=== PATIENT | female | born 1965 | race Caucasian/White ===

== ENCOUNTER 2016-11-19 09:04 | Inpatient (IN) | payer SELFPAY ==
[~2016-11-19] VITALS: Ht 157.5 cm; Wt 47.9 kg
[2016-11-19] VITALS (11 sets, daily range): BP systolic 110–145; BP diastolic 58–86; PULSE 75–103; RESP 18–28; TEMP 97.3–98.6; O2SAT 93–98
[~2016-11-19 09:04] MED LIST: ALBU0.086 INH; ALBU8I INH; ALPR0.5T3 PO; DIAZ5 PO; DILA8TAB4 PO; IPRA0.02 NEB; VENTAER INH; Z.0.OXYGEN INH
[2016-11-19] MEDS ORDERED: ALBU6.7H INH (09:18)
[2016-11-19] MEDS ORDERED: VENTAER INH (09:18)
[2016-11-19] MEDS ORDERED: IPRA17I INH (09:18)
[2016-11-19] MEDS ORDERED: ALPR.5 PO (09:18)
[2016-11-19] MEDS ORDERED: methylPREDNISolone SOD SUCC 125 MG/2 ML VIAL IVP ONE (09:30)
[2016-11-19] MEDS: RESP: ALBUTEROL 2.5 MG/IPRATROPIUM 0.5 MG NEB (SCH) INH ×5 (09:38→23:27)
[2016-11-19] MEDS: SODIUM CHLORIDE 0.9% FLUSH 10 ML FLUSH IVF PRN ×2 (09:42→09:54)
[2016-11-19] MEDS ORDERED: MORPHINE SULFATE 4 MG/ML INJ IV PUSH ONE (09:45)
[2016-11-19 09:51] LABS: AUTOMATED NEUTROPHIL # 7.4 TH/MM3 (1.8-7.7); BASOPHIL # 0.1 TH/MM3 (0-0.2); BASOPHIL % 0.7 % (0.0-2.0); EOSINOPHIL # 0.1 TH/MM3 (0-0.4); EOSINOPHIL % 0.7 % (0.0-4.0); HEMATOCRIT 38.4 % (35.0-46.0); HEMO FLAGS DIFF FINAL; LYMPH % 19.2 % (9.0-44.0); MEAN CORPUSCULAR HEMOGLOBIN 19.8 PG (27.0-34.0); MEAN CORPUSCULAR HGB CONC 31.9 % (32.0-36.0); MONO % 8.9 % (0.0-8.0); NEUT % 70.5 % (16.0-70.0); PLATELET COUNT 387 TH/MM3 (150-450); RED BLOOD COUNT 6.19 MIL/MM3 (4.00-5.30); WHITE BLOOD COUNT 10.5 TH/MM3 (4.0-11.0)
[2016-11-19] MEDS ORDERED: ONDANSETRON HCL 4 MG/2 ML VIAL IV ONE (10:00)
--- NOTE | 2016-11-19 10:02 | PD ---
HPI Chief Complaint: Respiratory Distress Time Seen by Provider: 09:21 Travel History International Travel<30 days: No Contact w/Intl Traveler<30days: No Traveled to known affect area: No History of Present Illness HPI This is a 51-year-old female who has a history of Crohn's disease and COPD on 3 L nasal cannula at home who presents to the emergency department with increasing shortness of breath over the past 2 days, constant, severe, with no associated fever, chills or sputum production. Patient also reports that she's been having abdominal pain which is chronic for her and similar to pain she had from her Crohn's disease in the past. PFSH Past Medical History Hx Anticoagulant Therapy: Yes Arthritis: Yes Asthma: Yes Anxiety: Yes Heart Rhythm Problems: No Cancer: Yes (HX OF COLON CANCER) Cardiovascular Problems: Yes (HTN) High Cholesterol: No Chemotherapy: No Chest Pain: Yes Congestive Heart Failure: Yes COPD: Yes Coronary Artery Disease: Yes Diabetes: No Diminished Hearing: No Endocrine: No Gastrointestinal Disorders: Yes (CROHN'S DISEASE) GERD: Yes Genitourinary: No Headaches: Yes Hepatitis: No Hiatal Hernia: No Hypertension: Yes Immune Disorder: No Inguinal Hernia: Yes Implanted Vascular Access Dvce: No Kidney Stones: No Musculoskeletal: Yes (spasms nerve damage) Neurologic: Yes Psychiatric: Yes Reproductive: Yes Respiratory: Yes (COPD) Migraines: Yes Myocardial Infarction: No Radiation Therapy: No Renal Failure: No Seizures: Yes Sleep Apnea: No Ulcer: No Tetanus Vaccination: > 5 Years Influenza Vaccination: No ?: Not Menopausal: Yes : 3 Para: 3 Miscarriage: 0 : 0 Past Surgical History Abdominal Surgery: Yes (COLON RESECTION) Appendectomy: Yes Cardiac Surgery: No Cholecystectomy: Yes Ear Surgery: No Endocrine Surgery: No Eye Surgery: No Genitourinary Surgery: No Gynecologic Surgery: Yes (hysterectomy) Hysterectomy: Yes Neurologic Surgery: No Oral Surgery: No Pacemaker: No Thoracic Surgery: No Other Surgery: Yes (hysterectomy ) Social History Alcohol Use: Yes (OCASSIONALLY) Tobacco Use: Yes (1-2 PPD) Substance Use: Yes (ETOH) Allergies-Medications (Allergen,Severity, Reaction): Coded Allergies: No Known Allergies (Unverified , 11/19/16) Reported Meds & Prescriptions Reported Meds & Active Scripts Active Reported Atrovent HFA 12.9 GM Inh (Ipratropium [place]) 17 Mcg/Act Aer 2 Puff INH Q6HR PRN Proventil Hfa 6.7 GM Inh (Albuterol Sulfate) 90 Mcg/Act Aer 2 Puff INH Q4-6H PRN Ventolin Hfa 18 GM Inh (Albuterol Sulfate) 90 Mcg/Act Aer 2 Puff INH Q4-6H PRN Xanax (Alprazolam) 0.5 Mg Tab 0.5 Mg PO BID PRN Review of Systems Except as stated in HPI: all other systems reviewed are Neg Physical Exam Narrative GENERAL:Well appearing, no acute distress SKIN: Focused skin assessment warm and dry. HEAD: Atraumatic. Normocephalic. EYES: Pupils equal and round. No injection or drainage. ENT: Moist mucous membranes NECK: Trachea midline. CARDIOVASCULAR: Regular rate and rhythm. No murmur appreciated. RESPIRATORY: Tachypneic, accessory muscle use, diffuse wheezing GASTROINTESTINAL: Abdomen soft, diffusely mildly tender to palpation with no rebound or guarding. Old midline surgical scar. MUSCULOSKELETAL: No obvious deformities. NEUROLOGICAL: Awake and alert. No obvious cranial nerve deficits. Moving all extremities. PSYCHIATRIC: Appropriate mood and affect; insight and judgment normal. Data Data Last Documented VS Vital Signs Date Time Temp Pulse Resp B/P Pulse Ox O2 Delivery O2 Flow Rate FiO2 11/19/16 10:45 98.1 81 20 141/73 97 Room Air 11/19/16 09:54 3 Orders Complete Blood Count With Diff (11/19/16 09:27) Comprehensive Metabolic Panel (11/19/16 09:27) ^ Insert Iv (11/19/16 09:27) Chest, Single Ap (11/19/16 09:27) Ecg Monitoring (11/19/16 09:27) Iv Access Insert/Monitor (11/19/16 09:27) Oximetry (11/19/16 09:27) Oxygen Administration (11/19/16 09:27) Methylprednisolone So Succ Inj (Solumedr (11/19/16 09:30) Albuterol-Ipratropium Neb (Duoneb Neb) (11/19/16 09:30) Sodium Chloride 0.9% Flush (Ns Flush) (11/19/16 09:30) Morphine Inj (Morphine Inj) (11/19/16 09:45) Ondansetron Inj (Zofran Inj) (11/19/16 10:00) Potassium Chloride Eff (K-Lyte Cl Eff) (11/19/16 10:45) Potassium Chlor 20 Meq Premix (Kcl 20 Me (11/19/16 10:45) Electrocardiogram (11/19/16 ) Troponin I (11/19/16 10:53) Labs Laboratory Tests Test 11/19/16 09:45 White Blood Count 10.5 TH/MM3 Red Blood Count 6.19 MIL/MM3 Hemoglobin 12.2 GM/DL Hematocrit 38.4 % Mean Corpuscular Volume 62.0 FL Mean Corpuscular Hemoglobin 19.8 PG Mean Corpuscular Hemoglobin 31.9 % Concent Red Cell Distribution Width 15.0 % Platelet Count 387 TH/MM3 Mean Platelet Volume 9.3 FL Neutrophils (%) (Auto) 70.5 % Lymphocytes (%) (Auto) 19.2 % Monocytes (%) (Auto) 8.9 % Eosinophils (%) (Auto) 0.7 % Basophils (%) (Auto) 0.7 % Neutrophils # (Auto) 7.4 TH/MM3 Lymphocytes # (Auto) 2.0 TH/MM3 Monocytes # (Auto) 0.9 TH/MM3 Eosinophils # (Auto) 0.1 TH/MM3 Basophils # (Auto) 0.1 TH/MM3 CBC Comment DIFF FINAL Differential Comment Sodium Level 146 MEQ/L Potassium Level 2.4 MEQ/L Chloride Level 112 MEQ/L Carbon Dioxide Level 24.9 MEQ/L Anion Gap 9 MEQ/L Blood Urea Nitrogen 8 MG/DL Creatinine 0.57 MG/DL Estimat Glomerular Filtration 113 ML/MIN Rate Random Glucose 97 MG/DL Calcium Level 6.3 MG/DL Protein Corrected Calcium 7.4 MG/DL Total Bilirubin 1.3 MG/DL Aspartate Amino Transf 13 U/L (AST/SGOT) Alanine Aminotransferase 13 U/L (ALT/SGPT) Alkaline Phosphatase 46 U/L Total Protein 4.8 GM/DL Albumin 2.8 GM/DL MDM Medical Decision Making Medical Screen Exam Complete: Yes Emergency Medical Condition: Yes Medical Record Reviewed: Yes (patient has been seen multiple times in the emergency department for Crohn's related abdominal pain. There has been some concern that the patient may be displaying drug-seeking behavior.) Interpretation(s) No leukocytosis Hypokalemia Hypocalcemia Last 24 hours Impressions Chest X-Ray 11/19/16 2169 Signed Impressions: Service Date/Time: Saturday, November 19, 2016 10:13 - CONCLUSION: No acute cardiopulmonary abnormality is identified. Jose Roberto Urrutia MD Differential Diagnosis COPD exacerbation, pneumonia, pulmonary embolism, electrolyte abnormality Narrative Course This is a 51-year-old female who presents to the emergency department with increasing shortness of breath in the setting of COPD. She was diffusely wheezing on arrival with some accessory muscle use. She was given serial bronchodilator treatments and IV steroids and her symptoms improved significantly on reassessment. Labs were obtained which demonstrate hypokalemia and hypocalcemia. Patient does acknowledge that she has been having diarrhea in the setting of her Crohn's disease. This was likely made worse by administration of albuterol. I think patient would benefit from admission for potassium replacement and continued bronchodilator therapy. Diagnosis Primary Impression: COPD exacerbation Additional Impression: Hypokalemia Admitting Information Admitting Physician Requests: Admit Camryn Olvera MD November 19, 2016 10:02
[2016-11-19 10:14] LABS: BICARBONATE 24.9 MEQ/L (21.0-32.0); TOTAL BILIRUBIN ADULT 1.3 MG/DL (0.2-1.0)
[2016-11-19 10:29] LABS: CALCIUM-PROTEIN CORRECTED 7.4 MG/DL (8.5-10.1); POTASSIUM 2.4 MEQ/L (3.5-5.1)
[2016-11-19] MEDS ORDERED: POTASSIUM CHLOR 20 MEQ PREMIX 100 ML IV SCH (10:45)
[2016-11-19] MEDS ORDERED: POTASSIUM CHLORIDE 25 MEQ EFFERVESCENT TAB PO ONE (10:45)
--- NOTE | 2016-11-19 10:47 | RADRPT ---
EXAM DATE/TIME: 11/19/2016 10:13 [facility] COMPARISON: CHEST SINGLE AP, October 10, 2015, 18:06. INDICATIONS : Short of breath. MEDICAL HISTORY : Emphysema. SURGICAL HISTORY : None. ENCOUNTER: Initial ACUITY: 4 - 6 days PAIN SCORE: 3/10 LOCATION: Bilateral lower chest ribs FINDINGS: Portable AP view of the chest demonstrates a normal-sized cardiac silhouette. No effusion, consolidat ion, or pneumothorax is visualized. The bones and soft tissues demonstrate no acute abnormality. Lung s are underinflated. CONCLUSION: No acute cardiopulmonary abnormality is identified. Jose Roberto Urrutia MD on November 19, 2016 at 10:42 Board Certified Radiologist. This report was verified electronically.
--- NOTE | 2016-11-19 11:24 | EKG ---
Date Performed: 11/19/2016 Time Performed: 09:15:11 PTAGE: 51 years EKG: Sinus rhythm MODERATE INTRAVENTRICULAR CONDUCTION DELAY Nonspecific ST-T wave changes Compared to prior electroca rdiogram,Prior EKG may have had limb lead reversal. Anterior T wave changes appear more prominent. PREVIOUS TRACING : 10/10/2015 18.23 DOCTOR: Ace Linares Interpretating Date/Time 11/19/2016 11:23:51
[2016-11-19] MEDS ORDERED: SODIUM CHLORIDE 0.9% FLUSH 10 ML FLUSH IV FLUSH PRN (11:30)
[2016-11-19] MEDS ORDERED: RESP: ALBUTEROL 2.5 MG/3 ML NEB (PRN) INH (11:30)
[2016-11-19] MEDS ORDERED: methylPREDNISolone SOD SUCC 125 MG/2 ML VIAL IVP SCH (11:30)
[2016-11-19] MEDS ORDERED: AZITHROMYCIN 250 MG TAB PO SCH (11:30)
[2016-11-19] MEDS: ENOXAPARIN SODIUM 40 MG/0.4 ML SYRINGE SQ SCH (11:33)
--- NOTE | 2016-11-19 13:29 | HHI.HP ---
[facility] Unknown Admission Diagnosis hypokalemia, copd exacerbation Diagnoses: Chief Complaint: Abdominal pain and shortness of breathing Travel History International Travel<30 Days: No Contact w/Intl Traveler <30 Da: No Traveled to Known Affected Are: No History of Present Illness This is a 51-year-old female past medical history of Crohn's status post partial colectomy, COPD, tobacco dependence, questionable narcotic dependence who presented with shortness of breathing and abdominal pain. Patient stated that she had shortness of breathing 3 days ago. It worsened over the 3 days. She stated that cough is dry. She also complained about abdominal pain and is asking for pain medication. She stated that pain also occurred 3 days ago and that her diarrhea worsened. She stated because of her Crohn's she does have a baseline diarrhea. Patient on prednisone 25 mg daily for Crohn's. She says she does not see a GI doctor for this. Patient denies any use of recent antibiotic use. She also states she has nausea vomiting which has not been witnessed yet. Patient stated to her nurse that has been on Dilaudid although it is not on her med list. Denies any fevers or chills. Review of Systems Constitutional: DENIES: Diaphoretic episodes, Fatigue, Fever, Weight gain, Weight loss, Chills, Dizziness, Change in appetite, Night Sweats Endocrine: DENIES: Abnorml menstrual pattern, Heat/cold intolerance, Polydipsia , Polyuria, Polyphagia Eyes: DENIES: Blurred vision, Diplopia, Eye inflammation, Eye pain, Vision loss , Photosensitivity, Double Vision Ears, nose, mouth, throat: DENIES: Tinnitus, Hearing loss, Vertigo, Nasal discharge, Oral lesions, Throat pain, Hoarseness, Ear Pain, Running Nose, Epistaxis, Sinus Pain, Toothache, Odynophagia Respiratory: COMPLAINS OF: Cough, Wheezing, Shortness of breath, DENIES: Apneas, Snoring, Hemoptysis, Sputum production Cardiovascular: DENIES: Chest pain, Palpitations, Syncope, Dyspnea on Exertion , PND, Lower Extremity Edema, Orthopnea, Claudication Gastrointestinal: COMPLAINS OF: Abdominal pain, Diarrhea, Nausea, Vomiting, DENIES: Black stools, Bloody stools, Constipation, Difficulty Swallowing, Anorexia Genitourinary: DENIES: Abnormal vaginal bleeding, Dysmenorrhea, Dyspareunia, Sexual dysfunction, Urinary frequency, Urinary incontinence, Urgency, Hematuria , Dysuria, Nocturia, Vaginal discharge Musculoskeletal: DENIES: Joint pain, Muscle aches, Stiffness, Joint Swelling, Back pain, Neck pain Integumentary: DENIES: Abnormal pigmentation, Pruritus, Rash, Nail changes, Breast masses, Breast skin changes, Nipple discharge Hematologic/lymphatic: DENIES: Bruising, Lymphadenopathy Immunologic/allergic: DENIES: Eczema, Urticaria Neurologic: DENIES: Abnormal gait, Headache, Localized weakness, Paresthesias, Seizures, Speech Problems, Tremor, Poor Balance Psychiatric: DENIES: Anxiety, Confusion, Mood changes, Depression, Hallucinations, Agitation, Suicidal Ideation, Homicidal Ideation, Delusions Past Family Social History Past Medical History COPD Crohn's Past Surgical History Status post colectomy Reported Medications Reported Meds & Active Scripts Active Reported Atrovent HFA 12.9 GM Inh (Ipratropium [place]) 17 Mcg/Act Aer 2 Puff INH Q6HR PRN Proventil Hfa 6.7 GM Inh (Albuterol Sulfate) 90 Mcg/Act Aer 2 Puff INH Q4-6H PRN Ventolin Hfa 18 GM Inh (Albuterol Sulfate) 90 Mcg/Act Aer 2 Puff INH Q4-6H PRN Xanax (Alprazolam) 0.5 Mg Tab 0.5 Mg PO BID PRN Allergies: Coded Allergies: No Known Allergies (Unverified , 11/19/16) Active Ordered Medications Current Medications Methylprednisolone Sodium Succinate (SoluMEDROL INJ) 125 mg ONCE ONCE IVP Last administered on 11/19/16 09:41; Start 11/19/16 at 09:30; Stop 11/19/16 at 09:32; Status DC Albuterol/ Ipratropium (Duoneb Neb) 1 ampule Q15M INH Last administered on 11/19 09:38; Start 11/19/16 at 09:30; Stop 11/19/16 at 10:01; Status DC Sodium Chloride (NS Flush) 2 ml UNSCH PRN IVF FLUSH AFTER USING IV ACCESS Last administered on 11/19/16 09:54; Start 11/19/16 at 09:30 Morphine Sulfate (Morphine Inj) 2 mg ONCE ONCE IV PUSH Last administered on 09:54; Start 11/19/16 at 09:45; Stop 11/19/16 at 09:46; Status DC Ondansetron HCl (Zofran Inj) 4 mg ONCE ONCE IV Last administered on 11/19/16 09:53; Start 11/19/16 at 10:00; Stop 11/19/16 at 10:01; Status DC Potassium Bicarb/ Potassium Chloride 25 meq 25 meq ONCE ONCE PO Last administered on 11/19/16 10:43; Start 11/19/16 at 10:45; Stop 11/19/16 at 10:46 ; Status DC Potassium Chloride (KCl 20 Meq Premix Inj) 100 ml @ 50 mls/hr Q2H IV Last administered on 11/19/16 10:43; Start 11/19/16 at 10:45; Stop 11/19/16 at 14:44 Sodium Chloride (NS Flush) 2 ml BID IV FLUSH ; Start 11/19/16 at 21:00 Sodium Chloride (NS Flush) 2 ml UNSCH PRN IV FLUSH FLUSH AFTER USING IV ACCESS ; Start 11/19/16 at 11:30 Albuterol/ Ipratropium (Duoneb Neb) 1 ampule Q4HR NEB INH ; Start 11/19/16 at 12:00 Albuterol Sulfate (Albuterol Neb) 2.5 mg Q2HR NEB PRN INH SHORTNESS OF BREATH; Start 11/19/16 at 11:30 Methylprednisolone Sodium Succinate (SoluMEDROL INJ) 60 mg Q6H IVP Last administered on 11/19/16 11:34; Start 11/19/16 at 11:30 Azithromycin (Zithromax) 500 mg Taper DAILY PO ; Start 11/19/16 at 11:30; Stop 11/24/16 at 11:29 Enoxaparin Sodium (Lovenox Inj) 40 mg Q24H SQ Last administered on 11/19/16 11 :33; Start 11/19/16 at 11:30 Alprazolam (Xanax) 0.5 mg BID PRN PO ANXIETY Last administered on 11/19/16 13: 59; Start 11/19/16 at 11:30 Lactobacillus Acidophilus (Lactinex Pkt) 1 gm TID PO Last administered on t 14:07; Start 11/19/16 at 13:00 Morphine Sulfate (Morphine Inj) 2 mg Q3H PRN IV PUSH pain 1-10; Start 11/19/16 at 13:30 Potassium Chloride (KCl) 60 meq ONCE ONCE PO Last administered on 11/19/16t 13 :59; Start 11/19/16 at 14:00; Stop 11/19/16 at 14:01; Status DC Diatrizoate Meglum/ Diatrizoate Sod ( Gastroyessenia Liq) 18 ml ONCE ONCE PO ; Start 11/19/16 at 14:15; Stop 11/19/16 at 14:16; Status DC Flumazenil (Romazicon Inj) 0.2 mg Q1M PRN IV PUSH SEE LABEL COMMENTS; Start at 14:15 Lorazepam (Ativan) 1 mg Q4H PRN PO CIWA 8 - 10; Start 11/19/16 at 14:15 Lorazepam (Ativan Inj) 1 mg Q4H PRN IV PUSH CIWA 8 - 10; Start 11/19/16 at 14: 15 Lorazepam (Ativan) 2 mg Q2H PRN PO CIWA 11-14; Start 11/19/16 at 14:15 Lorazepam (Ativan Inj) 2 mg Q2H PRN IV PUSH CIWA 11-14; Start 11/19/16 at 14:15 Lorazepam (Ativan Inj) 2 mg Q1H PRN IV PUSH CIWA 15-20; Start 11/19/16 at 14:15 Lorazepam (Ativan Inj) 2 mg Q15M PRN IV PUSH CIWA > 20; Start 11/19/16 at 14:15 Family History Mother had a history of lung disease. Father had history of CVA lung disease. Multiple sisters with lung disease. Social History Patient lives with her friend. Smokes about 4 cigarettes a day but used to smoke 2 packs per day for about 10 years. Occasionally drinks alcohol. Denies any illicit drug use. Physical Exam Vital Signs Vital Signs Date Time Temp Pulse Resp B/P Pulse Ox O2 Delivery O2 Flow Rate FiO2 11/19/16 11:49 89 20 138/86 98 Nasal Cannula 3 11/19/16 11:41 97 Nasal Cannula 3.00 11/19/16 10:45 98.1 81 20 141/73 97 Room Air 11/19/16 10:00 20 11/19/16 09:54 22 97 Nasal Cannula 3 11/19/16 09:30 93 Nasal Cannula 3 11/19/16 09:30 27 93 Nasal Cannula 3 11/19/16 09:18 102 26 93 Nasal Cannula 3 11/19/16 09:12 98.6 103 28 145/86 93 Physical Exam GENERAL: This is a well-nourished, well-developed patient, in no apparent distress but she seems very anxious and jittery. SKIN: No rashes, ecchymoses or lesions. Cool and dry. HEAD: Atraumatic. Normocephalic. No temporal or scalp tenderness. EYES: Pupils equal round and reactive. Extraocular motions intact. No scleral icterus. No injection or drainage. ENT: Nose without bleeding, purulent drainage or septal hematoma. Throat without erythema, tonsillar hypertrophy or exudate. Uvula midline. Airway patent. NECK: Trachea midline. No JVD or lymphadenopathy. Supple, nontender, no meningeal signs. CARDIOVASCULAR: Regular rate and rhythm without murmurs, gallops, or rubs. RESPIRATORY: Clear to auscultation. Breath sounds equal bilaterally. No wheezes , rales, or rhonchi. GASTROINTESTINAL: Abdomen soft, positive for diffuse tenderness to palpation with moderate palpation, nondistended. No hepato-splenomegaly, or palpable masses. No guarding. MUSCULOSKELETAL: Extremities without clubbing, cyanosis, or edema. No joint tenderness, effusion, or edema noted. No calf tenderness. Negative Homans sign bilaterally. NEUROLOGICAL: Awake and alert. Cranial nerves II through XII intact. Motor and sensory grossly within normal limits. Five out of 5 muscle strength in all muscle groups. Normal speech. Laboratory Laboratory Tests Test 11/19/16 11/19/16 09:45 11:00 White Blood Count 10.5 Red Blood Count 6.19 Hemoglobin 12.2 Hematocrit 38.4 Mean Corpuscular Volume 62.0 Mean Corpuscular Hemoglobin 19.8 Mean Corpuscular Hemoglobin 31.9 Concent Red Cell Distribution Width 15.0 Platelet Count 387 Mean Platelet Volume 9.3 Neutrophils (%) (Auto) 70.5 Lymphocytes (%) (Auto) 19.2 Monocytes (%) (Auto) 8.9 Eosinophils (%) (Auto) 0.7 Basophils (%) (Auto) 0.7 Neutrophils # (Auto) 7.4 Lymphocytes # (Auto) 2.0 Monocytes # (Auto) 0.9 Eosinophils # (Auto) 0.1 Basophils # (Auto) 0.1 CBC Comment DIFF FINAL Differential Comment Sodium Level 146 Potassium Level 2.4 Chloride Level 112 Carbon Dioxide Level 24.9 Anion Gap 9 Blood Urea Nitrogen 8 Creatinine 0.57 Estimat Glomerular Filtration 113 Rate Random Glucose 97 Calcium Level 6.3 Protein Corrected Calcium 7.4 Total Bilirubin 1.3 Aspartate Amino Transf 13 (AST/SGOT) Alanine Aminotransferase 13 (ALT/SGPT) Alkaline Phosphatase 46 Total Protein 4.8 Albumin 2.8 Magnesium Level 2.1 Troponin I LESS THAN 0.02 Result Diagram: 11/19/16 0945 11/19/1645 Imaging Last Impressions Chest X-Ray 11/19/1627 Signed Impressions: Service Date/Time: Saturday, November 19, 2016 10:13 - CONCLUSION: No acute cardiopulmonary abnormality is identified. Jose Roberto Urrutia MD Assessment and Plan Assessment and Plan 51-year-old female history of Crohn's and COPD COPD exacerbation, mild -During my clinical exam I did not appreciate any wheezing. Her exam is normal. She has good oxygen saturation. -Will put her on oral steroids. Start Z-Girish since she did have increased symptoms. Scheduled DuoNeb's and appendectomy or when necessary. -Supplement with oxygen as needed only if oxygen saturation is less than 80%. -Continue to monitor clinically. Abdominal pain/diarrhea/nausea vomiting -Patient does have a history of Crohn's. On examination patient seemed very jittery and anxious. Unsure if patient is withdrawing from any medication. She does have a history of chronic narcotic use. -We will get a CT scan of her abdomen and pelvis, stool studies, urine drug screen. Although patient stated that she does not drink alcohol will start the CIWA protocol since I am seeing signs of withdrawals. -Will give morphine when necessary for pain. -Patient also told to stay for stools and she'll nurse her vomit. I also dealt with patient's nurse in regards to medical management. -At the moment will give supportive care with anti-emetics and IV fluids. Severe hypokalemia -May be due to GI losses. -No tall T waves on EKG and patient is asymptomatic. -Patient did not tolerate IV potassium. We'll continue with oral potassium and follow closely. We'll monitor over telemetry. We'll also check a magnesium level. Crohn's -Status post colectomy. -Restart prednisone which she is on for COPD exacerbation. Anxiety -Xanax were restarted. Patient is also on the CIWA protocol. DVT prophylaxis -Lovenox Code Status full Discussed Condition With patient and her nurse Physician Certification 2 Midnight Certification Type: Admission for Inpatient Services Order for Inpatient Services The services are ordered in accordance with Medicare regulations or non- Medicare payer requirements, as applicable. In the case of services not specified as inpatient-only, they are appropriately provided as inpatient services in accordance with the 2-midnight benchmark. Estimated LOS (days): 2 2 days is the estimated time the patient will need to remain in the hospital, assuming treatment plan goals are met and no additional complications. Post-Hospital Plan: [place] Em Cobos MD November 19, 2016 13:29
[2016-11-19] MEDS: ALPRAZolam 0.5 MG TAB PO PRN (13:59)
[2016-11-19] MEDS ORDERED: POTASSIUM CHLORIDE 20 MEQ CONTROLLED RELEASE TAB PO ONE (14:00)
[2016-11-19] MEDS: LACTOBACILLUS ACIDOPHILUS 1 GM PACKET PO SCH ×2 (14:07→16:53)
[2016-11-19] MEDS ORDERED: LORazepam 2 MG TAB PO PRN (14:15)
[2016-11-19] MEDS ORDERED: LORazepam 1 MG TAB PO PRN (14:15)
[2016-11-19] MEDS ORDERED: LORazepam 2 MG/ML VIAL IV PUSH PRN ×3 (14:15)
[2016-11-19] MEDS ORDERED: FLUMAZENIL 0.5 MG/5 ML VIAL IV PUSH PRN (14:15)
[2016-11-19] MEDS ORDERED: DIATRIZOATE MEGLUM/DIATRIZOATE SOD 9 ML CUP PO ONE (14:15)
[2016-11-19] MEDS: MORPHINE SULFATE 4 MG/ML INJ IV PUSH PRN ×3 (14:55→22:00)
[2016-11-19] MEDS: SODIUM CHLOR 0.9% 1000 ML INJ 1,000 ML IV SCH (15:00)
[2016-11-19] MEDS: LORazepam 2 MG/ML VIAL IV PUSH PRN ×2 (16:41→22:00)
[2016-11-19 17:17] LABS: AMPHETAMINE, URINE NEG (NEG); BARBITURATES, URINE NEG (NEG); COCAINE, URINE POS (NEG)
[2016-11-19 20:45] LABS: C. DIFF EPI 027 PRESUMPTIVE NEGATIVE (NEGATIVE); C. DIFF TOXIN PCR NEGATIVE (NEGATIVE)
[2016-11-19] MEDS ORDERED: IOHEXOL 350 MG/ML 10 ML VIAL (for RAD DIAG) IV ONE ×2 (20:45→20:50)
[2016-11-19] MEDS: SODIUM CHLORIDE 0.9% FLUSH 10 ML FLUSH IV FLUSH SCH (21:19)
--- NOTE | 2016-11-19 21:20 | RADRPT ---
EXAM DATE/TIME: 11/19/2016 20:39 [facility] COMPARISON: CT ABDOMEN & PELVIS W CONTRAST, January 29, 2015, 21:52. INDICATIONS : Abdomen pain. IV CONTRAST: 90 cc Omnipaque 350 (iohexol) IV ORAL CONTRAST: Partial prescribed oral contrast ingested. RADIATION DOSE: 7.42 CTDIvol (mGy) MEDICAL HISTORY : Hypertension. Chrons. SURGICAL HISTORY : Appendectomy. Cholecystectomy.Hysterectomy.Colon resection ENCOUNTER: Initial ACUITY: 1 day PAIN SCALE: 4/10 LOCATION: Bilateral abdomen. TECHNIQUE: Volumetric scanning of the abdomen and pelvis was performed. Using automated exposure control and ad justment of the mA and/or kV according to patient size, radiation dose was kept as low as reasonably achievable to obtain optimal diagnostic quality images. FINDINGS: LOWER LUNGS: Minimal scattered fibrotic scarring and/or atelectasis is noted within the lung bases. LIVER: The liver is enlarged. Homogeneous density without lesion. There is no dilation of the biliary tree. No calcified gallstones. Status post cholecystectomy. SPLEEN: Normal size without lesion. PANCREAS: Within normal limits. KIDNEYS: Normal in size and shape. There is no mass, stone or hydronephrosis. ADRENAL GLANDS: Within normal limits. VASCULAR: There is no aortic aneurysm. BOWEL/MESENTERY: The stomach, small bowel, and colon demonstrate no acute abnormality. There is no free intraperitone al air or fluid. ABDOMINAL WALL: Within normal limits. RETROPERITONEUM: There is no lymphadenopathy. BLADDER: No wall thickening or mass. REPRODUCTIVE: Within normal limits. INGUINAL: There is no lymphadenopathy or hernia. MUSCULOSKELETAL: Mild degenerative changes and scoliosis of the thoraco-lumbar spine are noted.. CONCLUSION: Hepatomegaly. Mild degenerative changes and scoliosis of the thoraco-lumbar spine. Mi nimal scattered bibasilar atelectasis and/or scarring. Obie Baca MD on November 19, 2016 at 21:14 Board Certified Radiologist. This report was verified electronically.
[2016-11-19] MEDS: ONDANSETRON HCL 4 MG/2 ML VIAL IV PUSH PRN (22:01)
[2016-11-20] VITALS: BP_SYST 101; BP_SYST 113; BP_DIAS 55; BP_DIAS 72; PULSE 78; PULSE 85; RESP 19; RESP 21; TEMP 97.7; TEMP 98; O2SAT 94; O2SAT 99
[2016-11-20] MEDS: MORPHINE SULFATE 4 MG/ML INJ IV PUSH PRN ×2 (03:38→09:12)
[2016-11-20] MEDS: ONDANSETRON HCL 4 MG/2 ML VIAL IV PUSH PRN (03:38)
[2016-11-20] MEDS: LORazepam 2 MG/ML VIAL IV PUSH PRN (03:39)
[2016-11-20 04:00] VITALS: BP 102/53; PULSE 83; RESP 20; TEMP 97.6; O2SAT 95
[2016-11-20] MEDS: SODIUM CHLOR 0.9% 1000 ML INJ 1,000 ML IV SCH (04:04)
[2016-11-20] MEDS: RESP: ALBUTEROL 2.5 MG/IPRATROPIUM 0.5 MG NEB (SCH) INH ×2 (04:13→08:00)
[2016-11-20 07:37] LABS: HEMATOCRIT 34.9 % (35.0-46.0); MEAN CELL VOLUME 63.5 FL (80.0-100.0); MEAN CORPUSCULAR HEMOGLOBIN 19.1 PG (27.0-34.0); MEAN CORPUSCULAR HGB CONC 30.1 % (32.0-36.0); PLATELET COUNT 329 TH/MM3 (150-450); RED CELL DISTRIBUTION WIDTH 15.1 % (11.6-17.2); REVIEW FLAG FINAL; WHITE BLOOD COUNT 14.8 TH/MM3 (4.0-11.0)
[2016-11-20 08:00] VITALS: BP 101/60; PULSE 74; RESP 20; TEMP 97.9; O2SAT 100
[2016-11-20 08:11] VITALS: PULSE 81
[2016-11-20 08:12] LABS: BICARBONATE 30.6 MEQ/L (21.0-32.0); POTASSIUM 3.8 MEQ/L (3.5-5.1)
[2016-11-20] MEDS ORDERED: predniSONE 50 MG TAB PO SCH (09:00)
[2016-11-20] MEDS: SODIUM CHLORIDE 0.9% FLUSH 10 ML FLUSH IV FLUSH SCH (09:00)
[2016-11-20] MEDS: LACTOBACILLUS ACIDOPHILUS 1 GM PACKET PO SCH (09:09)
[2016-11-20] MEDS: ALPRAZolam 0.5 MG TAB PO PRN (09:17)
[2016-11-20] MEDS ORDERED: AZIT250T3 PO (10:26)
[2016-11-20] MEDS ORDERED: PRED50 PO (10:26)
--- NOTE | 2016-11-20 10:27 | HHI.DCPOC ---
Discharge Care Plan Diagnosis: (1) Hypokalemia (2) COPD exacerbation Goals to Promote Your Health * To prevent worsening of your condition and complications * To maintain your health at the optimal level Directions to Meet Your Goals Take your medications as prescribed Follow your dietary instruction Follow activity as directed Keep your appointments as scheduled Take your immunizations and boosters as scheduled If your symptoms worsen call your PCP, if no PCP go to Urgent Care Center or Emergency Room Smoking is Dangerous to Your Health. Avoid second hand smoke Call the 24-hour hour crisis hotline for domestic abuse at Em Cobos MD November 20, 2016 10:26
--- NOTE | 2016-11-20 10:29 | HHI.DS ---
Discharge Summary Admission Date November 19, 2016 at 11:23 Discharge Date: November 20, 2016 Admitting Diagnosis hypokalemia, copd exacerbation (1) COPD exacerbation ICD Code: J44.1 Diagnosis: Principal (2) Hypokalemia ICD Code: E87.6 Diagnosis: Principal (3) Abdominal pain ICD Code: R10.9 Diagnosis: Principal (4) Cocaine abuse ICD Code: F14.10 Diagnosis: Principal Procedures see hospital Brief History - From Admission This is a 51-year-old female past medical history of Crohn's status post partial colectomy, COPD, tobacco dependence, questionable narcotic dependence who presented with shortness of breathing and abdominal pain. Patient stated that she had shortness of breathing 3 days ago. It worsened over the 3 days. She stated that cough is dry. She also complained about abdominal pain and is asking for pain medication. She stated that pain also occurred 3 days ago and that her diarrhea worsened. She stated because of her Crohn's she does have a baseline diarrhea. Patient on prednisone 25 mg daily for Crohn's. She says she does not see a GI doctor for this. Patient denies any use of recent antibiotic use. She also states she has nausea vomiting which has not been witnessed yet. Patient stated to her nurse that has been on Dilaudid although it is not on her med list. Denies any fevers or chills. CBC/BMP: 11/20/16 0550 11/20/16 0550 Significant Findings Laboratory Tests Test 11/19/16 11/19/16 11/19/16 11/20/16 09:45 11:00 16:45 05:50 Red Blood Count 6.19 MIL/MM3 5.50 MIL/MM3 (4.00-5.30) (4.00-5.30) Mean Corpuscular Volume 62.0 FL 63.5 FL (80.0-100.0) (80.0-100.0) Mean Corpuscular Hemoglobin 19.8 PG 19.1 PG (27.0-34.0) (27.0-34.0) Mean Corpuscular Hemoglobin 31.9 % 30.1 % Concent (32.0-36.0) (32.0-36.0) Neutrophils (%) (Auto) 70.5 % (16.0-70.0) Monocytes (%) (Auto) 8.9 % (0.0-8.0) Sodium Level 146 MEQ/L (136-145) Potassium Level 2.4 MEQ/L (3.5-5.1) Chloride Level 112 MEQ/L (98-107) Calcium Level 6.3 MG/DL (8.5-10.1) Protein Corrected Calcium 7.4 MG/DL (8.5-10.1) Total Bilirubin 1.3 MG/DL (0.2-1.0) Aspartate Amino Transf 13 U/L (15-37) (AST/SGOT) Total Protein 4.8 GM/DL (6.4-8.2) Albumin 2.8 GM/DL (3.4-5.0) Troponin I LESS THAN 0.02 NG/ML (0.02-0.05) Urine Cocaine Screen POS (NEG) White Blood Count 14.8 TH/MM3 (4.0-11.0) Hemoglobin 10.5 GM/DL (11.6-15.3) Hematocrit 34.9 % (35.0-46.0) Blood Urea Nitrogen 5 MG/DL (7-18) Imaging Last Impressions Chest X-Ray 11/19/16 0927 Signed Impressions: Service Date/Time: Saturday, November 19, 2016 10:13 - CONCLUSION: No acute cardiopulmonary abnormality is identified. Jose Roberto Urrutia MD Abdomen/Pelvis CT 11/19/16 0000 Signed Impressions: Service Date/Time: Saturday, November 19, 2016 20:39 - CONCLUSION: Hepatomegaly. Mild degenerative changes and scoliosis of the thoraco-lumbar spine. Minimal scattered bibasilar atelectasis and/or scarring. Obie Baca MD PE at Discharge GENERAL: in NAD CARDIOVASCULAR: Regular rate and rhythm without murmurs, gallops, or rubs. RESPIRATORY: Breath sounds equal bilaterally. No accessory muscle use. GASTROINTESTINAL: Abdomen soft, non-tender, nondistended. MUSCULOSKELETAL: No cyanosis, or edema. BACK: Nontender without obvious deformity. No CVA tenderness. Pt update on day of discharge Follow-up for abdominal pain patient stated that abdominal pain has improved. She denied any shortness of breathing or cough. She stated that she had some GI bleed. When I spoke to the nurse and her tech, they stated that there was a little bit of blood on the toilet paper but there was no blood in her stools. Otherwise she continues to deny that she does not use cocaine despite her urine being positive. Hospital Course 51-year-old female history of Crohn's and COPD COPD exacerbation, mild -Patient was admitted for mild COPD exacerbation based on ER physician's clinical exam. When I met patient she had no wheezing. She was treated as a COPD exacerbation with steroids, Z-Girish, DuoNeb's. -Symptoms resolved quickly the next day. In which she was asymptomatic. Abdominal pain/diarrhea/nausea vomiting -Patient does have a history of Crohn's. On examination patient seemed very jittery and anxious. Unsure if patient is withdrawing from any medication. She does have a history of chronic narcotic use. -Although patient did complain of diarrhea and nausea vomiting there were no witness episode of this during hospitalization. CT scan of her abdomen and pelvis was done which was negative. -After results was given to patient she denies any more symptoms. Blood per rectum -Mild blood per rectum per her nurse and tech this was more like a smear on toilet paper. No bloody stools. -Hemoglobin is stable. Patient also hemodynamically stable. Patient told she can be discharged to home with follow-up with her GI physician. Severe hypokalemia -May be due to GI losses. -No tall T waves on EKG and patient is asymptomatic. -Patient was given potassium supplement and it resolved quickly. Crohn's -Status post colectomy. -Noncompliant. She does not have a GI doctor. -Imaging does not show any flare up. -Patient told to follow with her PCP as outpatient. Anxiety -Xanax were restarted. Patient is also on the [facility] protocol. Cocaine abuse -Patient showed signs of withdrawing so urine drug analysis was done which was positive for cocaine. Prior to doing the urinalysis patient denies any illicit drug use. She states she does not do any type of drugs. When I told patient the results she continues to denied any cocaine or illicit drug use. I told patient that if she was doing cocaine that one time use can lead to . Patient stated that she understood. Pt Condition on Discharge: Stable Discharge Disposition: Discharge Home Discharge Time: <= 30 minutes Discharge Instructions DIET: Follow Instructions for: As Tolerated, No Restrictions Activities you can perform: Regular-No Restrictions Follow up Referrals: Gastroenterology - 2 Weeks PCP Follow-up - 1 Week Continued Medications: Albuterol 18 GM Inh (Ventolin Hfa 18 GM Inh) 90 Mcg/Act Aer 2 PUFF INH Q4-6H PRN SHORTNESS OF BREATH #1 Ref 0 INHALER Albuterol 6.7 GM Inh (Proventil Hfa 6.7 GM Inh) 90 Mcg/Act Aer 2 PUFF INH Q4-6H PRN SHORTNESS OF BREATH #1 Ref 0 INHALER Alprazolam (Xanax) 0.5 Mg Tab 0.5 MG PO BID PRN ANXIETY Ref 0 TAB Ipratropium HFA 12.9 GM Inh (Atrovent HFA 12.9 GM Inh) 17 Mcg/Act Aer 2 PUFF INH Q6HR PRN SHORTNESS OF BREATH #1 Ref 0 INHALER Em Cobos MD November 20, 2016 10:29
[2016-11-20] MEDS: ENOXAPARIN SODIUM 40 MG/0.4 ML SYRINGE SQ SCH (11:30)
[2016-11-21] MEDS ORDERED: BENZ100 PO (17:13)
[2016-11-21] MEDS ORDERED: ZOFR4TAB PO (17:13)
[2016-11-21] MEDS ORDERED: DILA8TAB4 PO (17:13)
[2016-11-21] MEDS ORDERED: HYDR-3535 PO (17:13)
== END 2016-11-20 12:23 | disposition home or self-care (01) | DRG 191 ==
LOC: NEPE 09:04 → NEDA 11:23 → N04B 12:26 → N04A 23:07
PROVIDERS: ADMIT Family Medicine; ATTEND Family Medicine
DX: J44.1 Chronic obstructive pulmonary disease with (acute) exacerbation (principal); K50.90 Crohn's disease, unspecified, without complications; E87.6 Hypokalemia; Z90.49 Acquired absence of other specified parts of digestive tract; F17.210 Nicotine dependence, cigarettes, uncomplicated; Z79.52 Long term (current) use of systemic steroids; Z79.891 Long term (current) use of opiate analgesic; F41.9 Anxiety disorder, unspecified
CPT/HCPCS: 71010; 74177; 80048; 80053; 80307; 83735; 84132; 84484; 85025; 85027; 87205; 87493; 87506; 93005; 94640; 94664; 96374; 96375; J1650; J2060; J2270; J2405; J2930; J3480; J7030; J7512; Q9963; Q9967

== ENCOUNTER 2016-11-21 00:39 | Emergency (ER) | payer SELFPAY ==
[~2016-11-21] VITALS: Ht 160 cm; Wt 47.0 kg
[~2016-11-21 00:39] MED LIST changes: -ALBU0.086 INH; +ALBU6.7H INH; -ALBU8I INH; +ALPR.5 PO; -ALPR0.5T3 PO; +AZIT250T3 PO; -DIAZ5 PO; -DILA8TAB4 PO; -IPRA0.02 NEB; +IPRA17I INH; +PRED50 PO; -Z.0.OXYGEN INH
[2016-11-21 00:42] VITALS: BP 139/72; PULSE 102; RESP 24; TEMP 98.8; O2SAT 92
[2016-11-21 00:47] VITALS: BP 141/74; PULSE 95; RESP 20; O2SAT 94
[2016-11-21] MEDS ORDERED: SODIUM CHLORIDE 0.9% FLUSH 10 ML FLUSH IVF PRN (01:15)
[2016-11-21] MEDS ORDERED: methylPREDNISolone SOD SUCC 125 MG/2 ML VIAL IVP ONE (01:15)
[2016-11-21] MEDS: RESP: ALBUTEROL 2.5 MG/IPRATROPIUM 0.5 MG NEB (SCH) INH (01:24)
--- NOTE | 2016-11-21 01:31 | PD ---
HPI Chief Complaint: Respiratory Distress Time Seen by Provider: 01:12 Travel History International Travel<30 days: No Contact w/Intl Traveler<30days: No Traveled to known affect area: No History of Present Illness HPI The patient is a 51 year old female who presents to the [facility] emergency department with a history of shortness of breath, abdominal pain, and blood in her stool that became worse after being discharged from the hospital at lunch today. She has had N/V for 2 days. It is yellow in color. It occurs 3 x per day. She reports that she went out with a friend and had a sip of an alcoholic beverage and spent the day out with him prior to the symptoms worsening. She reports that she has not been home to take her prescribed Zofran for nausea. She reports that she does have chronic diarrhea related to a history of Crohn's disease and having most of her large intestine removed, however her diarrhea has worsened compared to baseline. She reports that she's had blood in her stool that began prior to discharge. The patient had a CT scan of the abdomen and pelvis done on November 19 with IV contrast that showed hepatomegaly, mild degenerative changes and scoliosis of the thoracic or lumbar spine, minimal scattered basilar atelectasis and/or scarring, no other acute abnormality. She reports that her SOB, abdominal pain, and blood in her stool became worse after discharge so she came back to the ED. She has not gotten her discharge prescription filled yet. She is unsure what she was discharged on, however it appears that she was discharged on prednisone and azithromycin. The patient incidentally reports that she was previously on Dilaudid or hydrocodone for her chronic abdominal pain, however recently due to losing insurance she has not had hydrocodone for the last week and has not had any Dilaudid for the last 3 weeks. She denies having a GI doctor. Her PCP is Dr. Cantrell. The patient denies any known recent fevers, neck pain, chest pain, urinary symptoms , or neurologic symptoms. [facility] Past Medical History Narrative Medical The patient's past medical history is significant for being on home oxygen at 3 L continuous for COPD, Crohn's disease, colon cancer- dx 1 year ago- last colonoscopy was reportedly 8 months ago, seizure, chronic abdominal pain- she was on lortab and dilaudid but lost her insurance and last took a lortab 1 week ago, last dilaudid 3 weeks ago (reportedly prescribed by Dr. Cantrell) Hx Anticoagulant Therapy: No Arthritis: Yes Asthma: Yes Anxiety: Yes Heart Rhythm Problems: No Cancer: Yes (HX OF COLON CANCER) Cardiovascular Problems: Yes (HTN) High Cholesterol: No Chemotherapy: No Chest Pain: Yes Congestive Heart Failure: Yes COPD: Yes Coronary Artery Disease: Yes Diabetes: No Diminished Hearing: No Endocrine: No Gastrointestinal Disorders: Yes (CROHN'S DISEASE) GERD: Yes Genitourinary: No Headaches: Yes Hepatitis: No Hiatal Hernia: No Hypertension: Yes Immune Disorder: No Inguinal Hernia: No Implanted Vascular Access Dvce: No Kidney Stones: No Musculoskeletal: Yes (spasms nerve damage) Neurologic: Yes Psychiatric: Yes Reproductive: Yes Respiratory: Yes (COPD) Migraines: Yes Myocardial Infarction: No Radiation Therapy: No Renal Failure: No Seizures: Yes Sleep Apnea: No Ulcer: No Tetanus Vaccination: > 5 Years Influenza Vaccination: No ?: Not Menopausal: Yes : 3 Para: 3 Miscarriage: 0 : 0 Past Surgical History Narrative Surgical The patient's past surgical history is significant for partial colon resection, appendectomy, cholecystectomy Abdominal Surgery: Yes (COLON RESECTION) Appendectomy: Yes Cardiac Surgery: No Cholecystectomy: Yes Ear Surgery: No Endocrine Surgery: No Eye Surgery: No Genitourinary Surgery: No Gynecologic Surgery: Yes (hysterectomy) Hysterectomy: Yes Neurologic Surgery: No Oral Surgery: No Pacemaker: No Thoracic Surgery: No Other Surgery: Yes (hysterectomy ) Social History Alcohol Use: Yes (OCASSIONALLY) Tobacco Use: Yes (1-2 PPD) Substance Use: Yes (ETOH) Allergies-Medications (Allergen,Severity, Reaction): Coded Allergies: No Known Allergies (Unverified , 11/19/16) Reported Meds & Prescriptions Reported Meds & Active Scripts Active Prednisone 50 Mg Tab 50 Mg PO DAILY Azithromycin 250 Mg Tab 250 Mg PO DAILY Reported Atrovent HFA 12.9 GM Inh (Ipratropium [place]) 17 Mcg/Act Aer 2 Puff INH Q6HR PRN Proventil Hfa 6.7 GM Inh (Albuterol Sulfate) 90 Mcg/Act Aer 2 Puff INH Q4-6H PRN Ventolin Hfa 18 GM Inh (Albuterol Sulfate) 90 Mcg/Act Aer 2 Puff INH Q4-6H PRN Xanax (Alprazolam) 0.5 Mg Tab 0.5 Mg PO BID PRN Review of Systems Except as stated in HPI: all other systems reviewed are Neg General / Constitutional: No: Fever Eyes: No: Visual changes HENT: No: Headaches Cardiovascular: No: Chest Pain or Discomfort Respiratory: Positive: Cough, Shortness of Breath, Wheezing Gastrointestinal: Positive: Nausea, Vomiting, Diarrhea, Abdominal Pain, Hematochezia, Changes in Bowel Habits, No: Hematemesis, Indigestion, Loss of Appetite Genitourinary: No: Dysuria Musculoskeletal: No: Pain Skin: No Rash Neurologic: No: Weakness, Change in Mentation, Slurred Speech, Sensory Disturbance Psychiatric: No: Depression Endocrine: No: Polydipsia Hematologic/Lymphatic: No: Easy Bruising Physical Exam Narrative General: The patient is a well-developed well-nourished female in no acute distress Head and Neck exam: Head is normocephalic atraumatic. Eyes: EOMI, pupils are equal round and reactive to light. Nose: Midline septum with pink mucous membranes Mouth: Dentition unremarkable. Moist mucus membranes. Posterior oropharynx is not erythematous. No tonsillar hypertrophy. Uvula midline. Airway patent. Neck: No palpable lymphadenopathy. No nuchal rigidity. No thyromegaly. Cardiovascular: Regular rate and rhythm without murmurs, gallops, or rubs. Lungs: Soft expiratory wheezes are audible in bilateral lung [place] posteriorly. The patient has no tripoding. No accessory muscle use. No paroxysmal abdominal breathing. The patient on room air is saturating 94%. On her usual 3 L the patient is saturating 97%. Abdomen: Soft, with reported discomfort on deep palpation in the mid epigastric and suprapubic area, no other tenderness on palpation of the other quadrants of the abdomen. No guarding, rebound, or rigidity. Normal bowel sounds are audible. No tenderness on palpation of McBurney's point. Negative Capone sign. Extremities: No clubbing, cyanosis, or edema. 2+ pulses in all 4 extremities. No calf tenderness on palpation. Back: No costovertebral angle tenderness to palpation. Neurologic Exam: Grossly nonfocal. Skin Exam: No rash noted. Intact skin that is warm and dry. Data Data Last Documented VS Vital Signs Date Time Temp Pulse Resp B/P Pulse Ox O2 Delivery O2 Flow Rate FiO2 11/21/16 01:50 98 Nasal Cannula 3 11/21/16 00:47 95 20 141/74 11/21/16 00:42 98.8 Orders Electrocardiogram (11/21/16 01:14) Complete Blood Count With Diff (11/21/16 01:14) Comprehensive Metabolic Panel (11/21/16 01:14) Creatine Kinase (Cpk) (11/21/16 01:14) Ckmb (Isoenzyme) Profile (11/21/16 01:14) Troponin I (11/21/16 01:14) B-Type Natriuretic Peptide (11/21/16 01:14) Lipase (11/21/16 01:14) Urinalysis - C+S If Indicated (11/21/16 01:14) Westergren Sedimentation Rate (11/21/16 01:14) Chest, Single Ap (11/21/16 01:14) Iv Access Insert/Monitor (11/21/16 01:14) Ecg Monitoring (11/21/16 01:14) Oximetry (11/21/16 01:14) Ed Urine Pregnancytest Poc (11/21/16 01:14) Sodium Chloride 0.9% Flush (Ns Flush) (11/21/16 01:15) Methylprednisolone So Succ Inj (Solumedr (11/21/16 01:15) Albuterol-Ipratropium Neb (Duoneb Neb) (11/21/16 01:15) Sodium Chlor 0.9% 1000 Ml Inj (Ns 1000 M (11/21/16 01:45) Ondansetron Inj (Zofran Inj) (11/21/16 01:45) Sodium Chlorid 0.9% 500 Ml Inj (Ns 500 M (11/21/16 02:45) Acetamin-Hydrocod 325-5 Mg ([place] 5-325 (11/21/16 02:45) Abdomen, Flat & Upright (11/21/16 03:16) Labs Laboratory Tests Test 11/21/16 01:40 White Blood Count 17.0 TH/MM3 Red Blood Count 5.43 MIL/MM3 Hemoglobin 10.6 GM/DL Hematocrit 34.0 % Mean Corpuscular Volume 62.6 FL Mean Corpuscular Hemoglobin 19.5 PG Mean Corpuscular Hemoglobin 31.2 % Concent Red Cell Distribution Width 14.8 % Platelet Count 365 TH/MM3 Mean Platelet Volume 9.3 FL Neutrophils (%) (Auto) 74.7 % Lymphocytes (%) (Auto) 18.2 % Monocytes (%) (Auto) 6.5 % Eosinophils (%) (Auto) 0.2 % Basophils (%) (Auto) 0.4 % Neutrophils # (Auto) 12.7 TH/MM3 Lymphocytes # (Auto) 3.1 TH/MM3 Monocytes # (Auto) 1.1 TH/MM3 Eosinophils # (Auto) 0.0 TH/MM3 Basophils # (Auto) 0.1 TH/MM3 CBC Comment DIFF FINAL Differential Comment Erythrocyte Sedimentation Rate 1 mm/hr Sodium Level 142 MEQ/L Potassium Level 4.3 MEQ/L Chloride Level 101 MEQ/L Carbon Dioxide Level 36.8 MEQ/L Anion Gap 4 MEQ/L Blood Urea Nitrogen 6 MG/DL Creatinine 0.57 MG/DL Estimat Glomerular Filtration 113 ML/MIN Rate Random Glucose 86 MG/DL Calcium Level 8.9 MG/DL Total Bilirubin 1.5 MG/DL Aspartate Amino Transf 23 U/L (AST/SGOT) Alanine Aminotransferase 22 U/L (ALT/SGPT) Alkaline Phosphatase 55 U/L Total Creatine Kinase 95 U/L Troponin I LESS THAN 0.02 NG/ML B-Type Natriuretic Peptide 54 PG/ML Total Protein 6.2 GM/DL Albumin 3.7 GM/DL Lipase 127 U/L MDM Medical Decision Making Medical Screen Exam Complete: Yes Emergency Medical Condition: Yes Medical Record Reviewed: Yes Differential Diagnosis Crohn's exacerbation, versus COPD exacerbation, versus drug-seeking behavior, versus dehydration, versus symptomatic anemia, versus electrolyte derangement Narrative Course During the course of the patients emergency department visit, the patients history, examination, and differential diagnosis were reviewed with the patient. The patient had IV access for him to be obtained in this patient, however she was difficult to obtain IV access and, thus I placed a right-sided external jugular IV in the patient's neck. The patient tolerated the procedure well. The line flushed well. The patient's blood was sent for analysis. The patient had an EKG done on arrival that shows a sinus rhythm heart rate of 92, moderate intraventricular conduction delay with a QRS duration of 117 ms, QTC 433 ms, no acute ST segment elevation or depression, T waves inverted in V1. The patient was initially provided a DuoNeb 2, Solu-Medrol 60 mg IV as the patient was discharged earlier today from the hospital, Zofran 4 mg IV, normal saline 1 L IV fluid bolus. The patient was given hydrocodone 5 mg by mouth 1 for pain. The patient was given a second fluid bolus of 500 mL. The patients laboratory studies were reviewed and remarkable for a white count of 17 which is likely related to the increase in her steroids dose while in the hospital, hemoglobin stable compared to previously at 10.6, platelets 365, neutrophils 74.7, sedimentation rate is 1 decreased the likelihood of a Crohn's exacerbation. CMP is remarkable for CO2 of 36.8 consistent with the patient's COPD, BUN 6, total bilirubin 1.5, CPK 95, troponin I less than 0.02, BNP is 54, lipase 127. Radiology studies were reviewed and remarkable for an abdominal flat and upright shows a nonspecific bowel gas pattern, no evidence of free air, no evidence of obstruction. As the patient recently had a CT 2 days ago and the patient's abdominal examination is benign, I do not see the need for a repeat CT at this time. The patient has remained stable during her emergency department evaluation. She has not had any episodes of vomiting or diarrhea. The patient's O2 saturations have been maintained on her usual supplemental oxygen. The patient will be discharged home to follow-up with her primary care physician and personnel records clerk. The patient is resting comfortably and feels better, is alert and in no distress. The patients results and examination findings were discussed with the patient. The repeat examination is unremarkable and benign. The history, exam, diagnostic testing, and current condition do not suggest any significant pathology to warrant further testing, continued ED treatment, admission, or surgical evaluation at this point. The vital signs have been stable. The patient does not have uncontrollable pain, intractable vomiting, or other significant symptoms. The patient's condition is stable and appropriate for discharge. The patient will pursue further outpatient evaluation with a primary care physician or other designated or consulting physician as indicated in the discharge instructions. The patient expressed understanding and was agreeable with this plan. Diagnosis Primary Impression: COPD (chronic obstructive pulmonary disease) Qualified Code: J43.9 - Pulmonary emphysema, unspecified emphysema type Additional Impression: Abdominal pain Qualified Code: R10.84 - Generalized abdominal pain Referrals: Lázaro Jacome MD 2 days Primary Care Physician Patient Instructions: Abdominal Pain (ED), COPD (Chronic Obstructive Pulmonary Disease) (ED), General Instructions Additional Instructions: Fill the prescriptions that were previously prescribed for prednisone and Zithromax Med/Other Pt SpecificInfo: Prescription(s) given Disposition: 01 DISCHARGE HOME Condition: Judi Medley MD November 21, 2016 01:31
[2016-11-21] MEDS ORDERED: SODIUM CHLOR 0.9% 1000 ML INJ 1,000 ML IV ONE (01:45)
[2016-11-21] MEDS ORDERED: ONDANSETRON HCL 4 MG/2 ML VIAL IV ONE (01:45)
[2016-11-21 01:50] VITALS: O2SAT 98
[2016-11-21 01:55] LABS: AUTOMATED NEUTROPHIL # 12.7 TH/MM3 (1.8-7.7); BASOPHIL # 0.1 TH/MM3 (0-0.2); BASOPHIL % 0.4 % (0.0-2.0); EOSINOPHIL % 0.2 % (0.0-4.0); HEMO FLAGS DIFF FINAL; LYMPH % 18.2 % (9.0-44.0); LYMPHOCYTE # 3.1 TH/MM3 (1.0-4.8); MEAN CELL VOLUME 62.6 FL (80.0-100.0); MEAN CORPUSCULAR HEMOGLOBIN 19.5 PG (27.0-34.0); MEAN CORPUSCULAR HGB CONC 31.2 % (32.0-36.0); MONO % 6.5 % (0.0-8.0); NEUT % 74.7 % (16.0-70.0); PLATELET COUNT 365 TH/MM3 (150-450); RED BLOOD COUNT 5.43 MIL/MM3 (4.00-5.30); RED CELL DISTRIBUTION WIDTH 14.8 % (11.6-17.2)
[2016-11-21 02:30] LABS: ALKALINE PHOSPHATASE 55 U/L (45-117); ALT (GPT) 22 U/L (10-53); ANION GAP 4 MEQ/L (5-15); AST (GOT) 23 U/L (15-37); BICARBONATE 36.8 MEQ/L (21.0-32.0); BLOOD UREA NITROGEN 6 MG/DL (7-18); CHLORIDE 101 MEQ/L (98-107); GLOMERULAR FILTRATION RATE 113 ML/MIN (>89); POTASSIUM 4.3 MEQ/L (3.5-5.1); SODIUM (NA) 142 MEQ/L (136-145); TOTAL BILIRUBIN ADULT 1.5 MG/DL (0.2-1.0)
[2016-11-21 02:31] LABS: CREATINE KINASE 95 U/L (26-192)
[2016-11-21] MEDS ORDERED: ACETAMINOPHEN/HYDROcodone 325 MG/5 MG TAB PO ONE (02:45)
[2016-11-21] MEDS ORDERED: SODIUM CHLORID 0.9% 500 ML INJ 500 ML IV ONE (02:45)
--- NOTE | 2016-11-21 08:26 | RADRPT ---
EXAM DATE/TIME: 11/21/2016 03:40 [facility] COMPARISON: CHEST SINGLE AP, November 21, 2016, 1:39. CT ABDOMEN & PELVIS W CONTRAST, November 19, 2016, 20:39. INDICATIONS : Abdominal distention. MEDICAL HISTORY : Hypertension. Chrons. SURGICAL HISTORY : Appendectomy. Cholecystectomy.Hysterectomy.Colon resection ENCOUNTER: Initial ACUITY: 1 day PAIN SCORE: 1/10 LOCATION: Bilateral abdomen FINDINGS: Supine and upright views of the abdomen were performed. The abdominal bowel gas pattern is normal. No air fluid levels are seen. No abnormal masses, calcifications, or organomegaly is seen. The visu alized lower lungs are clear. No evidence of free intraperitoneal gas. The osseous structures are u nremarkable. CONCLUSION: Nonspecific, benign abdomen appearance.. Jose Roberto Lowe MD on November 21, 2016 at 4:16 Board Certified Radiologist. This report was verified electronically.
--- NOTE | 2016-11-21 08:26 | RADRPT ---
EXAM DATE/TIME: 11/21/2016 01:39 [facility] COMPARISON: CT ABDOMEN & PELVIS W CONTRAST, November 19, 2016, 20:39. CHEST SINGLE AP, November 19, 2016, 10:13. INDICATIONS : Shortness of breath. MEDICAL HISTORY : None. SURGICAL HISTORY : None. ENCOUNTER: Initial ACUITY: 1 day PAIN SCORE: 0/10 LOCATION: Bilateral chest FINDINGS: There is mild subsegmental atelectasis in the right lung base. No evidence of effusion. Cardiac conto urs are satisfactory. CONCLUSION: Slight atelectasis in the right lung base Jose Roberto Lowe MD on November 21, 2016 at 1:53 Board Certified Radiologist. This report was verified electronically.
--- NOTE | 2016-11-21 08:54 | EKG ---
Date Performed: 11/21/2016 Time Performed: 00:53:20 PTAGE: 51 years EKG: Sinus rhythm MODERATE INTRAVENTRICULAR CONDUCTION DELAY BORDERLINE ECG PREVIOUS TRACING : 11/19/2016 09.15 DOCTOR: Thierno Greer Interpretating Date/Time 11/21/2016 08:53:09
[2016-11-21] MEDS ORDERED: ZOFR4TAB PO (17:13)
[2016-11-21] MEDS ORDERED: BENZ100 PO (17:13)
[2016-11-21] MEDS ORDERED: DILA8TAB4 PO (17:13)
[2016-11-21] MEDS ORDERED: HYDR-3535 PO (17:13)
== END 2016-11-21 05:45 | disposition home or self-care (01) ==
LOC: NEPE 00:39
DX: J44.9 Chronic obstructive pulmonary disease, unspecified (principal); J45.909 Unspecified asthma, uncomplicated; R10.84 Generalized abdominal pain; G89.29 Other chronic pain; F17.200 Nicotine dependence, unspecified, uncomplicated; I10 Essential (primary) hypertension; I50.9 Heart failure, unspecified; I25.10 Atherosclerotic heart disease of native coronary artery without angina pectoris; K50.90 Crohn's disease, unspecified, without complications; K21.9 Gastro-esophageal reflux disease without esophagitis; Z79.52 Long term (current) use of systemic steroids; Z85.038 Personal history of other malignant neoplasm of large intestine
CPT/HCPCS: 71010; 74020; 80053; 82550; 83690; 83880; 84484; 85025; 85652; 93005; 94640; 94664; 96361; 96374; 96375; 99285; J2405; J2930; J7030; J7040

== ENCOUNTER 2016-11-21 16:57 | Emergency (ER) | payer SELFPAY ==
[2016-11-21 16:59] VITALS: BP 125/67; PULSE 106; RESP 20; TEMP 97.8; O2SAT 95
[2016-11-21] MEDS ORDERED: SODIUM CHLOR 0.9% 1000 ML INJ 1,000 ML IV SCH (17:09)
[2016-11-21] MEDS ORDERED: DILA8TAB4 PO (17:13)
[2016-11-21] MEDS ORDERED: BENZ100 PO (17:13)
[2016-11-21] MEDS ORDERED: HYDR-3535 PO (17:13)
[2016-11-21] MEDS ORDERED: ZOFR4TAB PO (17:13)
[2016-11-21 17:14] VITALS: RESP 20; O2SAT 95
--- NOTE | 2016-11-21 17:14 | PD ---
HPI Chief Complaint: Respiratory Symptoms Time Seen by Provider: 17:06 Travel History International Travel<30 days: No Contact w/Intl Traveler<30days: No Traveled to known affect area: No History of Present Illness HPI 51-year-old female with history of Crohn's disease status post partial colectomy , COPD, brought in by ambulance for evaluation of shortness of breath and abdominal pain. EMS reports that she had diminished breath sounds in all lung [place] and administered 3 albuterol treatments and IV Solu-Medrol. Upon entering the room the patient was sleeping comfortably. She is complaining of diffuse abdominal pain which has been ongoing for months. She reports that her breathing is somewhat improved, however she is complaining of generalized malaise. She was admitted to the hospital 2 days ago for similar symptoms, had CT abdomen pelvis at that time which showed hepatomegaly, mild degenerative changes and scoliosis of the thoracolumbar spine, minimal scattered bibasilar atelectasis and/or scarring. She was discharged yesterday, then seen again in the emergency department this morning for again similar symptoms. She was treated in the emergency department and discharged home with instructions follow -up with a GI doctor. The patient reports that she does not have a local GI physician. PFSH Past Medical History Hx Anticoagulant Therapy: No Arthritis: Yes Asthma: Yes Anxiety: Yes Heart Rhythm Problems: No Cancer: Yes (HX OF COLON CANCER) Cardiovascular Problems: Yes (HTN) High Cholesterol: No Chemotherapy: No Chest Pain: Yes Congestive Heart Failure: Yes COPD: Yes Coronary Artery Disease: Yes Diabetes: No Diminished Hearing: No Endocrine: No Gastrointestinal Disorders: Yes (CROHN'S DISEASE) GERD: Yes Genitourinary: No Headaches: Yes Hepatitis: No Hiatal Hernia: No Hypertension: Yes Immune Disorder: No Inguinal Hernia: No Implanted Vascular Access Dvce: No Kidney Stones: No Musculoskeletal: Yes (spasms nerve damage) Neurologic: Yes Psychiatric: Yes Reproductive: Yes Respiratory: Yes Migraines: Yes Myocardial Infarction: No Radiation Therapy: No Renal Failure: No Seizures: Yes Sleep Apnea: No Ulcer: No Tetanus Vaccination: Unknown Influenza Vaccination: No ?: Not Menopausal: Yes : 3 Para: 3 Miscarriage: 0 : 0 Past Surgical History Abdominal Surgery: Yes (COLON RESECTION) Appendectomy: Yes Cardiac Surgery: No Section: Yes Cholecystectomy: Yes Ear Surgery: No Endocrine Surgery: No Eye Surgery: No Genitourinary Surgery: No Gynecologic Surgery: Yes (hysterectomy) Hysterectomy: Yes Neurologic Surgery: No Oral Surgery: No Pacemaker: No Thoracic Surgery: No Other Surgery: Yes (hysterectomy ) Social History Alcohol Use: Yes (OCASSIONALLY) Tobacco Use: Yes (1 PPD) Substance Use: Yes (ETOH) Allergies-Medications (Allergen,Severity, Reaction): Coded Allergies: No Known Allergies (Unverified , 11/21/16) Reported Meds & Prescriptions Reported Meds & Active Scripts Active Reported Zofran (Ondansetron HCl) 4 Mg Tab 4 Mg PO Q12HR PRN Tessalon Perles (Benzonatate) 100 Mg Cap 100 Mg PO TID PRN Lortab (Hydrocodone-Acetaminophen) 10-325 Mg Tab 1 Tab PO Q4H PRN Dilaudid (Hydromorphone HCl) 8 Mg Tab 8 Mg PO Q6H PRN Atrovent HFA 12.9 GM Inh (Ipratropium [place]) 17 Mcg/Act Aer 2 Puff INH Q6HR PRN Proventil Hfa 6.7 GM Inh (Albuterol Sulfate) 90 Mcg/Act Aer 2 Puff INH Q4-6H PRN Ventolin Hfa 18 GM Inh (Albuterol Sulfate) 90 Mcg/Act Aer 2 Puff INH Q4-6H PRN Xanax (Alprazolam) 0.5 Mg Tab 0.5 Mg PO BID PRN Review of Systems Except as stated in HPI: all other systems reviewed are Neg Physical Exam Narrative GENERAL: Well-developed, thin, sleeping comfortably, no acute distress. SKIN: Focused skin assessment warm/dry. No rash. HEAD: Atraumatic. Normocephalic. EYES: Pupils equal and round. No scleral icterus. No injection or drainage. ENT: No nasal bleeding or discharge. Mucous membranes pink and moist. NECK: Trachea midline. No JVD. CARDIOVASCULAR: Regular rate and rhythm. No murmur appreciated. RESPIRATORY: No accessory muscle use. Clear to auscultation. Breath sounds equal bilaterally. GASTROINTESTINAL: Abdomen soft, non-tender, nondistended. No hernias. No peritoneal signs. Normal bowel sounds. MUSCULOSKELETAL: No obvious deformities. No clubbing. No cyanosis. No edema. NEUROLOGICAL: Awake and alert. No obvious cranial nerve deficits. Motor grossly within normal limits. Normal speech. PSYCHIATRIC: Appropriate mood and affect; insight and judgment normal. Data Data Last Documented VS Vital Signs Date Time Temp Pulse Resp B/P Pulse Ox O2 Delivery O2 Flow Rate FiO2 11/21/16 17:14 20 95 Room Air 11/21/16 17:13 105 11/21/16 16:59 97.8 125/67 Orders Complete Blood Count With Diff (11/21/16 17:09) Comprehensive Metabolic Panel (11/21/16 17:09) Lipase (11/21/16 17:09) Prothrombin Time / Inr (Pt) (11/21/16 17:09) Act Partial Throm Time (Ptt) (11/21/16 17:09) Urinalysis - C+S If Indicated (11/21/16 17:09) Iv Access Insert/Monitor (11/21/16 17:09) Ecg Monitoring (11/21/16 17:09) Oximetry (11/21/16 17:09) Ondansetron Inj (Zofran Inj) (11/21/16 17:15) Sodium Chlor 0.9% 1000 Ml Inj (Ns 1000 M (11/21/16 17:09) Sodium Chloride 0.9% Flush (Ns Flush) (11/21/16 17:15) Chest, Single Ap (11/21/16 ) Calcium Gluconate (Calcium Gluconate) (11/21/16 19:30) Labs Laboratory Tests Test 11/21/16 11/21/16 18:18 18:25 White Blood Count 10.1 TH/MM3 Red Blood Count 5.02 MIL/MM3 Hemoglobin 10.1 GM/DL Hematocrit 32.2 % Mean Corpuscular Volume 64.2 FL Mean Corpuscular Hemoglobin 20.0 PG Mean Corpuscular Hemoglobin 31.2 % Concent Red Cell Distribution Width 14.5 % Platelet Count 297 TH/MM3 Mean Platelet Volume 8.8 FL Neutrophils (%) (Auto) 82.1 % Lymphocytes (%) (Auto) 10.8 % Monocytes (%) (Auto) 5.3 % Eosinophils (%) (Auto) 0.1 % Basophils (%) (Auto) 1.7 % Neutrophils # (Auto) 8.3 TH/MM3 Lymphocytes # (Auto) 1.1 TH/MM3 Monocytes # (Auto) 0.5 TH/MM3 Eosinophils # (Auto) 0.0 TH/MM3 Basophils # (Auto) 0.2 TH/MM3 CBC Comment AUTO DIFF Prothrombin Time 10.5 SEC Prothromb Time International 1.0 RATIO Ratio Activated Partial 24.9 SEC Thromboplast Time Sodium Level 144 MEQ/L Potassium Level 3.4 MEQ/L Chloride Level 106 MEQ/L Carbon Dioxide Level 29.5 MEQ/L Anion Gap 9 MEQ/L Blood Urea Nitrogen 7 MG/DL Creatinine 0.61 MG/DL Estimat Glomerular Filtration 104 ML/MIN Rate Random Glucose 97 MG/DL Calcium Level 7.7 MG/DL Total Bilirubin 1.3 MG/DL Aspartate Amino Transf 18 U/L (AST/SGOT) Alanine Aminotransferase 19 U/L (ALT/SGPT) Alkaline Phosphatase 54 U/L Total Protein 5.8 GM/DL Albumin 3.2 GM/DL Lipase 164 U/L Urine Color YELLOW Urine Turbidity CLEAR Urine pH 7.0 Urine Specific [place] 1.016 Urine Protein NEG mg/dL Urine Glucose (UA) NEG mg/dL Urine Ketones NEG mg/dL Urine Occult Blood NEG Urine Nitrite NEG Urine Bilirubin NEG Urine Leukocyte Esterase NEG Urine WBC 0-2 /hpf Urine Squamous Epithelial 0-5 /hpf Cells Microscopic Urinalysis Comment CULT NOT INDICATED MDM Medical Decision Making Medical Screen Exam Complete: Yes Emergency Medical Condition: Yes Medical Record Reviewed: Yes Differential Diagnosis COPD exacerbation, Crohn's exacerbation, metabolic abnormality, malingering, drug-seeking behavior Narrative Course Vital signs reviewed. CBC shows WBC 10.1, hemoglobin 10.1, hematocrit 32.2, platelets 297. Her hemoglobin is around her baseline. CMP is remarkable for calcium 7.7 which was replaced orally, otherwise unremarkable. Lipase is 164. UA is not suggestive of UTI. Chest x-ray shows linear right basilar atelectasis/scarring, unchanged, no new infiltrate. Shortly after the patient arrived to the emergency department, and when I walked into the room she was sleeping comfortably. Her abdominal exam is benign. There are no peritoneal signs. No distention. No masses. She had a CT abdomen pelvis 2 days ago which was essentially unremarkable. I do not believe she has an acute surgical process at this time to warrant imaging. Her respiratory status is significantly improved, and on reassessment she again is sleeping comfortably, easily arousable. She was made aware of all findings and states she is ready to go home. I believe she is stable for discharge home with outpatient follow-up with a primary care physician as well as signing teacher this week. Return to the emergency department. She verbalizes understanding and agreement with plan. Diagnosis Primary Impression: COPD exacerbation Additional Impression: Chronic abdominal pain Referrals: Lázaro Jacome MD 3 days [employer] Techn[employer] [facility] 1 day Primary Care Physician 3 days Additional Instructions: Follow-up with a primary care physician this week. Follow-up with signing teacher Dr. Jacome this week. Return to the emergency department for worsening symptoms or any other concerns. Disposition: 01 DISCHARGE HOME Condition: Stable Ruperto Diana MD November 21, 2016 17:14
[2016-11-21] MEDS ORDERED: SODIUM CHLORIDE 0.9% FLUSH 10 ML FLUSH IV FLUSH PRN (17:15)
[2016-11-21] MEDS ORDERED: ONDANSETRON HCL 4 MG/2 ML VIAL IVP ONE (17:15)
[2016-11-21 18:30] LABS: BLOOD, URINE NEG (NEG); GLUCOSE,URINE NEG (NEG); KETONE, URINE NEG (NEG); NITRITE,URINE NEG (NEG)
[2016-11-21 18:31] LABS: AUTOMATED NEUTROPHIL # 8.3 TH/MM3 (1.8-7.7); BASOPHIL # 0.2 TH/MM3 (0-0.2); BASOPHIL % 1.7 % (0.0-2.0); EOSINOPHIL % 0.1 % (0.0-4.0); HEMATOCRIT 32.2 % (35.0-46.0); LYMPH % 10.8 % (9.0-44.0); LYMPHOCYTE # 1.1 TH/MM3 (1.0-4.8); MEAN CELL VOLUME 64.2 FL (80.0-100.0); MEAN CORPUSCULAR HGB CONC 31.2 % (32.0-36.0); MONO % 5.3 % (0.0-8.0); NEUT % 82.1 % (16.0-70.0); PLATELET COUNT 297 TH/MM3 (150-450); RED BLOOD COUNT 5.02 MIL/MM3 (4.00-5.30); RED CELL DISTRIBUTION WIDTH 14.5 % (11.6-17.2); WHITE BLOOD COUNT 10.1 TH/MM3 (4.0-11.0)
[2016-11-21 18:40] LABS: URINE COLOR YELLOW (YELLW/STRAW)
[2016-11-21 18:41] LABS: COMMENT (UR) CULT NOT INDICATED; CULTURE IF INDICATED CULT NOT INDICATED; SQUAMOUS EPITHELIAL CELL URINE 0-5 /hpf (0-5); WBC, URINE 0-2 /hpf (0-5)
[2016-11-21 18:46] LABS: CHLORIDE 106 MEQ/L (98-107); POTASSIUM 3.4 MEQ/L (3.5-5.1); SODIUM (NA) 144 MEQ/L (136-145)
[2016-11-21 18:50] LABS: ANION GAP 9 MEQ/L (5-15); BICARBONATE 29.5 MEQ/L (21.0-32.0); BLOOD UREA NITROGEN 7 MG/DL (7-18)
[2016-11-21 18:52] LABS: APTT (PATIENT) 24.9 SEC (24.3-30.1); PROTHROMBIN TIME - PATIENT 10.5 SEC (9.8-11.6)
[2016-11-21 18:53] LABS: ALT (GPT) 19 U/L (10-53); AST (GOT) 18 U/L (15-37); GLOMERULAR FILTRATION RATE 104 ML/MIN (>89)
[2016-11-21 18:55] LABS: TOTAL BILIRUBIN ADULT 1.3 MG/DL (0.2-1.0)
[2016-11-21 18:56] LABS: ALKALINE PHOSPHATASE 54 U/L (45-117)
--- NOTE | 2016-11-21 18:57 | RADHPO ---
EXAM DATE/TIME: 11/21/2016 17:25 [facility] COMPARISON: CHEST SINGLE AP, November 21, 2016, 1:39. INDICATIONS : Shortness of breath for 3 days MEDICAL HISTORY : None. SURGICAL HISTORY : None. ENCOUNTER: Initial ACUITY: 3 days PAIN SCORE: 0/10 LOCATION: Bilateral chest FINDINGS: A single view of the chest demonstrates right basilar atelectasis/scarring, unchanged. Lungs otherwis e clear. Heart size is normal. Osseous structures are intact with a slight dextroscoliosis of the tho racolumbar spine. CONCLUSION: 1. Linear right basilar atelectasis/scarring, unchanged. 2. No new infiltrate Asad Rebolledo MD on November 21, 2016 at 18:49 Board Certified Radiologist. This report was verified electronically.
[2016-11-21 19:02] LABS: HEMO FLAGS AUTO DIFF
[2016-11-21 19:25] VITALS: BP 132/72; PULSE 93; RESP 20; O2SAT 95
[2016-11-21 19:27] LABS: METAMYELOCYTES 1 % (0-1); NEUTROPHIL # MANUAL DIFF 9.2 TH/MM3 (1.8-7.7); OVALOCYTES 1+ (NORMAL); POLYS (SEG NEUTROPHILS) 90 % (16-70); TEARDROP RBCS 1+ (NORMAL); WBC DIFF SAMPLE 100
[2016-11-21 19:29] LABS: TARGET CELLS 1+ (NORMAL)
[2016-11-21 19:30] LABS: PLATELET ESTIMATE SMEAR NORMAL (NORMAL); PLATELET MORPHOLOGY ENLARGED (NORMAL); SCAN/DIFF FINAL DIFF MANUAL
[2016-11-21] MEDS ORDERED: CALCIUM GLUCONATE 500 MG TAB PO ONE (19:30)
== END 2016-11-21 19:53 | disposition home or self-care (01) ==
LOC: PHED 16:57
DX: J44.1 Chronic obstructive pulmonary disease with (acute) exacerbation (principal); R10.9 Unspecified abdominal pain; G89.29 Other chronic pain; K50.90 Crohn's disease, unspecified, without complications; J44.9 Chronic obstructive pulmonary disease, unspecified; R16.0 Hepatomegaly, not elsewhere classified; M41.9 Scoliosis, unspecified; I50.9 Heart failure, unspecified; I10 Essential (primary) hypertension
CPT/HCPCS: 71010; 80053; 81001; 83690; 85007; 85027; 85610; 85730; 96361; 96374; 99284; J2405; J7030

== ENCOUNTER 2016-11-25 12:53 | Emergency (ER) | payer SELFPAY ==
[~2016-11-25] VITALS: Ht 157.5 cm; Wt 50.0 kg
[~2016-11-25 12:53] MED LIST changes: -AZIT250T3 PO; +BENZ100 PO; +DILA8TAB4 PO; +HYDR-3535 PO; -PRED50 PO; +ZOFR4TAB PO
[2016-11-25 12:56] VITALS: BP 176/100; PULSE 84; RESP 24; TEMP 98.8; O2SAT 96
--- NOTE | 2016-11-25 13:34 | PD ---
Physical Exam Date Seen by Provider: Nov 25, 2016 Time Seen by Provider: 13:00 Narrative 51 y/o female with history Crohns presents with c/o worsening nausea/vomiting/ and abdominal pain. Patient denies fever. Symptoms started yesterday. Patients VS stable. Awaiting Bed Placement. Data Data Last Documented VS Vital Signs Date Time Temp Pulse Resp B/P Pulse Ox O2 Delivery O2 Flow Rate FiO2 11/25/16 12:56 98.8 84 24 176/100 96 Room Air [facility] Medical Record Reviewed: Yes Supervised Visit with ADRIAN: Yes Disposition: 07 AGAINST MEDICAL ADVICE Condition: Stable Stephan Akhtar Nov 25, 2016 13:34
[2016-11-26] MEDS ORDERED: ULTR50TA5 PO (13:18)
[2016-11-26] MEDS ORDERED: METR-1 PO (13:18)
[2016-11-26] MEDS ORDERED: CIPR-9 PO (13:18)
[2016-11-26] MEDS ORDERED: MEDR4PAK PO (13:22)
== END 2016-11-25 14:23 | disposition left against medical advice (07) ==
LOC: NED 12:53
DX: R11.2 Nausea with vomiting, unspecified (principal); Z53.21 Procedure and treatment not carried out due to patient leaving prior to being seen by health care provider
CPT/HCPCS: 99281

== ENCOUNTER 2016-11-26 10:14 | Emergency (ER) | payer SELFPAY ==
[~2016-11-26] VITALS: Ht 160 cm; Wt 46.0 kg
[2016-11-26] MEDS: SODIUM CHLOR 0.9% 1000 ML INJ 1,000 ML IV SCH ×2 (10:23→11:41)
[2016-11-26 10:28] VITALS: BP 134/94; PULSE 106; RESP 18; TEMP 98.5; O2SAT 98; O2SAT 99
[2016-11-26] MEDS ORDERED: HYDROmorphone HCL PF 1 MG/ML VIAL IVS ONE (10:30)
[2016-11-26] MEDS ORDERED: SODIUM CHLORIDE 0.9% FLUSH 10 ML FLUSH IV FLUSH PRN (10:30)
[2016-11-26 11:10] LABS: AUTOMATED NEUTROPHIL # 18.7 TH/MM3 (1.8-7.7); BASOPHIL # 0.1 TH/MM3 (0-0.2); BASOPHIL % 0.4 % (0.0-2.0); EOSINOPHIL # 0.1 TH/MM3 (0-0.4); EOSINOPHIL % 0.2 % (0.0-4.0); HEMATOCRIT 43.9 % (35.0-46.0); LYMPH % 11.4 % (9.0-44.0); LYMPHOCYTE # 2.7 TH/MM3 (1.0-4.8); MEAN CORPUSCULAR HEMOGLOBIN 19.9 PG (27.0-34.0); MEAN CORPUSCULAR HGB CONC 32.1 % (32.0-36.0); MONO % 8.9 % (0.0-8.0); NEUT % 79.1 % (16.0-70.0); PLATELET COUNT 477 TH/MM3 (150-450); RED BLOOD COUNT 7.07 MIL/MM3 (4.00-5.30); RED CELL DISTRIBUTION WIDTH 16.5 % (11.6-17.2); WHITE BLOOD COUNT 23.6 TH/MM3 (4.0-11.0)
[2016-11-26 11:12] LABS: HEMO FLAGS AUTO DIFF
[2016-11-26 11:29] LABS: ALT (GPT) 25 U/L (10-53); ANION GAP 5 MEQ/L (5-15); AST (GOT) 27 U/L (15-37); BICARBONATE 31.9 MEQ/L (21.0-32.0); BLOOD UREA NITROGEN 16 MG/DL (7-18); CHLORIDE 95 MEQ/L (98-107); GLOMERULAR FILTRATION RATE 97 ML/MIN (>89); POTASSIUM 3.6 MEQ/L (3.5-5.1); SODIUM (NA) 132 MEQ/L (136-145)
[2016-11-26] MEDS ORDERED: PIPERACIL-TAZO 3.375 GM PREMIX 50 ML IV ONE (11:30)
[2016-11-26] MEDS ORDERED: methylPREDNISolone SOD SUCC 125 MG/2 ML VIAL IV PUSH ONE (11:30)
[2016-11-26] MEDS ORDERED: metroNIDAZOLE 500 MG INJ 100 ML IV ONE (11:30)
[2016-11-26 11:32] LABS: ALKALINE PHOSPHATASE 78 U/L (45-117); TOTAL BILIRUBIN ADULT 3.8 MG/DL (0.2-1.0)
[2016-11-26] MEDS ORDERED: ONDANSETRON HCL 4 MG/2 ML VIAL IV PUSH ONE (11:45)
[2016-11-26 11:46] LABS: BANDS 8 % (0-6); CORRECTED NUCLEATED RBC 1 /100 WBC (0-0); EOSINOPHILS 1 % (0-4); METAMYELOCYTES 1 % (0-1); NEUTROPHIL # MANUAL DIFF 17.7 TH/MM3 (1.8-7.7); PLATELET ESTIMATE SMEAR HIGH (NORMAL); PLATELET MORPHOLOGY NORMAL (NORMAL); POLYS (SEG NEUTROPHILS) 66 % (16-70); SCAN/DIFF FINAL DIFF MANUAL; WBC DIFF SAMPLE 100
[2016-11-26 11:47] LABS: OVALOCYTES 1+ (NORMAL); TARGET CELLS 1+ (NORMAL)
[2016-11-26 12:11] LABS: BACTERIA, URINE OCC /hpf; BLOOD, URINE NEG (NEG); COMMENT (UR) CULT NOT INDICATED; CULTURE IF INDICATED CULT NOT INDICATED; GLUCOSE,URINE NEG (NEG); KETONE, URINE 10 mg/dL (NEG); MUCUS URINE FEW /lpf (OCC); NITRITE,URINE NEG (NEG); PH, URINE 7.5 (5.0-8.5); SQUAMOUS EPITHELIAL CELL URINE 1 /hpf (0-5); URINE COLOR YELLOW (YELLW/STRAW)
--- NOTE | 2016-11-26 13:08 | RADRPT ---
EXAM DATE/TIME: 11/26/2016 11:35 [facility] COMPARISON: CT ABDOMEN & PELVIS W/O CONTRAST, November 08, 2014, 5:34. INDICATIONS : Abdominal pain, Crohn's disease ORAL CONTRAST: No oral contrast ingested. RADIATION DOSE: 4.47 CTDIvol (mGy) MEDICAL HISTORY : Cardiovascular disease. Hypertension. Carcinoma, colon. Crohn's disease SURGICAL HISTORY : Appendectomy. Hysterectomy. Cholecystectomy. ENCOUNTER: Initial ACUITY: 3 days PAIN SCALE: 5/10 LOCATION: Diffuse abdomen TECHNIQUE: Volumetric scanning of the abdomen and pelvis was performed. Using automated exposure control and ad justment of the mA and/or kV according to patient size, radiation dose was kept as low as reasonably achievable to obtain optimal diagnostic quality images. FINDINGS: Lung bases are clear. The liver is free of focal defects, spleen, pancreas, adrenals and kidneys are unremarkable. Moderate vascular calcification is evident. There is no ascites or adenopathy. There is no evidence for free air. Review of bone windows reveals only degenerative changes. CONCLUSION: 1. There is no evidence for free air. 2. Lack of oral/intravenous contrast makes detection of Crohn's disease very difficult. If there is clinical concern of active disease oral/intravenous contrast is suggested. 3. There is no evidence of abscess or free air. Reed Duque MD FACR on November 26, 2016 at 12:15 Board Certified Radiologist. This report was verified electronically.
[2016-11-26] MEDS ORDERED: ULTR50TA5 PO (13:18)
[2016-11-26] MEDS ORDERED: METR-1 PO (13:18)
[2016-11-26] MEDS ORDERED: CIPR-9 PO (13:18)
--- NOTE | 2016-11-26 13:18 | PD ---
HPI Chief Complaint: GI Complaint Time Seen by Provider: 10:23 Travel History International Travel<30 days: No Contact w/Intl Traveler<30days: No Traveled to known affect area: No History of Present Illness HPI HAS H/O CHRON'S HAS HAD THIS FLARE FOR PAST 3 DAYS, DIARRHEA AND ABDOMINAL CRAMPY PAIN...NEG FEVER PFSH Past Medical History Hx Anticoagulant Therapy: No Arthritis: Yes Asthma: Yes Anxiety: Yes Heart Rhythm Problems: No Cancer: Yes (HX OF COLON CANCER) Cardiovascular Problems: Yes (HTN) High Cholesterol: No Chemotherapy: No Chest Pain: Yes Congestive Heart Failure: Yes COPD: Yes Coronary Artery Disease: Yes Diabetes: No Diminished Hearing: No Endocrine: No Gastrointestinal Disorders: Yes (CROHN'S DISEASE) GERD: Yes Genitourinary: No Headaches: Yes Hepatitis: No Hiatal Hernia: No Hypertension: Yes Immune Disorder: No Inguinal Hernia: No Implanted Vascular Access Dvce: No Kidney Stones: No Musculoskeletal: Yes (spasms nerve damage) Neurologic: Yes Psychiatric: Yes Reproductive: Yes Respiratory: Yes Migraines: Yes Myocardial Infarction: No Radiation Therapy: No Renal Failure: No Seizures: Yes Sleep Apnea: No Ulcer: No ?: Not Menopausal: Yes : 3 Para: 3 Miscarriage: 0 : 0 Past Surgical History Abdominal Surgery: Yes (COLON RESECTION) Appendectomy: Yes Cardiac Surgery: No Section: Yes Cholecystectomy: Yes Ear Surgery: No Endocrine Surgery: No Eye Surgery: No Genitourinary Surgery: No Gynecologic Surgery: Yes (hysterectomy) Hysterectomy: Yes (1999) Neurologic Surgery: No Oral Surgery: No Pacemaker: No Thoracic Surgery: No Other Surgery: Yes (hysterectomy ) Social History Alcohol Use: Yes (OCASSIONALLY) Tobacco Use: Yes (1 PPD) Substance Use: Yes (ETOH) Allergies-Medications (Allergen,Severity, Reaction): Coded Allergies: No Known Allergies (Unverified , 11/21/16) Reported Meds & Prescriptions Reported Meds & Active Scripts Active Reported Zofran (Ondansetron HCl) 4 Mg Tab 4 Mg PO Q12HR PRN Tessalon Perles (Benzonatate) 100 Mg Cap 100 Mg PO TID PRN Lortab (Hydrocodone-Acetaminophen) 10-325 Mg Tab 1 Tab PO Q4H PRN Dilaudid (Hydromorphone HCl) 8 Mg Tab 8 Mg PO Q6H PRN Atrovent HFA 12.9 GM Inh (Ipratropium [place]) 17 Mcg/Act Aer 2 Puff INH Q6HR PRN Proventil Hfa 6.7 GM Inh (Albuterol Sulfate) 90 Mcg/Act Aer 2 Puff INH Q4-6H PRN Ventolin Hfa 18 GM Inh (Albuterol Sulfate) 90 Mcg/Act Aer 2 Puff INH Q4-6H PRN Xanax (Alprazolam) 0.5 Mg Tab 0.5 Mg PO BID PRN Review of Systems Except as stated in HPI: all other systems reviewed are Neg Gastrointestinal: Positive: Diarrhea, Abdominal Pain Physical Exam Narrative GENERAL: SKIN: Warm and dry. HEAD: Atraumatic. Normocephalic. EYES: Pupils equal and round. No scleral icterus. No injection or drainage. ENT: No nasal bleeding or discharge. Mucous membranes pink and moist. NECK: Trachea midline. No JVD. CARDIOVASCULAR: Regular rate and rhythm. RESPIRATORY: No accessory muscle use. Clear to auscultation. Breath sounds equal bilaterally. GASTROINTESTINAL: NABS, MILDLY DIFFUSELY TTP, NO REBOUND OR GUARDING OR RIGIDITY. MUSCULOSKELETAL: Extremities without clubbing, cyanosis, or edema. No obvious deformities. NEUROLOGICAL: Awake and alert. No obvious cranial nerve deficits. Motor grossly within normal limits. Five out of 5 muscle strength in the arms and legs. Normal speech. PSYCHIATRIC: Appropriate mood and affect; insight and judgment normal. Data Data Last Documented VS Vital Signs Date Time Temp Pulse Resp B/P Pulse Ox O2 Delivery O2 Flow Rate FiO2 11/26/16 10:28 18 99 Room Air 11/26/16 10:28 98.5 106 134/94 Orders Complete Blood Count With Diff (11/26/16 10:23) Comprehensive Metabolic Panel (11/26/16 10:23) Lipase (11/26/16 10:23) Urinalysis - C+S If Indicated (11/26/16 10:23) Ct Abd/Pel W/O Iv Contrast (11/26/16 10:23) Iv Access Insert/Monitor (11/26/16 10:23) Ecg Monitoring (11/26/16 10:23) Oximetry (11/26/16 10:23) NPO (11/26/16 10:23) Sodium Chlor 0.9% 1000 Ml Inj (Ns 1000 M (11/26/16 10:23) Sodium Chloride 0.9% Flush (Ns Flush) (11/26/16 10:30) Hydromorphone Pf Inj (Dilaudid Pf Inj) (11/26/16 10:30) Piperacil-Tazo 3.375 Gm Premix (Zosyn 3. (11/26/16 11:30) Metronidazole 500 Mg Inj (Flagyl 500 Mg (11/26/16 11:30) Methylprednisolone So Succ Inj (Solumedr (11/26/16 11:30) Ondansetron Inj (Zofran Inj) (11/26/16 11:45) Labs Laboratory Tests Test 11/26/16 11/26/16 10:47 11:25 White Blood Count 23.6 TH/MM3 Red Blood Count 7.07 MIL/MM3 Hemoglobin 14.1 GM/DL Hematocrit 43.9 % Mean Corpuscular Volume 62.0 FL Mean Corpuscular Hemoglobin 19.9 PG Mean Corpuscular Hemoglobin 32.1 % Concent Red Cell Distribution Width 16.5 % Platelet Count 477 TH/MM3 Mean Platelet Volume 10.1 FL Neutrophils (%) (Auto) 79.1 % Lymphocytes (%) (Auto) 11.4 % Monocytes (%) (Auto) 8.9 % Eosinophils (%) (Auto) 0.2 % Basophils (%) (Auto) 0.4 % Neutrophils # (Auto) 18.7 TH/MM3 Lymphocytes # (Auto) 2.7 TH/MM3 Monocytes # (Auto) 2.1 TH/MM3 Eosinophils # (Auto) 0.1 TH/MM3 Basophils # (Auto) 0.1 TH/MM3 CBC Comment AUTO DIFF Differential Total Cells 100 Counted Neutrophils % (Manual) 66 % Band Neutrophils % 8 % Lymphocytes % 16 % Monocytes % 8 % Eosinophils % 1 % Neutrophils # (Manual) 17.7 TH/MM3 Metamyelocytes 1 % Nucleated Red Blood Cells 1 /100 WBC Differential Comment FINAL DIFF MANUAL Platelet Estimate HIGH Platelet Morphology Comment NORMAL Target Cells 1+ Ovalocytes 1+ Sodium Level 132 MEQ/L Potassium Level 3.6 MEQ/L Chloride Level 95 MEQ/L Carbon Dioxide Level 31.9 MEQ/L Anion Gap 5 MEQ/L Blood Urea Nitrogen 16 MG/DL Creatinine 0.65 MG/DL Estimat Glomerular Filtration 97 ML/MIN Rate Random Glucose 99 MG/DL Calcium Level 9.2 MG/DL Total Bilirubin 3.8 MG/DL Aspartate Amino Transf 27 U/L (AST/SGOT) Alanine Aminotransferase 25 U/L (ALT/SGPT) Alkaline Phosphatase 78 U/L Total Protein 7.4 GM/DL Albumin 4.3 GM/DL Lipase 103 U/L Urine Color YELLOW Urine Turbidity CLEAR Urine pH 7.5 Urine Specific [place] 1.017 Urine Protein 30 mg/dL Urine Glucose (UA) NEG mg/dL Urine Ketones 10 mg/dL Urine Occult Blood NEG Urine Nitrite NEG Urine Bilirubin NEG Urine Urobilinogen LESS THAN 2.0 MG/DL Urine Leukocyte Esterase NEG Urine RBC LESS THAN 1 /hpf Urine WBC 2 /hpf Urine Squamous Epithelial 1 /hpf Cells Urine Bacteria OCC /hpf Urine Mucus FEW /lpf Microscopic Urinalysis Comment CULT NOT INDICATED MDM Medical Decision Making Medical Screen Exam Complete: Yes Emergency Medical Condition: Yes Differential Diagnosis CHRON'S, R/O SBO, R/O PERF, R/O ABSCESS Narrative Course SEE ABOVE, IF ABSENT FOR THESE COMPLICATIONS WILL BE STABLE FOR DISCHARGE ( FLAGYL/LEVAQUIN/DILAUDID GIVEN ALREADY Diagnosis Primary Impression: Exacerbation of Crohn's disease Qualified Code: K50.90 - Exacerbation of Crohn's disease, without complications Scripts Tramadol (Ultram)50 Mg Tab50 Mg PO Q4H PRN (PAIN) #28 TAB Ref 0 Prov:Micheal Molina MD 11/26/16 Metronidazole (Flagyl)500 Mg Day252 Mg PO TID #30 TAB Ref 0 Prov:Micheal Molina MD 11/26/16 Ciprofloxacin (Cipro)500 Mg Cor272 Mg PO BID #20 TAB Ref 0 Prov:Micheal Molina MD 11/26/16 Disposition: 01 DISCHARGE HOME Condition: Stable Micheal Molina MD Nov 26, 2016 13:18
[2016-11-26] MEDS ORDERED: MEDR4PAK PO (13:22)
== END 2016-11-26 19:07 | disposition home or self-care (01) ==
LOC: NEPC 10:14
DX: K50.90 Crohn's disease, unspecified, without complications (principal); I10 Essential (primary) hypertension; I25.10 Atherosclerotic heart disease of native coronary artery without angina pectoris; I50.9 Heart failure, unspecified; J45.909 Unspecified asthma, uncomplicated; J44.9 Chronic obstructive pulmonary disease, unspecified; F17.200 Nicotine dependence, unspecified, uncomplicated; Z85.038 Personal history of other malignant neoplasm of large intestine
CPT/HCPCS: 74176; 80053; 81001; 83690; 85007; 85027; 96374; 96375; 99285; J1170; J2405; J2543; J2930; J7030

== ENCOUNTER 2017-07-29 02:34 | Emergency (ER) | payer SELFPAY ==
[~2017-07-29] VITALS: Ht 160 cm; Wt 48.0 kg
[~2017-07-29 02:34] MED LIST changes: +CIPR-9 PO; +MEDR4PAK PO; +METR-1 PO; +TRAM50 PO
[2017-07-29 02:38] VITALS: BP 138/65; PULSE 109; RESP 24; TEMP 98.4; O2SAT 95
[2017-07-29 02:46] VITALS: BP 143/95; PULSE 104; RESP 26; O2SAT 94; O2SAT 96
[2017-07-29] MEDS ORDERED: PERC5TAB12 PO (02:49)
--- NOTE | 2017-07-29 02:55 | PD ---
HPI Chief Complaint: Respiratory Symptoms Time Seen by Provider: 02:50 Travel History International Travel<30 days: No Contact w/Intl Traveler<30days: No Traveled to known affect area: No History of Present Illness HPI 52-year-old female with history of COPD, Crohn's disease, here for evaluation of shortness of breath and abdominal pain. Symptoms have been going on for 2 days. She describes a cough productive of yellowish sputum. No hemoptysis. No history of DVT or PE. No fevers or chills. Abdominal pain is diffuse, cramping, moderate. No melena or hematochezia. No vomiting. She continues to smoke about a pack of cigarettes per day. She denies alcohol use. No illicit drug use. PFSH Past Medical History Hx Anticoagulant Therapy: No Arthritis: Yes Asthma: Yes Anxiety: Yes Heart Rhythm Problems: No Cancer: Yes (HX OF COLON CANCER) Cardiovascular Problems: Yes (HTN) High Cholesterol: No Chemotherapy: No Chest Pain: Yes Congestive Heart Failure: Yes COPD: Yes Coronary Artery Disease: Yes Diabetes: No Diminished Hearing: No Endocrine: No Gastrointestinal Disorders: Yes (CROHN'S DISEASE) GERD: Yes Genitourinary: No Headaches: Yes Hepatitis: No Hiatal Hernia: No Hypertension: Yes Immune Disorder: No Inguinal Hernia: No Implanted Vascular Access Dvce: No Kidney Stones: No Musculoskeletal: Yes (spasms nerve damage) Neurologic: Yes Psychiatric: Yes Reproductive: Yes Respiratory: Yes Migraines: Yes Myocardial Infarction: No Radiation Therapy: No Renal Failure: No Seizures: Yes Sleep Apnea: No Ulcer: No Tetanus Vaccination: < 5 Years Influenza Vaccination: No ?: Not Menopausal: Yes : 3 Para: 3 Miscarriage: 0 : 0 Past Surgical History Abdominal Surgery: Yes (COLON RESECTION) Appendectomy: Yes Cardiac Surgery: No Section: Yes Cholecystectomy: Yes Ear Surgery: No Endocrine Surgery: No Eye Surgery: No Genitourinary Surgery: No Gynecologic Surgery: Yes (hysterectomy) Hysterectomy: Yes Neurologic Surgery: No Oral Surgery: No Pacemaker: No Thoracic Surgery: No Other Surgery: Yes (hysterectomy ) Social History Alcohol Use: Yes (OCASSIONALLY) Tobacco Use: Yes (1 PPD) Substance Use: No Allergies-Medications (Allergen,Severity, Reaction): Coded Allergies: No Known Allergies (Unverified Adverse Reaction, Unknown, 07/29/17) Reported Meds & Prescriptions Reported Meds & Active Scripts Active Ultram (Tramadol HCl) 50 Mg Tab 50 Mg PO Q4H PRN Reported Percocet (Oxycodone-Acetaminophen) 5-325 mg Tab 1-2 Tab PO Q4H PRN Zofran (Ondansetron HCl) 4 Mg Tab 4 Mg PO Q12HR PRN Tessalon Perles (Benzonatate) 100 Mg Cap 100 Mg PO TID PRN Atrovent HFA 12.9 GM Inh (Ipratropium [place]) 17 Mcg/Act Aer 2 Puff INH Q6HR PRN Proventil Hfa 6.7 GM Inh (Albuterol Sulfate) 90 Mcg/Act Aer 2 Puff INH Q4-6H PRN Ventolin Hfa 18 GM Inh (Albuterol Sulfate) 90 Mcg/Act Aer 2 Puff INH Q4-6H PRN Xanax (Alprazolam) 0.5 Mg Tab 0.5 Mg PO BID PRN Review of Systems Except as stated in HPI: all other systems reviewed are Neg Physical Exam Narrative GENERAL: Well-developed, thin, comfortable, no apparent distress. SKIN: Focused skin assessment warm/dry. No rash. HEAD: Atraumatic. Normocephalic. EYES: Pupils equal and round. No scleral icterus. No injection or drainage. ENT: No nasal bleeding or discharge. Mucous membranes pink and moist. NECK: Trachea midline. No JVD. CARDIOVASCULAR: Regular rate and rhythm. RESPIRATORY: No accessory muscle use. Mild respiratory distress. Speaking full sentences. Inspiratory and expiratory wheezes bilaterally. No rales or rhonchi. GASTROINTESTINAL: Abdomen soft, non-tender, nondistended. MUSCULOSKELETAL: No obvious deformities. No clubbing. No cyanosis. No edema. NEUROLOGICAL: Awake and alert. No obvious cranial nerve deficits. Motor grossly within normal limits. Normal speech. PSYCHIATRIC: Appropriate mood and affect; insight and judgment normal. Data Data Last Documented VS Vital Signs Date Time Temp Pulse Resp B/P (MAP) Pulse Ox O2 Delivery O2 Flow Rate FiO2 07/29/17 03:10 95 Nasal Cannula 2.00 07/29/17 03:10 07/29/17 02:49 102 26 07/29/17 02:38 98.4 Orders Orders Complete Blood Count With Diff (07/29/17 02:51) Comprehensive Metabolic Panel (07/29/17 02:51) B-Type Natriuretic Peptide (07/29/17 02:51) Act Partial Throm Time (Ptt) (07/29/17 02:51) Prothrombin Time / Inr (Pt) (07/29/17 02:51) Ckmb (Isoenzyme) Profile (07/29/17 02:51) Troponin I (07/29/17 02:51) Influenzae A/B Antigen (07/29/17 02:51) Iv Access Insert/Monitor (07/29/17 02:51) Electrocardiogram (07/29/17 02:51) Ecg Monitoring (07/29/17 02:51) Oximetry (07/29/17 02:51) Oxygen Administration (07/29/17 02:51) Chest, Single Ap (07/29/17 02:51) Sodium Chloride 0.9% Flush (Ns Flush) (07/29/17 03:00) Methylprednisolone So Succ Inj (Solumedr (07/29/17 03:00) Albuterol-Ipratropium Neb (Duoneb Neb) (07/29/17 03:00) Lipase (07/29/17 02:51) CKMB (07/29/17 03:05) CKMB% (07/29/17 03:05) Ct Pulmonary Angiogram (07/29/17 04:04) Ct Abd/Pel W Iv Contrast(Rout) (07/29/17 04:04) Sodium Chlor 0.9% 1000 Ml Inj (Ns 1000 M (07/29/17 04:30) Iohexol 350 Inj (Omnipaque 350 Inj) (07/29/17 04:58) Levofloxacin (Levaquin) (07/29/17 05:30) Labs Laboratory Tests Test 07/29/17 03:05 White Blood Count 12.7 TH/MM3 Red Blood Count 6.15 MIL/MM3 Hemoglobin 12.5 GM/DL Hematocrit 38.0 % Mean Corpuscular Volume 61.9 FL Mean Corpuscular Hemoglobin 20.3 PG Mean Corpuscular Hemoglobin Concent 32.7 % Red Cell Distribution Width 15.9 % Platelet Count 403 TH/MM3 Mean Platelet Volume 9.0 FL Neutrophils (%) (Auto) 61.2 % Lymphocytes (%) (Auto) 28.4 % Monocytes (%) (Auto) 8.5 % Eosinophils (%) (Auto) 0.5 % Basophils (%) (Auto) 1.4 % Neutrophils # (Auto) 7.8 TH/MM3 Lymphocytes # (Auto) 3.6 TH/MM3 Monocytes # (Auto) 1.1 TH/MM3 Eosinophils # (Auto) 0.1 TH/MM3 Basophils # (Auto) 0.2 TH/MM3 CBC Comment DIFF FINAL Differential Comment Prothrombin Time 10.0 SEC Prothromb Time International Ratio 1.0 RATIO Activated Partial Thromboplast Time 24.4 SEC Blood Urea Nitrogen 11 MG/DL Creatinine 0.63 MG/DL Random Glucose 77 MG/DL Total Protein 7.8 GM/DL Albumin 4.3 GM/DL Calcium Level 9.0 MG/DL Alkaline Phosphatase 67 U/L Aspartate Amino Transf (AST/SGOT) 27 U/L Alanine Aminotransferase (ALT/SGPT) 12 U/L Total Bilirubin 1.6 MG/DL Sodium Level 137 MEQ/L Potassium Level 3.5 MEQ/L Chloride Level 98 MEQ/L Carbon Dioxide Level 32.6 MEQ/L Anion Gap 6 MEQ/L Estimat Glomerular Filtration Rate 100 ML/MIN Total Creatine Kinase 105 U/L Creatine Kinase MB 2.1 NG/ML Troponin I LESS THAN 0.02 NG/ML B-Type Natriuretic Peptide 16 PG/ML Lipase 155 U/L MDM Medical Decision Making Medical Screen Exam Complete: Yes Emergency Medical Condition: Yes Differential Diagnosis COPD exacerbation, pneumonia, influenza, bronchitis, chronic abdominal pain, Crohn's flare, acute intra-abdominal/surgical process less likely Narrative Course Vital signs reviewed. CBC: WBC 12.7, hemoglobin 12.5, hematocrit 38, platelets 403. CMP is essentially unremarkable. Cardiac enzymes are negative. BNP is 16. Lipase is 155. Influenza is negative. Chest x-ray shows no acute cardiopulmonary disease. The patient was given 3 DuoNeb treatments and IV Solu-Medrol. 4:00 AM: On reassessment the patient is sleeping comfortably. When awoken she tells me that she does not feel well and that she feels short of breath and still has abdominal pain. While she was sleeping she was very comfortable and was in no respiratory distress. When she wakes up she begins to cough. CT pulmonary angiogram and CT abdomen pelvis will be ordered. CT pulmonary angiogram: CONCLUSION: 1. No PE is identified. 2. Moderate severity emphysema. CT abdomen pelvis: CONCLUSION: No acute finding is identified within the abdomen or pelvis to explain the clinical symptoms. 5:25 AM: The patient was made aware of all findings. Again she is sleeping comfortably. She is not in any respiratory distress. She'll be started on Levaquin and discharged home with a prescription for prednisone. She states she has plenty of albuterol at home. I will give her the information to the [place] clinic to follow up with this week. She was advised on when to return to the emergency department. She verbalizes understanding and agreement with plan. Diagnosis Primary Impression: COPD exacerbation Referrals: [facility] 2 days Primary Care Physician 2 days Additional Instructions: Follow-up with a primary care physician this week. Return to the emergency department for worsening symptoms or any other concerns. Scripts Prednisone (Prednisone) 50 Mg Tab 50 MG PO DAILY for 5 Days, #5 TAB 0 Refills Prov: Ruperto Diana MD 07/29/17 Levofloxacin (Levaquin) 500 Mg Tablet 500 MG PO DAILY for Infection for 5 Days, #5 TAB 0 Refills Prov: Ruperto Diana MD 07/29/17 Disposition: 01 DISCHARGE HOME Condition: Stable Ruperto Diana MD Jul 29, 2017 02:55
[2017-07-29] MEDS: RESP: ALBUTEROL 2.5 MG/IPRATROPIUM 0.5 MG NEB (SCH) INH (02:59)
[2017-07-29] MEDS ORDERED: SODIUM CHLORIDE 0.9% FLUSH 10 ML FLUSH IVF PRN (03:00)
[2017-07-29] MEDS ORDERED: methylPREDNISolone SOD SUCC 125 MG/2 ML VIAL IV PUSH ONE (03:00)
[2017-07-29 03:10] VITALS: O2SAT 95
[2017-07-29 03:13] LABS: AUTOMATED NEUTROPHIL # 7.8 TH/MM3 (1.8-7.7); BASOPHIL # 0.2 TH/MM3 (0-0.2); BASOPHIL % 1.4 % (0.0-2.0); EOSINOPHIL # 0.1 TH/MM3 (0-0.4); EOSINOPHIL % 0.5 % (0.0-4.0); HEMOGLOBIN 12.5 GM/DL (11.6-15.3); LYMPH % 28.4 % (9.0-44.0); LYMPHOCYTE # 3.6 TH/MM3 (1.0-4.8); MEAN CELL VOLUME 61.9 FL (80.0-100.0); MEAN CORPUSCULAR HEMOGLOBIN 20.3 PG (27.0-34.0); MEAN CORPUSCULAR HGB CONC 32.7 % (32.0-36.0); MONO % 8.5 % (0.0-8.0); MONOCYTE # 1.1 TH/MM3 (0-0.9); NEUT % 61.2 % (16.0-70.0); PLATELET COUNT 403 TH/MM3 (150-450); RED BLOOD COUNT 6.15 MIL/MM3 (4.00-5.30); RED CELL DISTRIBUTION WIDTH 15.9 % (11.6-17.2); WHITE BLOOD COUNT 12.7 TH/MM3 (4.0-11.0)
--- NOTE | 2017-07-29 03:20 | RADRPT ---
EXAM DATE/TIME: 07/29/2017 03:07 [facility] COMPARISON: CHEST SINGLE AP, November 21, 2016, 17:25. INDICATIONS : Short of breath. MEDICAL HISTORY : Cardiovascular disease. Hypertension. SURGICAL HISTORY : None. ENCOUNTER: Initial ACUITY: 1 day PAIN SCORE: 0/10 LOCATION: Bilateral chest FINDINGS: Portable AP view of the chest demonstrates a normal-sized cardiac silhouette. No effusion, consolidat ion, or pneumothorax is visualized. The bones and soft tissues demonstrate no acute abnormality. Lung s are underinflated. EKG lines overlie the patient. CONCLUSION: No acute cardiopulmonary abnormality is identified. Jose Roberto Urrutia MD on July 29, 2017 at 3:18 Board Certified Radiologist. This report was verified electronically.
[2017-07-29 03:28] LABS: ALBUMIN 4.3 GM/DL (3.4-5.0); ALT (GPT) 12 U/L (10-53); AST (GOT) 27 U/L (15-37); BICARBONATE 32.6 MEQ/L (21.0-32.0); BLOOD UREA NITROGEN 11 MG/DL (7-18); CHLORIDE 98 MEQ/L (98-107); CREATININE 0.63 MG/DL (0.50-1.00); GLOMERULAR FILTRATION RATE 100 ML/MIN (>89); GLUCOSE,RANDOM 77 MG/DL (74-106); SODIUM (NA) 137 MEQ/L (136-145)
[2017-07-29 03:32] LABS: ALKALINE PHOSPHATASE 67 U/L (45-117); TOTAL BILIRUBIN ADULT 1.6 MG/DL (0.2-1.0); TOTAL PROTEIN 7.8 GM/DL (6.4-8.2); TROPONIN I LESS THAN 0.02 NG/ML (0.02-0.05)
[2017-07-29] MEDS ORDERED: SODIUM CHLOR 0.9% 1000 ML INJ 1,000 ML IV ONE (04:30)
[2017-07-29] MEDS ORDERED: IOHEXOL 350 MG/ML 10 ML VIAL (for RAD DIAG) IVCONTRAST ONE (04:58)
--- NOTE | 2017-07-29 05:09 | RADRPT ---
EXAM DATE/TIME: 07/29/2017 04:43 [facility] COMPARISON: No previous studies available for comparison. INDICATIONS : Dyspnea; rule out pulmonary embolus. IV CONTRAST: 100 cc Omnipaque 350 (iohexol) IV ; Cumulative dose for multiple exams. RADIATION DOSE: 4.28 CTDIvol (mGy) MEDICAL HISTORY : Hypertension. Crohns disease. SURGICAL HISTORY : Appendectomy. Cholecystectomy.Hysterectomy.Colon resection ENCOUNTER: Initial ACUITY: 3 days PAIN SCALE: 6/10 LOCATION: chest TECHNIQUE: Volumetric scanning of the chest was performed using a pulmonary embolism protocol MIP images were re constructed. Using automated exposure control and adjustment of the mA and/or kV according to patien t size, radiation dose was kept as low as reasonably achievable to obtain optimal diagnostic quality images. DICOM format image data is available electronically for review and comparison. Follow-up recommendations for detected pulmonary nodules are based at a minimum on nodule size and pa tient risk factors according to Fleischner Society Guidelines. FINDINGS: PULMONARY ARTERIES: No filling defects are seen in the pulmonary arteries through the segmental level. LUNGS: There is no consolidation or pneumothorax . No concerning pulmonary nodule is visualized. There is m oderate severity centrilobular emphysema. PLEURAE: There is no pleural thickening or pleural effusion. MEDIASTINUM: There is good visualization of the great vessels of the middle mediastinum. No evidence of mediastin al or hilar adenopathy/mass. MUSCULOSKELETAL: No acute abnormality. MISCELLANEOUS: The visualized upper abdominal organs demonstrate no acute abnormality. CONCLUSION: 1. No PE is identified. 2. Moderate severity emphysema. Jose Roberto Urrutia MD on July 29, 2017 at 5:05 Board Certified Radiologist. This report was verified electronically.
--- NOTE | 2017-07-29 05:15 | RADRPT ---
EXAM DATE/TIME: 07/29/2017 04:46 [facility] COMPARISON: CT ABDOMEN & PELVIS W/O CONTRAST, November 26, 2016, 11:35. CT ABDOMEN & PELVIS W CONTRAST, November 19, 2016 , 20:39. INDICATIONS : Abdominal pain and general malaise. IV CONTRAST: 100 cc Omnipaque 350 (iohexol) IV ; Cumulative dose for multiple exams. ORAL CONTRAST: No oral contrast ingested. RADIATION DOSE: 6.64 CTDIvol (mGy) MEDICAL HISTORY : Hypertension. Crohns disease. SURGICAL HISTORY : Appendectomy. Cholecystectomy. Hysterectomy. Colon resection ENCOUNTER: Initial ACUITY: 3 days PAIN SCALE: 6/10 LOCATION: abdomen TECHNIQUE: Volumetric scanning of the abdomen and pelvis was performed. Using automated exposure control and ad justment of the mA and/or kV according to patient size, radiation dose was kept as low as reasonably achievable to obtain optimal diagnostic quality images. DICOM format image data is available electro nically for review and comparison. FINDINGS: LOWER LUNGS: The visualized lower lungs demonstrate no acute finding. LIVER: Homogeneous density without lesion. There is no dilation of the biliary tree. Gallbladder is absent with clips in the gallbladder fossa. SPLEEN: Normal size without lesion. PANCREAS: Within normal limits. KIDNEYS: Normal in size and shape. There is no mass, stone or hydronephrosis. ADRENAL GLANDS: Within normal limits. VASCULAR: There is no aortic aneurysm. There is mild atherosclerotic disease. BOWEL/MESENTERY: The stomach, small bowel, and colon demonstrate no acute abnormality. There is no free intraperitone al air or fluid. Right colon appears absent. ABDOMINAL WALL: Within normal limits. RETROPERITONEUM: There is no lymphadenopathy. BLADDER: Completely decompressed. REPRODUCTIVE: Uterus is absent. INGUINAL: There is no lymphadenopathy or hernia. MUSCULOSKELETAL: No acute abnormality is identified. CONCLUSION: No acute finding is identified within the abdomen or pelvis to explain the clinical symptoms. Jose Roberto Urrutia MD on July 29, 2017 at 5:10 Board Certified Radiologist. This report was verified electronically.
[2017-07-29] MEDS ORDERED: PRED50 PO (05:28)
[2017-07-29] MEDS ORDERED: LEVA500T33 PO (05:28)
[2017-07-29] MEDS ORDERED: LEVOFLOXACIN 500 MG TAB PO ONE (05:30)
--- NOTE | 2017-07-29 22:04 | EKG ---
Date Performed: 07/29/2017 Time Performed: 03:04:10 PTAGE: 52 years EKG: Sinus rhythm INCOMPLETE RIGHT BUNDLE BRANCH BLOCK PROLONGED QT INTERVAL ABNORMAL ECG NO PREVIOUS TRACING DOCTOR: Tamera Cornejo Interpretating Date/Time 07/29/2017 22:00:02
== END 2017-07-29 06:06 | disposition home or self-care (01) ==
LOC: NEPE 02:34
DX: J44.1 Chronic obstructive pulmonary disease with (acute) exacerbation (principal); F17.210 Nicotine dependence, cigarettes, uncomplicated; F41.9 Anxiety disorder, unspecified
CPT/HCPCS: 71045; 71275; 74177; 80053; 82550; 82552; 83690; 83880; 84484; 85025; 85610; 85730; 87804; 93005; 94640; 94664; 96361; 96374; 99285; J2930; J7030; Q9967

== ENCOUNTER 2017-10-06 18:17 | Emergency (ER) | payer SELFPAY ==
[~2017-10-06] VITALS: Ht 160 cm; Wt 55.0 kg
[~2017-10-06 18:17] MED LIST changes: -CIPR-9 PO; -DILA8TAB4 PO; -HYDR-3535 PO; +LEVA500T33 PO; -MEDR4PAK PO; -METR-1 PO; +PERC5TAB12 PO; +PRED50 PO
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
[2017-10-06 18:58] VITALS: BP 124/75; PULSE 98; RESP 16; TEMP 98.9; O2SAT 95
[2017-10-06] MEDS ORDERED: ONDANSETRON HCL 4 MG/2 ML VIAL IV PUSH ONE (19:15)
[2017-10-06] MEDS ORDERED: MORPHINE SULFATE 4 MG/ML INJ IV PUSH ONE ×2 (19:15→21:30)
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
[2017-10-06 20:21] LABS: AUTOMATED NEUTROPHIL # 19.5 TH/MM3 (1.8-7.7); BASOPHIL # 0.1 TH/MM3 (0-0.2); BASOPHIL % 0.3 % (0.0-2.0); EOSINOPHIL % 0.1 % (0.0-4.0); HEMATOCRIT 38.6 % (35.0-46.0); HEMOGLOBIN 12.2 GM/DL (11.6-15.3); LYMPH % 8.4 % (9.0-44.0); LYMPHOCYTE # 1.9 TH/MM3 (1.0-4.8); MEAN CELL VOLUME 63.1 FL (80.0-100.0); MEAN CORPUSCULAR HEMOGLOBIN 19.9 PG (27.0-34.0); MEAN CORPUSCULAR HGB CONC 31.6 % (32.0-36.0); MEAN PLATELET VOLUME 9.6 FL (7.0-11.0); MONOCYTE # 1.4 TH/MM3 (0-0.9); NEUT % 85.2 % (16.0-70.0); PLATELET COUNT 364 TH/MM3 (150-450); RED BLOOD COUNT 6.12 MIL/MM3 (4.00-5.30); RED CELL DISTRIBUTION WIDTH 16.3 % (11.6-17.2); WHITE BLOOD COUNT 22.8 TH/MM3 (4.0-11.0)
[2017-10-06 20:44] LABS: BICARBONATE 30.2 MEQ/L (21.0-32.0); CALCIUM 9.3 MG/DL (8.5-10.1); CREATININE 0.56 MG/DL (0.50-1.00)
[2017-10-06] MEDS ORDERED: IOHEXOL 350 MG/ML 10 ML VIAL (for RAD DIAG) IVCONTRAST ONE (21:14)
[2017-10-06 21:35] VITALS: BP 110/66; PULSE 98; RESP 16; O2SAT 95
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
[2017-10-06 22:40] VITALS: BP 143/79; PULSE 102; RESP 16; O2SAT 90
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
[2017-10-06] MEDS ORDERED: IBUP-232 PO (23:28)
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
[2017-10-07] MEDS ORDERED: KETOROLAC TROMETHAMINE 30 MG/ML (IVP) VIAL IV PUSH ONE (00:30)
[2017-10-07 06:44] VITALS: BP 135/62; PULSE 95; RESP 18; O2SAT 95
[2017-10-08] MEDS ORDERED: TRAM50TA PO (15:30)
[2017-10-08] MEDS ORDERED: ROBA500T PO (15:30)
== END 2017-10-07 08:35 | disposition home or self-care (01) ==
LOC: NEPD 18:17
DX: S62.647A Nondisplaced fracture of proximal phalanx of left little finger, initial encounter for closed fracture (principal); R16.0 Hepatomegaly, not elsewhere classified; R07.9 Chest pain, unspecified; M54.9 Dorsalgia, unspecified; M54.2 Cervicalgia; R10.9 Unspecified abdominal pain; M25.562 Pain in left knee; Y04.8XXA Assault by other bodily force, initial encounter; Z99.81 Dependence on supplemental oxygen
CPT/HCPCS: 29130; 70450; 71260; 72125; 72129; 72132; 73140; 74177; 80048; 85025; 85610; 85730; 96374; 96375; 96376; 99285; J1885; J2270; J2405; Q9967

== ENCOUNTER 2017-10-08 13:58 | Emergency (ER) | payer SELFPAY ==
[~2017-10-08] VITALS: Ht 160 cm; Wt 47.0 kg
[~2017-10-08 13:58] MED LIST changes: +IBUP-232 PO
[2017-10-08 14:09] VITALS: BP 141/63; PULSE 98; RESP 23; TEMP 99.1; O2SAT 89
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
[2017-10-08] MEDS ORDERED: TRAM50TA PO (15:30)
[2017-10-08] MEDS ORDERED: traMADol HCL 50 MG TAB PO ONE (15:30)
[2017-10-08] MEDS ORDERED: METHOCARBAMOL 500 MG TAB PO ONE (15:30)
[2017-10-08] MEDS ORDERED: ROBA500T PO (15:30)
[2017-10-08 16:08] VITALS: BP 125/72; PULSE 99; RESP 18; O2SAT 94
== END 2017-10-08 16:24 | disposition home or self-care (01) ==
LOC: NEPD 13:58
DX: R52 Pain, unspecified (principal); T76.21XA Adult sexual abuse, suspected, initial encounter; F17.200 Nicotine dependence, unspecified, uncomplicated
CPT/HCPCS: 99283

== ENCOUNTER 2017-11-07 12:06 | Emergency (ER) | payer SELFPAY ==
[~2017-11-07 12:06] MED LIST changes: +ROBA500T PO; +TRAM50TA PO
[2017-11-07 12:12] VITALS: BP 134/79; PULSE 99; RESP 16; TEMP 98.6; O2SAT 96
== END 2017-11-07 13:23 | disposition left against medical advice (07) ==
LOC: NED 12:06
DX: S69.92XA Unspecified injury of left wrist, hand and finger(s), initial encounter (principal); X58.XXXA Exposure to other specified factors, initial encounter
CPT/HCPCS: 99281

== ENCOUNTER 2018-05-04 21:30 | Observation (INO) ==
--- NOTE | 2018-05-05 01:15 | ED ---
HPI General Chief Complaint: Fall Stated Complaint: fall/evac Time Seen by Provider: 05/04/18 23:49 Source: patient Mode of arrival: ambulatory Limitations: no limitations History of Present Illness HPI Narrative: 53-year-old female came to the emergency room with history of a fall 2 days ago on the steps. Patient says that the steps were wet and she was wearing some flip-flops. She slipped and fell 6 steps. She has bruising on her chest and back and says she has been in significant pain since then. He says it hurts to breathe. Patient has history of COPD and requires 3 L of oxygen at home all the time. She is also on Percocet for chronic pain but ran out of her medications. She says she did not take any breathing treatments today. Patient is a smoker. Vital signs were stable. Pain is worse on movement. Related Data Home Medications Medication Instructions Recorded Confirmed albuterol sulfate 2.5 mg INHALATION Q4H PRN 01/10/18 05/04/18 alprazolam [Xanax] 0.5 mg PO BID 01/10/18 05/04/18 nebulizers 01/10/18 05/04/18 prednisone 30 mg PO BID 01/10/18 05/04/18 zolpidem [Ambien] 10 mg PO HS 01/10/18 05/04/18 benzonatate [Tessalon Perles] 100 mg PO TID PRN 05/04/18 05/04/18 ondansetron [Zofran ODT] 4 mg PO Q4-6H PRN 05/05/18 05/05/18 Advair Diskus INHALATION PRN PRN 05/07/18 Previous Rx's Medication Instructions Recorded methocarbamol 500 mg PO Q8HR 7 Days #21 tab 05/07/18 oxycodone-acetaminophen 1 tab PO Q4H PRN 3 Days #18 tab 05/07/18 Allergies Allergy/AdvReac Type Severity Reaction Status Date / Time No Known Allergies Allergy Verified 05/04/18 22:05 Review of Systems ROS: all other systems reviewed are negative FOR[facility]LY [facility] Medical History Medical History COPD (chronic obstructive pulmonary disease) (Acute) Crohn's disease (Acute) Hx of hysterectomy (Acute) Surgical History Surgical History Hx of appendectomy (Acute) Hx of section (Acute) S/P colon resection (Acute) Social History Social History Substance History: Active Abuse Second Hand Smoke Exposure: Yes Smoking Status: Current every day smoker Tobacco Type: Cigarettes How Often Do You Have a Drink Containing Alcohol: 2 to 3 times a week Recent Travel in [facility] within the Last 8 Weeks: No Recent Out of Country Travel within the Last 8 Weeks: No Immunization History Tetanus Immunization: <5 Years Course Initial Documented Vital Signs Temperature 98 F 05/04/18 22:05 Pulse Rate 88 05/04/18 22:05 Respiratory Rate 20 05/04/18 22:05 Blood Pressure 138/72 05/04/18 22:05 Pulse Oximetry 98 05/04/18 22:05 Last Documented Vital Signs Temperature 97.6 F 05/07/18 12:00 Pulse Rate 100 H 05/07/18 12:00 Respiratory Rate 20 05/07/18 12:00 Blood Pressure 130/61 05/07/18 12:00 Pulse Oximetry 95 05/07/18 12:00 Medical Decision Making MDM Narrative Medical decision making narrative: 1:15 AM chest x-ray has been ordered to look for any rib fractures or pneumothorax. Patient was given a breathing treatment. If the x-ray is negative she will be discharged home. 2:41 AM based on the chest x-ray read I ordered CT scan of the chest which shows multiple ribs fracture and thoracic spine fracture. There is also nondisplaced clavicular fracture. Patient has been hospitalized. I discussed with the patient the test results and the plan and she is agreeable to it. Medical Screen Exam Complete: Yes Emergency Medical Condition: Yes Lab Data Result diagrams: 05/06/18 06:01 05/06/18 06:01 Lab Results 05/05/18 05/05/18 05/06/18 Range/Units 02:41 02:41 06:01 WBC 11.3 H 11.3 H (4.0-11.0) th/mm3 RBC 5.85 H 6.34 H (4.00-5.30) mil/mm3 Hgb 11.8 12.7 (11.6-15.3) gm/dL Hct 37.9 42.3 (35.0-46.0) % MCV 64.9 L 66.8 L (80.0-100.0) fL MCH 20.1 L 20.0 L (27.0-34.0) pg MCHC 31.1 L 29.9 L (32.0-36.0) % RDW 16.5 17.4 H (11.6-17.2) % Plt Count 368 352 (150-450) th/mm3 MPV 9.1 9.4 (7.0-11.0) fL Neut % (Auto) 62.2 79.7 H (16.0-70.0) % Lymph % (Auto) 26.5 12.0 (9.0-44.0) % Hodgeman % (Auto) 9.9 H 8.0 (0.0-8.0) % Eos % (Auto) 1.0 0.1 (0.0-4.0) % Baso % (Auto) 0.4 0.2 (0.0-2.0) % Neut # (Auto) 7.0 9.0 H (1.8-7.7) th/mm3 Lymph # (Auto) 3.0 1.4 (1.0-4.8) th/mm3 Hodgeman # (Auto) 1.1 H 0.9 (0.0-0.9) th/mm3 Eos # (Auto) 0.1 0.0 (0.0-0.4) th/mm3 Baso # (Auto) 0.0 0.0 (0.0-0.2) th/mm3 WBC Differential . . Differential Comment Auto diff final Auto diff final Sodium 142 (136-145) meq/L Potassium 3.3 L (3.5-5.1) meq/L Chloride 102 (98-107) meq/L Carbon Dioxide 30.5 (21.0-32.0) meq/L Anion Gap 10 (5-15) meq/L BUN 7 (7-18) mg/dL Creatinine 0.53 (0.50-1.00) mg/dL Estimated GFR Greater than 89 (>89) mL/min Random Glucose 84 (74-106) mg/dL Calcium 8.3 L (8.5-10.1) mg/dL Total Bilirubin 1.4 H (0.2-1.0) mg/dL AST 17 (15-37) U/L ALT 16 (10-53) U/L Alkaline Phosphatase 63 (45-117) U/L Total Protein 6.9 (6.4-8.2) g/dL Albumin 3.7 (3.4-5.0) g/dL 05/06/18 Range/Units 06:01 WBC (4.0-11.0) th/mm3 RBC (4.00-5.30) mil/mm3 Hgb (11.6-15.3) gm/dL Hct (35.0-46.0) % MCV (80.0-100.0) fL MCH (27.0-34.0) pg MCHC (32.0-36.0) % RDW (11.6-17.2) % Plt Count (150-450) th/mm3 MPV (7.0-11.0) fL Neut % (Auto) (16.0-70.0) % Lymph % (Auto) (9.0-44.0) % Hodgeman % (Auto) (0.0-8.0) % Eos % (Auto) (0.0-4.0) % Baso % (Auto) (0.0-2.0) % Neut # (Auto) (1.8-7.7) th/mm3 Lymph # (Auto) (1.0-4.8) th/mm3 Hodgeman # (Auto) (0.0-0.9) th/mm3 Eos # (Auto) (0.0-0.4) th/mm3 Baso # (Auto) (0.0-0.2) th/mm3 WBC Differential Differential Comment Sodium 141 (136-145) meq/L Potassium 4.2 D (3.5-5.1) meq/L Chloride 100 (98-107) meq/L Carbon Dioxide 33.8 H (21.0-32.0) meq/L Anion Gap 7 (5-15) meq/L BUN 6 L (7-18) mg/dL Creatinine 0.54 (0.50-1.00) mg/dL Estimated GFR Greater than 89 (>89) mL/min Random Glucose 88 (74-106) mg/dL Calcium 8.8 (8.5-10.1) mg/dL Total Bilirubin 1.0 (0.2-1.0) mg/dL AST 22 (15-37) U/L ALT 16 (10-53) U/L Alkaline Phosphatase 75 (45-117) U/L Total Protein 7.1 (6.4-8.2) g/dL Albumin 3.7 (3.4-5.0) g/dL Imaging Data Radiologist's impression: Chest X-Ray 05/05/18 00:16 CONCLUSION: 1. No acute cardiopulmonary disease identified. 2. Multiple compression fracture deformities of the upper to mid thoracic spine again seen. One additional level involved when compared to the prior study of 10/06/2017. No evidence of bony retropulsion. Chest CT 05/05/18 01:21 CONCLUSION: 1. Acute posterior ninth, 10th, 11th rib fractures. Nondisplaced. 2. Multiple thoracic spine vertebral body compression fractures again seen. New fractures at T4 and T9 noted. No evidence of bony retropulsion. 3. Nondisplaced right clavicular head fracture adjacent to the sternoclavicular joint. 4. Mild pulmonary emphysema. No evidence of pleural effusion or pneumothorax. 5. Mild bilateral atelectasis unchanged. Cervical Spine CT 05/05/18 02:23 CONCLUSION: 1. No evidence of fracture. 2. Degenerative findings at C3-4. Head CT 05/05/18 02:23 CONCLUSION: No acute intracranial findings. . Neck Ultrasound 05/06/18 00:00 CONCLUSION: No sonographic abnormality identified at site of palpable concern in the right neck. Discharge Plan Discharge Disposition Patient Disposition: 01 Discharge Home Discharge Condition Condition: Stable Discharge Order Discharge Orders: Discharge Order (Routine); Ordered 05/07/18 Ordered By: Laura Avendaño Discharge Details Anticipated Discharge Date: 05/07/18 Physicians Team ED Provider: Mikel Green Primary Care Provider: Primary Care Caroline Crenshaw Attending Provider: Yang Myers Status ED Status: Left Department Discharge Information Discharge Date/Time: 05/05/18 05:13
--- NOTE | 2018-05-05 01:16 | XR ---
EXAM DATE: 05/05/2018 1:05 AM EST AGE/SEX: 53 years / Female INDICATIONS: . Chest pain for 2 days after falling down the stairs. CLINICAL DATA: This is the patient's initial encounter. Patient reports that signs and symptoms have been present for 2 days and indicates a pain score of 8/10. MEDICAL/SURGICAL HISTORY: . Crohn's disease. Chronic obstructive pulmonary disease. . Hystere ctomy. Appendectomy. Colon resection. COMPARISON: [facility] [place], [place] THORACIC SPINE W CONTRAST, 10/06/2017. . FINDINGS: AP and lateral views of the chest. The lungs are clear. Cardiomediastinal silhouette with in normal limits. No evidence of pleural effusion or pneumothorax. Multiple compression fracture de formities of the mid to upper thoracic spine again seen. On the prior thoracic spine CT of September 2017 at T5, T6, T7, and T8 levels demonstrated compression fracture deformities. It now appears to be inv olvement of the T9 level as well with moderately decreased height at T9. CONCLUSION: 1. No acute cardiopulmonary disease identified. 2. Multiple compression fracture deformities of the upper to mid thoracic spine again seen. One zamzam tional level involved when compared to the prior study of 10/06/2017. No evidence of bony retropulsion . Electronically signed by: Samy Pena MD 05/05/2018 1:14 AM EST
--- NOTE | 2018-05-05 02:18 | CT ---
EXAM DATE: 05/05/2018 2:00 AM EST AGE/SEX: 53 years / Female INDICATIONS: Fall. Right sided rib pain. CLINICAL DATA: This is the patient's initial encounter. Patient reports that signs and symptoms have been present for 1 day and indicates a pain score of 10/10. MEDICAL/SURGICAL HISTORY: Chronic obstructive pulmonary disease. Crohn?s disease. Cholecystectomy. Appendectomy. Hysterectomy. Colon resection RADIATION DOSE: 6.41 CTDI (mGy) [place] [facility] [place] 10[place]06/2017. . TECHNIQUE: Multiple contiguous axial images were obtained through the chest without contrast. Image s were obtained in suspended respiration using multiple row detector helical technique. Using automa ashley exposure control and adjustment of the mA and/or kV according to patient size, radiation dose was kept as low as reasonably achievable to obtain optimal diagnostic quality images. DICOM format imag e data is available electronically for review and comparison. FINDINGS: Lungs: Mild pulmonary parenchymal emphysema. Mild atelectasis in the lower lobes and lingula similar to the prior study. Lungs are otherwise clear. Mediastinum: No enlarged lymph nodes. Thoracic aorta diameter within normal limits. Pleurae: No evidence of pleural effusion or pneumothorax. Axillae: Unremarkable. Bony Structures: Acute right posterior 11th rib fracture, nondisplaced. Acute nondisplaced posterior ninth and 10th rib fractures also noted on the right. Multiple old right-sided rib fractures are als o seen. There is a nondisplaced fracture of the right clavicular head 1.3 cm from the sternoclavicula r joint. This is a new finding when compared to the prior study. Old sternal manubrium fracture. Mult iple mid to upper thoracic spine vertebral body compression fractures again seen. T4 fracture is due compared to the prior study with mild superior and inferior endplate concavity along with mild sclero sis of the inferior aspect of the vertebral body. Increased severity of the T8 vertebral body fractur e deformity also noted. New T9 vertebral body fracture deformity with moderately decreased height and superior endplate concavity. Miscellaneous: Surgical clips in the gallbladder fossa. Minimal coronary artery calcification. CONCLUSION: 1. Acute posterior ninth, 10th, 11th rib fractures. Nondisplaced. 2. Multiple thoracic spine vertebral body compression fractures again seen. New fractures at T4 and T9 noted. No evidence of bony retropulsion. 3. Nondisplaced right clavicular head fracture adjacent to the sternoclavicular joint. 4. Mild pulmonary emphysema. No evidence of pleural effusion or pneumothorax. 5. Mild bilateral atelectasis unchanged. Electronically signed by: Samy Pena MD 05/05/2018 2:16 AM EST
[2018-05-05] MEDS ORDERED: Morphine Inj 4 MG/ML Vial IV.PUSH ONE (02:23)
[2018-05-05] MEDS ORDERED: Acetaminophen 325 MG Tablet PO PRN (02:42)
[2018-05-05] MEDS ORDERED: Bisacodyl 10 MG Supp RECTAL PRN (02:42)
[2018-05-05 02:47] LABS: Baso % (Auto) 0.4 % (0.0-2.0); Eos # (Auto) 0.1 th/mm3 (0.0-0.4); Hematocrit 37.9 % (35.0-46.0); Hemoglobin 11.8 gm/dL (11.6-15.3); Lymph % (Auto) 26.5 % (9.0-44.0); Mean Corpuscular HGB Conc 31.1 % (32.0-36.0); Mean Corpuscular Hemoglobin 20.1 pg (27.0-34.0); Mean Corpuscular Volume 64.9 fL (80.0-100.0); Mean Platelet Volume 9.1 fL (7.0-11.0); Mono # (Auto) 1.1 th/mm3 (0.0-0.9); Mono % (Auto) 9.9 % (0.0-8.0); Neut % (Auto) 62.2 % (16.0-70.0); Platelet Count 368 th/mm3 (150-450); Red Blood Count 5.85 mil/mm3 (4.00-5.30); Red Cell Distribution Width 16.5 % (11.6-17.2); White Blood Count 11.3 th/mm3 (4.0-11.0)
--- NOTE | 2018-05-05 02:58 | CT ---
EXAM DATE: 05/05/2018 2:52 AM EST AGE/SEX: 53 years / Female INDICATIONS: Fell downstairs. CLINICAL DATA: This is the patient's initial encounter. Patient reports that signs and symptoms have been present for 1 day and indicates a pain score of 0/10. MEDICAL/SURGICAL HISTORY: Chronic obstructive pulmonary disease. Crohn?s disease. Appendectomy. C holecystectomy. Hysterectomy. Colon resection RADIATION DOSE: 56.34 CTDI (mGy) COMPARISON: No prior exams available for comparison. TECHNIQUE: CT of the head without contrast. Using automated exposure control and adjustment of the mA and/or kV according to patient size, radiation dose was kept as low as reasonably achievable to ob tain optimal diagnostic quality images. DICOM format image data is available electronically for revi ew and comparison. FINDINGS: Cerebrum: The ventricles are normal for age. No evidence of midline shift, mass lesion, hemorrhage or acute infarction. No extraaxial fluid collections are seen. Posterior Fossa: The cerebellum and brainstem are intact. The 4th ventricle is midline. The cerebe llopontine angle is unremarkable. Extracranial: The visualized portion of the orbits is intact. Skull: The calvaria is intact. No evidence of skull fracture. CONCLUSION: No acute intracranial findings. . Electronically signed by: Samy Pena MD 05/05/2018 2:56 AM EST
[2018-05-05 03:03] LABS: Alanine Aminotransferase 16 U/L (10-53); Albumin 3.7 g/dL (3.4-5.0); Anion Gap 10 meq/L (5-15); Aspartate Aminotransferase 17 U/L (15-37); Blood Urea Nitrogen 7 mg/dL (7-18); Calcium 8.3 mg/dL (8.5-10.1); Carbon Dioxide 30.5 meq/L (21.0-32.0); Chloride 102 meq/L (98-107); Glomerular Filtration Rate Greater Than 89 mL/min (>89); Glucose,Random 84 mg/dL (74-106); Potassium 3.3 meq/L (3.5-5.1); Sodium 142 meq/L (136-145)
--- NOTE | 2018-05-05 03:03 | CT ---
EXAM DATE: 05/05/2018 2:57 AM EST AGE/SEX: 53 years / Female INDICATIONS: Fell downstairs. CLINICAL DATA: This is the patient's initial encounter. Patient reports that signs and symptoms have been present for 1 day and indicates a pain score of 0/10. MEDICAL/SURGICAL HISTORY: Chronic obstructive pulmonary disease. Crohn?s disease. Appendectomy . Cholecystectomy. Hysterectomy. Colon resection RADIATION DOSE: 18.54 CTDI (mGy) COMPARISON: No prior exams available for comparison. TECHNIQUE: Contiguous axial images were obtained using helical multirow detector technique. The vol umetric data was post-processed with multiplanar reconstruction in oblique axial, sagittal, and coron al planes. Using automated exposure control and adjustment of the mA and/or kV according to patient s ize, radiation dose was kept as low as reasonably achievable to obtain optimal diagnostic quality hazel ges. DICOM format image data is available electronically for review and comparison. FINDINGS: Vertebrae: Normal vertebral body height. Alignment: Normal. No subluxation. C2-3: The bony spinal canal is normal in size. No evidence of disc bulge or herniation. The neural foramina are bilaterally patent. C3-4: Minimal broad-based disc osteophyte complex. Left-sided facet arthrosis. Mild left neural fora yovani narrowing. Central canal diameter within normal limits. Vacuum phenomenon in the posterior aspe ct of the disc. C4-5: The bony spinal canal is normal in size. No evidence of disc bulge or herniation. The neural foramina are bilaterally patent. C5-6: The bony spinal canal is normal in size. No evidence of disc bulge or herniation. The neural foramina are bilaterally patent. C6-7: The bony spinal canal is normal in size. No evidence of disc bulge or herniation. The neural foramina are bilaterally patent. C7-T1: The bony spinal canal is normal in size. No evidence of disc bulge or herniation. The neura l foramina are bilaterally patent. CONCLUSION: 1. No evidence of fracture. 2. Degenerative findings at C3-4. Electronically signed by: Samy ePna MD 05/05/2018 3:01 AM EST
[2018-05-05 03:06] LABS: Alkaline Phosphatase 63 U/L (45-117); Total Protein 6.9 g/dL (6.4-8.2)
[2018-05-05] MEDS ORDERED: Potassium Chlor 20 mEq Premix 20 MEQ/100 ML PIGGYBACK IV.SIG ONE (03:12)
--- NOTE | 2018-05-05 03:23 | P.HPIM ---
History of Present Illness Primary Care Physician: No Primary Care Physician History of Present Illness: This is a 53-year-old female with a PMH of COPD, O2 Dependent and Tobacco Abuse who presented to the ER with complaints of ongoing chest and back pain after a fall 2 days ago. Pt states she was walking down the stairs from her sister in laws apartment and tripped on the wet stairs since it had rained that night. States she fell approx 6 steps, unsure if she hit her head but denies LOC. Did not seek medical attention at that time. Presents tonight for ongoing chest and back pain, pain is sharp, constant, 10/10, non-radiating, worse w/ movement. Denies SOB. On arrival, BP 138/72, HR 88, O2 sat 98% on RA, Afebrile. WBC 11.3. Chemistry essentially unremarkable. CXR with multiple compression fracture deformities of upper to mid thoracic spine again seen in comparison to study from 10/06/2017. CT Chest with acute posterior ninth 10th 11th rib fractures, nondisplaced, multiple thoracic body compression fractures, new fractures at T4 and T9, no bony retropulsion, nondisplaced right clavicular head fracture, mild pulmonary emphysema, no pneumothorax. CT C-spine negative. CT Head negative. - Diagnosis (1) Fall (2) Thoracic compression fracture (3) Rib fractures (4) Clavicular fracture (5) COPD (chronic obstructive pulmonary disease) (6) Tobacco abuse Review of Systems PAST FAMILY HISTORY: Reviewed. No h/o DM or CAD All other systems reviewed negative except as stated in HPI PMFSH - History History Provided By: Patient - Medical History Medical History: Medical History (Last Reviewed 05/05/18 @ 01:14 by Mikel Green MD) COPD (chronic obstructive pulmonary disease) Crohn's disease Hx of hysterectomy - Surgical History Surgical History: Surgical History (Last Reviewed 05/05/18 @ 01:14 by Mikel Green MD) Hx of appendectomy Hx of section S/P colon resection - Tobacco History Second Hand Smoke Exposure: Yes Tobacco Use In Past 30 Days: Yes Smoking Status: Current every day smoker Tobacco Type: Cigarettes - Alcohol History How Often Do You Have a Drink Containing Alcohol: 4 or more times a week - Substance Use History Substance History: No History of Abuse - Travel History Recent Travel in the [place] Within the Last 8 Weeks: No Recent Travel Out of the Country Within the Last 8 Weeks: No - Immunization History Tetanus Immunization: <5 Years Medications and Allergies Active Medications: Active Medications Acetaminophen (Tylenol) 650 mg PO Q4H PRN PRN Reason: Temp > 100.4 Hydrocodone Bitart/Acetaminophen ([place] 5/325) 1 tab PO Q4H PRN PRN Reason: PAIN 3-5 Al Hydroxide/Mg Hydroxide (Milk Of Magnesia Liq) 30 ml PO Q12H PRN PRN Reason: Mild Constipation Albuterol (Duoneb Neb (Prn)) 1 ampul NEB Q4HR NEB PRN PRN Reason: SOB/WHEEZING Bisacodyl (Dulcolax Supp) 10 mg RECTAL DAILY PRN PRN Reason: SEVERE CONSITIPATION Lactulose (Lactulose Liq) 30 ml PO DAILY PRN PRN Reason: SEVERE CONSITIPATION Morphine Sulfate (Morphine Inj) 2 mg IV.PUSH Q4H PRN PRN Reason: PAIN 6-10 Ondansetron HCl (Zofran Inj) 4 mg IV.PUSH Q6H PRN PRN Reason: NAUSEA OR VOMITING Senna/Docusate Sodium (Amie-Colace) 1 tab PO BID NICOLE Sennosides (Senokot) 17.2 mg PO Q12H PRN PRN Reason: Moderate Constipation Allergies Allergy/AdvReac Type Severity Reaction Status Date / Time No Known Allergies Allergy Verified 05/04/18 22:05 Home Medications Medication Instructions Recorded Confirmed Type albuterol sulfate 2.5 mg INHALATION Q4H PRN 01/10/18 05/04/18 History alprazolam [Xanax] 0.5 mg PO BID 01/10/18 05/04/18 History hydrocodone-acetaminophen 2 tab PO Q6H PRN 01/10/18 05/04/18 History nebulizers 01/10/18 05/04/18 History prednisone 30 mg PO BID 01/10/18 05/04/18 History zolpidem [Ambien] 10 mg PO HS 01/10/18 05/04/18 History benzonatate [Tessalon Perles] 100 mg PO TID PRN 05/04/18 05/04/18 History ondansetron [Zofran ODT] 4 mg PO Q4-6H PRN 05/05/18 05/05/18 History Exam Vital signs: Vital Signs 05/04/18 22:05 05/04/18 23:50 05/05/18 00:28 Temperature 98 F Pulse Rate 88 89 96 H Respiratory Rate 20 25 H 17 Blood Pressure 138/72 151/91 H Pulse Oximetry 98 100 96 Intake & Output 05/04/18 05/04/18 05/05/18 06:59 18:59 06:59 Weight 65.771 kg Narrative: PE: GENERAL: Middle-aged white female in no acute distress. SKIN: Focused skin assessment warm and dry. HEENT: PERRLA, EOMI. No scleral icterus or conjunctival pallor. No lid lag or facial droop. CARDIOVASCULAR: Regular rate and rhythm. No obvious murmurs to auscultation. No chest tenderness to palpation. RESPIRATORY: No obvious rhonchi or wheezing. Clear to auscultation. Breath sounds equal bilaterally. GASTROINTESTINAL: Abdomen soft, non-tender, nondistended. BS normal. MUSCULOSKELETAL: Extremities without clubbing, cyanosis, or edema. No obvious deformities. +thoracic paraspinal muscle tenderness to palpation NEUROLOGICAL: Awake, alert and oriented x4. No focal neurologic deficits. Moving both upper and lower extremities spontaneously. PSYCHIATRIC: Appropriate mood and affect. Insight and judgment normal. Results - Labs CBC & Chem 7: 05/05/18 02:41 05/05/18 02:41 Labs: Short CBC 05/05/18 Range/Units 02:41 WBC 11.3 H (4.0-11.0) th/mm3 Hgb 11.8 (11.6-15.3) gm/dL Hct 37.9 (35.0-46.0) % Plt Count 368 (150-450) th/mm3 [facility] 05/05/18 02:41 Sodium 142 Potassium 3.3 L Chloride 102 Carbon Dioxide 30.5 BUN 7 Creatinine 0.53 Calcium 8.3 L Liver Function 05/05/18 Range/Units 02:41 Total Bilirubin 1.4 H (0.2-1.0) mg/dL AST 17 (15-37) U/L ALT 16 (10-53) U/L Alkaline Phosphatase 63 (45-117) U/L Albumin 3.7 (3.4-5.0) g/dL - Imaging Impressions Chest X-Ray 05/05/18 00:16 CONCLUSION: 1. No acute cardiopulmonary disease identified. 2. Multiple compression fracture deformities of the upper to mid thoracic spine again seen. One additional level involved when compared to the prior study of 10/06/2017. No evidence of bony retropulsion. Chest CT 05/05/18 01:21 CONCLUSION: 1. Acute posterior ninth, 10th, 11th rib fractures. Nondisplaced. 2. Multiple thoracic spine vertebral body compression fractures again seen. New fractures at T4 and T9 noted. No evidence of bony retropulsion. 3. Nondisplaced right clavicular head fracture adjacent to the sternoclavicular joint. 4. Mild pulmonary emphysema. No evidence of pleural effusion or pneumothorax. 5. Mild bilateral atelectasis unchanged. Cervical Spine CT 05/05/18 02:23 CONCLUSION: 1. No evidence of fracture. 2. Degenerative findings at C3-4. Head CT 05/05/18 02:23 CONCLUSION: No acute intracranial findings. . Caprini VTE Risk Assessment Caprini VTE Risk Assessment: No/Low Risk (score <= 1) Caprini Risk Assessment Model: Point Value = 1 Point Value = 2 Point Value = 3 Point Value = 5 Age 41-60 Minor surgery BMI > 25 kg/m2 Swollen legs Varicose veins or History of unexplained or recurrent spontaneous Oral contraceptives or hormone replacement Sepsis (< 1 month) Serious lung disease, including pneumonia (< 1 month) Abnormal pulmonary function Acute myocardial infarction Congestive heart failure (< 1 month) History of inflammatory bowel disease Medical patient at bed rest Age 61-74 Arthroscopic surgery Major open surgery (> 45 min) Laparoscopic surgery (> 45 min) Malignancy Confined to bed (> 72 hours) Immobilizing plaster cast Central venous access Age >= 75 History of VTE Family history of VTE Factor V Leiden Prothrombin [id number] Lupus anticoagulant Anticardiolipin antibodies Elevated serum homocysteine Heparin-induced thrombocytopenia Other congenital or acquired thrombophilia Stroke (< 1 month) Elective arthroplasty Hip, pelvis, or leg fracture Acute spinal cord injury (< 1 month) Prophylaxis Regimen: Total Risk Factor Score Risk Level Prophylaxis Regimen 0-1 Low Early ambulation 2 Moderate Order ONE of the following: *Sequential Compression Device (SCD) *Heparin 5000 units SQ BID 3-4 Higher Order ONE of the following medications: *Heparin 5000 units SQ TID *Enoxaparin/Lovenox 40 mg SQ daily (WT < 150 kg, CrCl > 30 mL/min) *Enoxaparin/Lovenox 30 mg SQ daily (WT < 150 kg, CrCl > 10-29 mL/min) *Enoxaparin/Lovenox 30 mg SQ BID (WT < 150 kg, CrCl > 30 mL/min) AND/OR *Sequential Compression Device (SCD) 5 or more Highest Order ONE of the following medications: *Heparin 5000 units SQ TID (Preferred with Epidurals) *Enoxaparin/Lovenox 40 mg SQ daily (WT < 150 kg, CrCl > 30 mL/min) *Enoxaparin/Lovenox 30 mg SQ daily (WT < 150 kg, CrCl > 10-29 mL/min) *Enoxaparin/Lovenox 30 mg SQ BID (WT < 150 kg, CrCl > 30 mL/min) AND *Sequential Compression Device (SCD) Assessment and Plan - Assessment (1) Fall Code(s): W19.XXXA - Unspecified fall, initial encounter Status: Acute (2) Thoracic compression fracture Code(s): S22.000A - Wedge compression fracture of unspecified thoracic vertebra , initial encounter for closed fracture Status: Acute (3) Rib fractures Code(s): S22.39XA - Fracture of one rib, unspecified side, initial encounter for closed fracture Status: Acute (4) Clavicular fracture Code(s): S42.009A - Fracture of unspecified part of unspecified clavicle, initial encounter for closed fracture Status: Acute (5) COPD (chronic obstructive pulmonary disease) Code(s): J44.9 - Chronic obstructive pulmonary disease, unspecified Status: Acute (6) Tobacco abuse Code(s): Z72.0 - Tobacco use Status: Acute - Plan A/P: 1. Fall: s/p mechanical fall down approx 6 steps 2 days ago, she is unsure if she sustained head trauma, but no LOC. CT Head/C-Spine w/ no acute findings, images reviewed. 2. Thoracic Compression Fx: CT Chest w/ multiple thoracic spine compression fractures, similar to imaging from 09/2017, w/ new T4 and T9 fractures, no retropulsion, images reviewed. Pt denies h/o recurrent falls or trauma. TLSO, PT for eval/tx. Analgesics/antiemetics for pain control. 3. 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 Analgesics as needed, Lidoderm patch prn if need, incentive spirometry. 4. Clavicular Fracture: Right. CT Chest w/ right clavicular fracture, non- displaced, images reviewed. No surgical intervention. 5. COPD: Chronic Respiratory Failure, s/p DuoNeb in ER, will continue w/ DuoNeb prn as needed. O2 Dependent, continue O2, monitor sats. 6. Tobacco Abuse: Pt counselled. NicoDerm prn if needed. 7. DVT Prophylaxis: SCD/Teds 8. Social work for d/c planning as needed. 9. Case discussed w/ ER physician at length, labs/records/imaging reviewed by me.
[2018-05-05] MEDS: Senna/Docusate Sodium 8.6/50 MG Tablet PO SCH ×2 (09:18→22:54)
[2018-05-05] MEDS: Morphine Sulfate Inj 2 MG/ML Vial IV.PUSH PRN ×3 (09:34→21:53)
--- NOTE | 2018-05-05 10:28 | P.PNADD ---
Addendum to Inpatient Note Reason for Addendum: Additional Documentation Additional information: Patient seen and examined, complains of back pain. Chronically short of breath on oxygen at home. Continues to smoke but states she will quit. No acute changes overnight. Home medications reviewed, initiated as indicated Patient on chronic steroids, takes prednisone 10 mg p.o. 3 times daily.
[2018-05-05] MEDS: Benzonatate 100 MG Capsule PO PRN (12:19)
[2018-05-05] MEDS: predniSONE 10 MG Tablet PO SCH ×2 (14:41→19:48)
[2018-05-05] MEDS: ALPRAZolam 0.5 MG Tablet PO SCH (22:53)
[2018-05-06] MEDS: Morphine Sulfate Inj 2 MG/ML Vial IV.PUSH PRN ×5 (05:38→22:45)
[2018-05-06 07:39] LABS: Alanine Aminotransferase 16 U/L (10-53); Albumin 3.7 g/dL (3.4-5.0); Alkaline Phosphatase 75 U/L (45-117); Anion Gap 7 meq/L (5-15); Aspartate Aminotransferase 22 U/L (15-37); Blood Urea Nitrogen 6 mg/dL (7-18); Calcium 8.8 mg/dL (8.5-10.1); Carbon Dioxide 33.8 meq/L (21.0-32.0); Chloride 100 meq/L (98-107); Glomerular Filtration Rate Greater Than 89 mL/min (>89); Glucose,Random 88 mg/dL (74-106); Potassium 4.2 meq/L (3.5-5.1); Sodium 141 meq/L (136-145); Total Protein 7.1 g/dL (6.4-8.2)
[2018-05-06 07:58] LABS: Baso % (Auto) 0.2 % (0.0-2.0); Eos % (Auto) 0.1 % (0.0-4.0); Hematocrit 42.3 % (35.0-46.0); Hemoglobin 12.7 gm/dL (11.6-15.3); Lymph # (Auto) 1.4 th/mm3 (1.0-4.8); Mean Corpuscular Volume 66.8 fL (80.0-100.0); Mean Platelet Volume 9.4 fL (7.0-11.0); Mono # (Auto) 0.9 th/mm3 (0.0-0.9); Neut % (Auto) 79.7 % (16.0-70.0); Platelet Count 352 th/mm3 (150-450); Red Blood Count 6.34 mil/mm3 (4.00-5.30); Red Cell Distribution Width 17.4 % (11.6-17.2); White Blood Count 11.3 th/mm3 (4.0-11.0)
[2018-05-06 08:00] LABS: Mean Corpuscular HGB Conc 29.9 % (32.0-36.0)
[2018-05-06] MEDS: ALPRAZolam 0.5 MG Tablet PO SCH ×2 (09:16→21:12)
[2018-05-06] MEDS: Senna/Docusate Sodium 8.6/50 MG Tablet PO SCH ×2 (09:16→21:09)
[2018-05-06] MEDS: predniSONE 10 MG Tablet PO SCH ×3 (09:16→17:54)
[2018-05-06] MEDS: Benzonatate 100 MG Capsule PO PRN (10:55)
--- NOTE | 2018-05-06 14:04 | P.PN ---
Subjective Interval history: Follow up for fall, back/neck pain: pt. seen and examined, tearful, c/o severe pain-chest, back, neck. Family won't be home until tomorrow No cp, chronically sob with cough. No fever. No n/v/d Physical Exam Vital signs: Vital Signs 05/05/18 14:53 05/05/18 15:56 05/05/18 19:29 Temperature 97.9 F Pulse Rate 88 93 H 93 H Respiratory Rate 16 16 16 Blood Pressure 114/75 Pulse Oximetry 94 L 05/05/18 20:00 05/06/18 02:11 05/06/18 02:12 Temperature 98.7 F 98.7 F Pulse Rate 93 H 87 Respiratory Rate 18 20 Blood Pressure 136/83 119/66 Pulse Oximetry 93 L 92 L 92 L 05/06/18 05:30 05/06/18 08:00 05/06/18 08:14 Temperature 98.1 F 97.5 F L Pulse Rate 92 H 100 H 90 Respiratory Rate 20 18 24 Blood Pressure 112/73 152/71 H Pulse Oximetry 92 L 91 L 97 05/06/18 12:00 05/06/18 13:13 Temperature Pulse Rate 91 H 96 H Respiratory Rate 18 22 Blood Pressure 144/85 H Pulse Oximetry 97 Intake & Output 05/05/18 05/06/18 05/06/18 18:59 06:59 18:59 Intake Total 1200 / 1200 Balance 1200 / 1200 Intake: Oral 1200 / 1200 Other: # Voids 2 Date of Last Bowel Movement 05/05/18 Narrative: GENERAL: Middle-aged white female, thin built, appears older than stated age. SKIN: Focused skin assessment warm and dry. HEENT: PERRLA, EOMI. No scleral icterus or conjunctival pallor. No lid lag or facial droop. CARDIOVASCULAR: Regular rate and rhythm. No obvious murmurs to auscultation. No chest tenderness to palpation. RESPIRATORY: diminished, non productive cough. GASTROINTESTINAL: Abdomen soft, non-tender, nondistended. BS normal. MUSCULOSKELETAL: Extremities without clubbing, cyanosis, or edema. No obvious deformities. +thoracic paraspinal muscle tenderness to palpation NEUROLOGICAL: Awake, alert and oriented x4. No focal neurologic deficits. Moving both upper and lower extremities spontaneously. PSYCHIATRIC: Appropriate mood and affect. Insight and judgment normal. Results - Labs CBC & Chem 7: 11/13/18 06:01 05/06/18 06:01 Laboratory Results - last 24 hr 05/06/18 05/06/18 06:01 06:01 WBC 11.3 H RBC 6.34 H Hgb 12.7 Hct 42.3 MCV 66.8 L MCH 20.0 L MCHC 29.9 L RDW 17.4 H Plt Count 352 MPV 9.4 Neut % (Auto) 79.7 H Lymph % (Auto) 12.0 [place] % (Auto) 8.0 Eos % (Auto) 0.1 Baso % (Auto) 0.2 Neut # (Auto) 9.0 H Lymph # (Auto) 1.4 [place] # (Auto) 0.9 Eos # (Auto) 0.0 Baso # (Auto) 0.0 WBC Differential . Differential Comment Auto diff final Sodium 141 Potassium 4.2 D Chloride 100 Carbon Dioxide 33.8 H Anion Gap 7 BUN 6 L Creatinine 0.54 Estimated GFR Greater than 89 Random Glucose 88 Calcium 8.8 Total Bilirubin 1.0 AST 22 ALT 16 Alkaline Phosphatase 75 Total Protein 7.1 Albumin 3.7 Assessment and Plan - Assessment (1) Fall Code(s): W19.XXXA - Unspecified fall, initial encounter Status: Acute (2) Thoracic compression fracture Code(s): S22.000A - Wedge compression fracture of unspecified thoracic vertebra , initial encounter for closed fracture Status: Acute (3) Rib fractures Code(s): S22.39XA - Fracture of one rib, unspecified side, initial encounter for closed fracture Status: Acute (4) Clavicular fracture Code(s): S42.009A - Fracture of unspecified part of unspecified clavicle, initial encounter for closed fracture Status: Acute (5) COPD (chronic obstructive pulmonary disease) Code(s): J44.9 - Chronic obstructive pulmonary disease, unspecified Status: Acute (6) Tobacco abuse Code(s): Z72.0 - Tobacco use Status: Acute - Plan This is a 53-year-old female with a PMH of COPD, O2 Dependent and Tobacco Abuse who presented to the ER with complaints of ongoing chest and back pain after a fall 2 days ago. Pt states she was walking down the stairs from her sister in laws apartment and tripped on the wet stairs since it had rained that night. States she fell approx 6 steps, unsure if she hit her head but denies LOC. Did not seek medical attention at that time. CXR with multiple compression fracture deformities of upper to mid thoracic spine again seen in comparison to study from 10/06/2017. CT Chest with acute posterior ninth 10th 11th rib fractures, nondisplaced, multiple thoracic body compression fractures, new fractures at T4 and T9, no bony retropulsion, nondisplaced right clavicular head fracture, mild pulmonary emphysema, no pneumothorax. CT C-spine negative. CT Head negative. Fall: s/p mechanical fall down approx 6 steps 2 days ago, she is unsure if she sustained head trauma, but no LOC. CT Head/C-Spine w/ no acute findings, images reviewed. -PT daily Thoracic Compression Fx: CT Chest w/ multiple thoracic spine compression fractures, similar to imaging from 09/2017, w/ new T4 and T9 fractures, no retropulsion, images reviewed. Pt denies h/o recurrent falls or trauma. -TLSO -PT for eval/tx -Continue with pain management, add Robaxin and Lidocaine. 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 -Analgesics as needed -IS q 2 Q wa Clavicular Fracture: Right. CT Chest w/ right clavicular fracture, non- displaced, images reviewed. No surgical intervention. -ordered right arm sling COPD: Chronic Respiratory Failure, s/p DuoNeb in ER Steroid dependent -Continue w/ DuoNeb prn as needed. -O2 Dependent, continue O2 -monitor sats. Tobacco Abuse -Pt counselled. -NicoDerm prn if needed. DVT Prophylaxis: SCD/Teds-add Heparin SQ Plan to dc tomorrow when family is available, not a safe dc home today. Code Status: Full code Discussed Condition With: RN, pt, CM Discharge Planning: DC home tomorrow
[2018-05-06] MEDS: Methocarbamol 500 MG Tablet PO SCH ×2 (15:03→21:12)
[2018-05-06] MEDS: Lidocaine 5% Patch T-DERMAL SCH (15:49)
--- NOTE | 2018-05-06 16:16 | US ---
EXAM DATE: 05/06/2018 3:31 PM EST AGE/SEX: 53 years / Female INDICATIONS: Palpable neck mass. CLINICAL DATA: This is the patient's initial encounter. Patient reports that signs and symptoms have been present for 1 day and indicates a pain score of 0/10. MEDICAL/SURGICAL HISTORY: Chronic obstructive pulmonary disease. Crohn's disease. O2 dependant. Thoracic compression fracture. Clavicular fracture. Appendectomy. Hysterectomy. section. Colon resection. COMPARISON: [facility] [place], CT CERVICAL SPINE W/O CONTRAST, 05/05/2018. . FINDINGS: No sonographic abnormality identified on the 2 provided images at site of palpable concern in the rig ht neck. CONCLUSION: No sonographic abnormality identified at site of palpable concern in the right neck. Electronically signed by: Tabby Teixeira MD 05/06/2018 4:14 PM EST
[2018-05-06] MEDS: Heparin - SQ 10,000 UNITS/ML Vial SQ SCH (21:10)
[2018-05-07] MEDS: Morphine Sulfate Inj 2 MG/ML Vial IV.PUSH PRN ×2 (02:59→06:49)
[2018-05-07] MEDS: Methocarbamol 500 MG Tablet PO SCH (05:24)
[2018-05-07] MEDS: Lidocaine 5% Patch T-DERMAL SCH (08:15)
[2018-05-07] MEDS: predniSONE 10 MG Tablet PO SCH ×2 (08:20→16:30)
[2018-05-07] MEDS: ALPRAZolam 0.5 MG Tablet PO SCH (08:20)
[2018-05-07] MEDS: Senna/Docusate Sodium 8.6/50 MG Tablet PO SCH (08:20)
[2018-05-07] MEDS: Heparin - SQ 10,000 UNITS/ML Vial SQ SCH (08:20)
[2018-05-07] MEDS: Benzonatate 100 MG Capsule PO PRN (08:23)
[2018-05-07] MEDS ORDERED: ALPRAZolam 0.5 MG Tablet PO PRN (09:18)
[2018-05-07] MEDS ORDERED: guaiFENesin/Dextromethorphan 200 MG/20 MG 10 ML UDC PO PRN (09:19)
--- NOTE | 2018-05-07 10:27 | P.PN ---
Subjective Interval history: Follow up for fall, back/neck pain: pt. seen and examined, has been able to move around better, able to put on vest herself. Pain increases with coughing, chronically short of breath due to history of COPD. No sputum. Complains of pain to chest wall, back, as well as neck. No fever. Wants to continue taking IV morphine. Informed that she will need to wean to oral narcotics. She is agreeable. Does not want to go home. Physical Exam Vital signs: Vital Signs 05/06/18 12:00 05/06/18 13:13 05/06/18 16:00 Temperature Pulse Rate 91 H 96 H 98 H Respiratory Rate 18 22 18 Blood Pressure 144/85 H 148/73 H Pulse Oximetry 97 94 L 05/06/18 19:00 05/06/18 20:00 05/07/18 04:00 Temperature 97.6 F 98.3 F Pulse Rate 95 H 97 H 87 Respiratory Rate 20 20 20 Blood Pressure 126/67 137/71 Pulse Oximetry 96 94 L 05/07/18 04:58 05/07/18 08:00 Temperature 97.8 F Pulse Rate 85 86 Respiratory Rate 20 16 Blood Pressure 126/78 Pulse Oximetry 96 Intake & Output 05/06/18 05/07/18 05/07/18 18:59 06:59 18:59 Intake Total 1200 / 1200 900 / 900 Balance 1200 / 1200 900 / 900 Intake: IV 100 / 100 Oral 600 / 600 800 / 800 Oral Supplement 600 / 600 Other: Date of Last Bowel Movement 05/06/18 Narrative: GENERAL: Middle-aged white female, thin built, appears older than stated age. SKIN: Focused skin assessment warm and dry. HEENT: PERRLA, EOMI. No scleral icterus or conjunctival pallor. No lid lag or facial droop. CARDIOVASCULAR: Regular rate and rhythm. No obvious murmurs to auscultation. No chest tenderness to palpation. RESPIRATORY: diminished, non productive cough. GASTROINTESTINAL: Abdomen soft, non-tender, nondistended. BS normal. MUSCULOSKELETAL: Extremities without clubbing, cyanosis, or edema. No obvious deformities. +thoracic paraspinal muscle tenderness to palpation NEUROLOGICAL: Awake, alert and oriented x4. No focal neurologic deficits. Moving both upper and lower extremities spontaneously. PSYCHIATRIC: Appropriate mood and affect. Insight and judgment normal. Results - Labs CBC & Chem 7: 05/06/18 06:01 05/06/18 06:01 - Imaging Impressions Neck Ultrasound 05/06/18 00:00 CONCLUSION: No sonographic abnormality identified at site of palpable concern in the right neck. Assessment and Plan - Assessment (1) Fall Code(s): W19.XXXA - Unspecified fall, initial encounter Status: Acute (2) Thoracic compression fracture Code(s): S22.000A - Wedge compression fracture of unspecified thoracic vertebra , initial encounter for closed fracture Status: Acute (3) Rib fractures Code(s): S22.39XA - Fracture of one rib, unspecified side, initial encounter for closed fracture Status: Acute (4) Clavicular fracture Code(s): S42.009A - Fracture of unspecified part of unspecified clavicle, initial encounter for closed fracture Status: Acute (5) COPD (chronic obstructive pulmonary disease) Code(s): J44.9 - Chronic obstructive pulmonary disease, unspecified Status: Acute (6) Tobacco abuse Code(s): Z72.0 - Tobacco use Status: Acute - Plan This is a 53-year-old female with a PMH of COPD, O2 Dependent and Tobacco Abuse who presented to the ER with complaints of ongoing chest and back pain after a fall 2 days ago. Pt states she was walking down the stairs from her sister in laws apartment and tripped on the wet stairs since it had rained that night. States she fell approx 6 steps, unsure if she hit her head but denies LOC. Did not seek medical attention at that time. CXR with multiple compression fracture deformities of upper to mid thoracic spine again seen in comparison to study from 10/06/2017. CT Chest with acute posterior ninth 10th 11th rib fractures, nondisplaced, multiple thoracic body compression fractures, new fractures at T4 and T9, no bony retropulsion, nondisplaced right clavicular head fracture, mild pulmonary emphysema, no pneumothorax. CT C-spine negative. CT Head negative. Fall: s/p mechanical fall down approx 6 steps 2 days ago, she is unsure if she sustained head trauma, but no LOC. CT Head/C-Spine w/ no acute findings, images reviewed. -PT daily Thoracic Compression Fx: CT Chest w/ multiple thoracic spine compression fractures, similar to imaging from 09/2017, w/ new T4 and T9 fractures, no retropulsion, images reviewed. Pt denies h/o recurrent falls or trauma. -TLSO -PT for eval/tx -Continue with pain management, Robaxin and Lidocaine. 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 -Analgesics as needed -IS q 2 Q wa Clavicular Fracture: Right. CT Chest w/ right clavicular fracture, non- displaced, images reviewed. No surgical intervention. -Right arm sling Right neck pain, cervical spine CT negative Tenderness to palpation to right neck area Ultrasound neck done, no abnormalities noted. COPD: Chronic Respiratory Failure, s/p DuoNeb in ER Steroid dependent -Continue w/ DuoNeb prn as needed. -O2 Dependent, continue O2 -monitor sats. Tobacco Abuse -Pt counselled. -NicoDerm prn if needed. DVT Prophylaxis: SCD/Teds-add Heparin SQ Pt. able to put on TLSO vest. Able to move better. Family won't be back until Saturday, she is calling a friend [facility] today F/U PCP in 1-2 weeks Diet-heart healthy Activity-right arm in sling, activity as tolerated. Counselled to quit smoking Code Status: Full code Discussed Condition With: RN, pt, CM Discharge Planning: [facility] today [employer] Prescription Drug Monitoring Database has been queried and verified prior to prescribing the controlled substance. Acute pain exception. This patient has normal, predicted, physiological, and time limited response to an adverse mechanical stimulus associated with surgery, trauma, or acute illness as described in my notes. There is a lack of alternative treatment options other than to include the prescribed narcotic treatment for this condition. Last rx was on 12/24/2017, hydrocodone #12
[2018-05-07 11:38] VITALS: RESP 20
[2018-05-07] MEDS ORDERED: Budesonide-Formoterol 160/4.5 MCG 6 GM Inhaler INH SCH (12:00)
[2018-05-07 12:06] VITALS: BP 130/61; PULSE 100; TEMP 97.6; O2SAT 95
--- NOTE | 2018-05-07 16:55 | P.DS ---
Date of admission: 05/05/18 02:41 Primary care physician: No Primary Care Physician Attending physician on discharge: Yang Aubreykatherin Anticipated date of discharge: 05/07/18 Brief History from admission: This is a 53-year-old female with a PMH of COPD, O2 Dependent and Tobacco Abuse who presented to the ER with complaints of ongoing chest and back pain after a fall 2 days ago. Pt states she was walking down the stairs from her sister in [facility], [place] apartment and tripped on the wet stairs since it had rained that night. States she fell approx 6 steps, unsure if she hit her head but denies LOC. Did not seek medical attention at that time. Presents tonight for ongoing chest and back pain, pain is sharp, constant, 10/10, non-radiating, worse w/ movement. Denies SOB. On arrival, BP 138/72, HR 88, O2 sat 98% on RA, Afebrile. WBC 11.3. Chemistry essentially unremarkable. CXR with multiple compression fracture deformities of upper to mid thoracic spine again seen in comparison to study from 10/06/2017. CT Chest with acute posterior ninth 10th 11th rib fractures, nondisplaced, multiple thoracic body compression fractures, new fractures at T4 and T9, no bony retropulsion, nondisplaced right clavicular head fracture, mild pulmonary emphysema, no pneumothorax. CT C-spine negative. CT Head negative. DS: Diagnosis - Discharge Diagnosis (1) Fall Status: Acute (2) Thoracic compression fracture Status: Acute (3) Rib fractures Status: Acute (4) Clavicular fracture Status: Acute (5) COPD (chronic obstructive pulmonary disease) Status: Acute (6) Tobacco abuse Status: Acute DS: Medications - Discharge Medications Prescriptions: methocarbamol 500 mg PO Q8HR 7 Days #21 tab oxycodone-acetaminophen 1 tab PO Q4H PRN 3 Days #18 tab PRN Reason: PAIN 4 TO 6 DS: Summary Hospital Course: This is a 53-year-old female with a PMH of COPD, O2 Dependent and Tobacco Abuse who presented to the ER with complaints of ongoing chest and back pain after a fall 2 days ago. Pt states she was walking down the stairs from her sister in [facility], [place] apartment and tripped on the wet stairs since it had rained that night. States she fell approx 6 steps, unsure if she hit her head but denies LOC. Did not seek medical attention at that time. CXR with multiple compression fracture deformities of upper to mid thoracic spine again seen in comparison to study from 10/06/2017. CT Chest with acute posterior ninth 10th 11th rib fractures, nondisplaced, multiple thoracic body compression fractures, new fractures at T4 and T9, no bony retropulsion, nondisplaced right clavicular head fracture, mild pulmonary emphysema, no pneumothorax. CT C-spine negative. CT Head negative. Fall: s/p mechanical fall down approx 6 steps 2 days ago, she is unsure if she sustained head trauma, but no LOC. CT Head/C-Spine w/ no acute findings, images reviewed. -PT daily ordered. Thoracic Compression Fx: CT Chest w/ multiple thoracic spine compression fractures, similar to imaging from 09/2017, w/ new T4 and T9 fractures, no retropulsion, images reviewed. Pt denies h/o recurrent falls or trauma. -TLSO ordered. -PT for eval/tx -Put on pain management, Robaxin and Lidocaine. -pt able to put on TLSO brace with assist, ambulating fairly well. 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 -Analgesics as needed -IS q 2 Q wa Clavicular Fracture: Right. CT Chest w/ right clavicular fracture, non- displaced, images reviewed. No surgical intervention. -Right arm sling in place Right neck pain, cervical spine CT negative Tenderness to palpation to right neck area Ultrasound neck done, no abnormalities noted. COPD: Chronic Respiratory Failure, s/p DuoNeb in ER Steroid dependent -Continue w/ DuoNeb prn as needed. -O2 Dependent, continue O2 -monitored sats. Tobacco Abuse -Pt counselled. -NicoDerm prn if needed. DVT Prophylaxis: SCD/Teds-add Heparin SQ CM following, no payor source. PT worked with pt. Pain better controlled. Discharge home today F/U PCP Diet -heart healthy Activity-as tolerated - Time Spent with Patient Total time spent providing and/or coordinating discharge services: 40 MINUTES Greater than 30 minutes - Quality: VTE Deep Vein Thrombosis/Pulmonary Embolism Present on Admission: No Exam Vital signs: Vital Signs 05/06/18 19:00 05/06/18 20:00 05/07/18 04:00 Temperature 97.6 F 98.3 F Pulse Rate 95 H 97 H 87 Respiratory Rate 20 20 20 Blood Pressure 126/67 137/71 Pulse Oximetry 96 94 L 05/07/18 04:58 05/07/18 08:00 05/07/18 11:37 Temperature 97.8 F Pulse Rate 85 86 94 H Respiratory Rate 20 16 20 Blood Pressure 126/78 Pulse Oximetry 96 97 05/07/18 12:00 Temperature 97.6 F Pulse Rate 100 H Respiratory Rate 20 Blood Pressure 130/61 Pulse Oximetry 95 Intake & Output 05/06/18 05/07/18 05/07/18 18:59 06:59 18:59 Intake Total 1200 / 1200 900 / 900 Balance 1200 / 1200 900 / 900 Intake: IV 100 / 100 Oral 600 / 600 800 / 800 Oral Supplement 600 / 600 Other: Date of Last Bowel Movement 05/06/18 Results Procedures completed during hospitalization: NONE - Impressions ITS Impressions Chest X-Ray 05/05/18 00:16 CONCLUSION: 1. No acute cardiopulmonary disease identified. 2. Multiple compression fracture deformities of the upper to mid thoracic spine again seen. One additional level involved when compared to the prior study of 10/06/2017. No evidence of bony retropulsion. Chest CT 05/05/18 01:21 CONCLUSION: 1. Acute posterior ninth, 10th, 11th rib fractures. Nondisplaced. 2. Multiple thoracic spine vertebral body compression fractures again seen. New fractures at T4 and T9 noted. No evidence of bony retropulsion. 3. Nondisplaced right clavicular head fracture adjacent to the sternoclavicular joint. 4. Mild pulmonary emphysema. No evidence of pleural effusion or pneumothorax. 5. Mild bilateral atelectasis unchanged. Cervical Spine CT 05/05/18 02:23 CONCLUSION: 1. No evidence of fracture. 2. Degenerative findings at C3-4. Head CT 05/05/18 02:23 CONCLUSION: No acute intracranial findings. . Neck Ultrasound 05/06/18 00:00 CONCLUSION: No sonographic abnormality identified at site of palpable concern in the right neck. Discharge Plan - Discharge Disposition Patient Disposition: 01 Discharge Home - Discharge Condition Condition: Stable - Discharge Order Discharge Orders: Discharge Order (Routine); Ordered 05/07/18 Ordered By: Laura Avendaño - Discharge Details Anticipated Discharge Date: 05/07/18 - Physicians Team Primary Care Provider: Primary Care Caroline Crenshaw Attending Provider: Yang Myers
== END 2018-05-07 13:15 | disposition home or self-care (01) ==
LOC: NEPC 21:30 → NEDA 21:30 → NEPGCP 05-05 05:19
PROVIDERS: ADMIT Internal Medicine; ATTEND Internal Medicine
DX: Y93.01 Activity, walking, marching and hiking; S42.001A Fracture of unspecified part of right clavicle, initial encounter for closed fracture; F17.210 Nicotine dependence, cigarettes, uncomplicated; Z90.49 Acquired absence of other specified parts of digestive tract; Z90.710 Acquired absence of both cervix and uterus; J96.10 Chronic respiratory failure, unspecified whether with hypoxia or hypercapnia; J44.9 Chronic obstructive pulmonary disease, unspecified; J98.11 Atelectasis; G89.29 Other chronic pain; S22.079A Unspecified fracture of T9-T10 vertebra, initial encounter for closed fracture; Z98.891 History of uterine scar from previous surgery; W10.9XXA Fall (on) (from) unspecified stairs and steps, initial encounter; S22.41XA Multiple fractures of ribs, right side, initial encounter for closed fracture; K50.90 Crohn's disease, unspecified, without complications; Z79.891 Long term (current) use of opiate analgesic; S22.049A Unspecified fracture of fourth thoracic vertebra, initial encounter for closed fracture; Z79.52 Long term (current) use of systemic steroids; Z99.81 Dependence on supplemental oxygen; R22.1 Localized swelling, mass and lump, neck

== ENCOUNTER 2018-06-12 09:04 | Inpatient (IN) ==
[2018-06-12] MEDS ORDERED: MethylPREDNISolone Sod Succinate Inj 125 MG/2 ML Vial IV.PUSH ONE (09:14)
--- NOTE | 2018-06-12 09:25 | ED ---
HPI General Chief Complaint: Respiratory Symptoms Stated Complaint: Nausea/SOB/Chest Pain Complaint Time Seen by Provider: 06/12/18 09:14 Source: patient Mode of arrival: ambulatory Limitations: other (clinical acuity) History of Present Illness 53-year-old female presents with shortness of breath that is been aggressive over the past couple of days. She is talking in short sentences and having a hard time talking on original history so history is limited. Related Data Home Medications Medication Instructions Recorded Confirmed albuterol sulfate 2.5 mg INHALATION Q4H PRN 01/10/18 06/12/18 alprazolam [Xanax] 0.5 mg PO BID 01/10/18 06/12/18 nebulizers 01/10/18 05/20/18 prednisone 30 mg PO BID 01/10/18 06/12/18 zolpidem 10 mg SUBLINGUAL HS PRN 05/11/18 06/12/18 Previous Rx's Medication Instructions Recorded oxycodone-acetaminophen [Percocet] 1 tab PO Q4-6H PRN #12 tab 05/11/18 Allergies Allergy/AdvReac Type Severity Reaction Status Date / Time No Known Allergies Allergy Verified 06/12/18 09:14 Review of Systems ROS Unobtainable ROS Unobtainable: other (Clinical acuity) [facility] Medical History Medical History Back pain (Acute) COPD (chronic obstructive pulmonary disease) (Acute) Crohn's disease (Acute) FH: cholecystectomy (Acute) Hx of hysterectomy (Acute) Surgical History Surgical History Hx of appendectomy (Acute) Hx of section (Acute) S/P colon resection (Acute) Social History Social History Substance History: No History of Abuse Second Hand Smoke Exposure: Yes Smoking Status: Former smoker Tobacco Type: Cigarettes How Often Do You Have a Drink Containing Alcohol: 2 to 4 times a month Recent Travel in [facility] within the Last 8 Weeks: No Recent Out of Country Travel within the Last 8 Weeks: No Immunization History Tetanus Immunization: Unsure Exam Narrative Exam Narrative: General: Thin ill-appearing female, focused exam performed and limited based on clinical acuity Skin: No rash Eyes: Pupils equal Neck: No JVD Cardiovascular: Regular rate and rhythm Respiratory: Increased respiratory effort noted, decreased aeration bilaterally , tripod positioning Abdomen: Soft, nontender, nondistended Extremities: No edema noted Neuro: Moves all extremities, talks in short sentences, awake Course Reevaluation(s) Reevaluation #1: Patient given a dose of Ativan to coordinate BiPAP Reevaluation #2: Patient feeling better on BiPAP. Agrees to admission. Given leukocytosis was given antibiotics Consultations Consultation #1: midlevel with dr ruiz agrees to admit Initial Documented Vital Signs Pulse Rate 158 H 06/12/18 09:07 Pulse Oximetry 74 L 06/12/18 09:07 Last Documented Vital Signs Pulse Rate 94 H 06/12/18 10:45 Respiratory Rate 21 06/12/18 10:45 Blood Pressure 147/63 H 06/12/18 10:45 Pulse Oximetry 98 06/12/18 10:45 Critical Care Time Critical Care Time: Yes Total Critical Care Time: 45 Attestation: Aggregate critical care time was 45 minutes. Time to perform other separately billable procedures was not included in the critical care time. My time did not include minutes spent treating any other patients simultaneously or on activities that did not directly contribute to the patient's treatment. The services I provided to this patient were to treat and/or prevent clinically significant deterioration that could result in: Respiratory failure, I provided critical care services requiring my management, as noted below: Chart data review, documentation time, medication orders and management, vital sign assessments/reviewing monitor data, ordering and reviewing lab tests, ordering and interpreting/reviewing x-rays and diagnostic studies, care of the patient and discussion of the patient with the admitting physicians. Medical Decision Making MDM Narrative Medical decision making narrative: We will check blood work, chest x-ray and dose with duo nebs and Solu-Medrol and reevaluate Medical Screen Exam Complete: Yes Emergency Medical Condition: Yes Differential Diagnosis Differential Diagnosis: Pneumothorax, COPD, pneumonia, renal failure, anemia Lab Data Lab results reviewed: Yes I reviewed the patient's lab results. Result diagrams: 06/12/18 09:45 06/12/18 09:45 Lab Results 06/12/18 06/12/18 06/12/18 Range/Units 09:45 09:45 09:45 WBC 24.2 H (4.0-11.0) th/mm3 RBC 5.95 H (4.00-5.30) mil/mm3 Hgb 12.3 (11.6-15.3) gm/dL Hct 39.9 (35.0-46.0) % MCV 67.0 L (80.0-100.0) fL MCH 20.7 L (27.0-34.0) pg MCHC 30.9 L (32.0-36.0) % RDW 17.1 (11.6-17.2) % Plt Count 326 (150-450) th/mm3 MPV 9.5 (7.0-11.0) fL Neut % (Auto) 85.0 H (16.0-70.0) % Lymph % (Auto) 6.6 L (9.0-44.0) % Tyrrell % (Auto) 7.7 (0.0-8.0) % Eos % (Auto) 0.2 (0.0-4.0) % Baso % (Auto) 0.5 (0.0-2.0) % Neut # (Auto) 20.6 H (1.8-7.7) th/mm3 Lymph # (Auto) 1.6 (1.0-4.8) th/mm3 Tyrrell # (Auto) 1.9 H (0.0-0.9) th/mm3 Eos # (Auto) 0.1 (0.0-0.4) th/mm3 Baso # (Auto) 0.1 (0.0-0.2) th/mm3 WBC Differential . Differential Comment Auto diff final PT 10.8 (9.8-11.6) sec INR 1.1 Ratio APTT 27.1 (23.4-31.7) sec Puncture Site Patient Temperature O2 Saturation (90-100) % ABG pH (7.380-7.420) ABG pCO2 (38-42) mmHg ABG pO2 (61-120) mmHg ABG HCO3 (22-26) mmol/L ABG O2 Content (12.0-20.0) Vol % ABG Base Excess (-2-2) mmol/L ABG Methemoglobin (0-2) % Manohar Test Hemoglobin (12.0-16.0) G/DL Carboxyhemoglobin (0-4) % O2 Delivery Device Vent Setting Inspired O2 % Critical Value Sodium 139 (136-145) meq/L Potassium 3.2 L (3.5-5.1) meq/L Chloride 99 (98-107) meq/L Carbon Dioxide 33.7 H (21.0-32.0) meq/L Anion Gap 6 (5-15) meq/L BUN 9 (7-18) mg/dL Creatinine 0.54 (0.50-1.00) mg/dL Estimated GFR Greater than 89 (>89) mL/min Random Glucose 95 (74-106) mg/dL Lactic Acid (0.4-2.0) mmol/L Calcium 7.9 L (8.5-10.1) mg/dL Magnesium 1.8 (1.5-2.5) mg/dL Total Bilirubin 2.1 H (0.2-1.0) mg/dL AST 30 (15-37) U/L ALT 24 (10-53) U/L Alkaline Phosphatase 73 (45-117) U/L Total Creatine Kinase 95 (26-192) U/L Troponin I 0.03 (0.02-0.05) ng/mL B-Natriuretic Peptide (0-100) pg/mL Total Protein 6.6 (6.4-8.2) g/dL Albumin 3.6 (3.4-5.0) g/dL 06/12/18 06/12/18 06/12/18 Range/Units 09:45 09:45 10:20 WBC (4.0-11.0) th/mm3 RBC (4.00-5.30) mil/mm3 Hgb (11.6-15.3) gm/dL Hct (35.0-46.0) % MCV (80.0-100.0) fL MCH (27.0-34.0) pg MCHC (32.0-36.0) % RDW (11.6-17.2) % Plt Count (150-450) th/mm3 MPV (7.0-11.0) fL Neut % (Auto) (16.0-70.0) % Lymph % (Auto) (9.0-44.0) % Tyrrell % (Auto) (0.0-8.0) % Eos % (Auto) (0.0-4.0) % Baso % (Auto) (0.0-2.0) % Neut # (Auto) (1.8-7.7) th/mm3 Lymph # (Auto) (1.0-4.8) th/mm3 Tyrrell # (Auto) (0.0-0.9) th/mm3 Eos # (Auto) (0.0-0.4) th/mm3 Baso # (Auto) (0.0-0.2) th/mm3 WBC Differential Differential Comment PT (9.8-11.6) sec INR Ratio APTT (23.4-31.7) sec Puncture Site Patient Temperature O2 Saturation (90-100) % ABG pH (7.380-7.420) ABG pCO2 (38-42) mmHg ABG pO2 (61-120) mmHg ABG HCO3 (22-26) mmol/L ABG O2 Content (12.0-20.0) Vol % ABG Base Excess (-2-2) mmol/L ABG Methemoglobin (0-2) % Manohar Test Hemoglobin (12.0-16.0) G/DL Carboxyhemoglobin (0-4) % O2 Delivery Device Vent Setting Inspired O2 % Critical Value Sodium (136-145) meq/L Potassium (3.5-5.1) meq/L Chloride (98-107) meq/L Carbon Dioxide (21.0-32.0) meq/L Anion Gap (5-15) meq/L BUN (7-18) mg/dL Creatinine (0.50-1.00) mg/dL Estimated GFR (>89) mL/min Random Glucose (74-106) mg/dL Lactic Acid 0.9 (0.4-2.0) mmol/L Calcium (8.5-10.1) mg/dL Magnesium Cancelled (1.5-2.5) mg/dL Total Bilirubin (0.2-1.0) mg/dL AST (15-37) U/L ALT (10-53) U/L Alkaline Phosphatase (45-117) U/L Total Creatine Kinase Cancelled (26-192) U/L Troponin I (0.02-0.05) ng/mL B-Natriuretic Peptide 358 H (0-100) pg/mL Total Protein (6.4-8.2) g/dL Albumin (3.4-5.0) g/dL 12/20/18 Range/Units 10:30 WBC (4.0-11.0) th/mm3 RBC (4.00-5.30) mil/mm3 Hgb (11.6-15.3) gm/dL Hct (35.0-46.0) % MCV (80.0-100.0) fL MCH (27.0-34.0) pg MCHC (32.0-36.0) % RDW (11.6-17.2) % Plt Count (150-450) th/mm3 MPV (7.0-11.0) fL Neut % (Auto) (16.0-70.0) % Lymph % (Auto) (9.0-44.0) % Tyrrell % (Auto) (0.0-8.0) % Eos % (Auto) (0.0-4.0) % Baso % (Auto) (0.0-2.0) % Neut # (Auto) (1.8-7.7) th/mm3 Lymph # (Auto) (1.0-4.8) th/mm3 Tyrrell # (Auto) (0.0-0.9) th/mm3 Eos # (Auto) (0.0-0.4) th/mm3 Baso # (Auto) (0.0-0.2) th/mm3 WBC Differential Differential Comment PT (9.8-11.6) sec INR Ratio APTT (23.4-31.7) sec Puncture Site Left radial Patient Temperature 98.6 O2 Saturation 86 L* (90-100) % ABG pH 7.40 (7.380-7.420) ABG pCO2 59 H* (38-42) mmHg ABG pO2 65 (61-120) mmHg ABG HCO3 36 H (22-26) mmol/L ABG O2 Content 14.4 (12.0-20.0) Vol % ABG Base Excess 10.4 H (-2-2) mmol/L ABG Methemoglobin 0.6 (0-2) % Manohar Test Present Hemoglobin 12.0 (12.0-16.0) G/DL Carboxyhemoglobin 6.1 H* (0-4) % O2 Delivery Device Bipap Vent Setting [id number]/[id number] Inspired O2 40 % Critical Value Yes Sodium (136-145) meq/L Potassium (3.5-5.1) meq/L Chloride (98-107) meq/L Carbon Dioxide (21.0-32.0) meq/L Anion Gap (5-15) meq/L BUN (7-18) mg/dL Creatinine (0.50-1.00) mg/dL Estimated GFR (>89) mL/min Random Glucose (74-106) mg/dL Lactic Acid (0.4-2.0) mmol/L Calcium (8.5-10.1) mg/dL Magnesium (1.5-2.5) mg/dL Total Bilirubin (0.2-1.0) mg/dL AST (15-37) U/L ALT (10-53) U/L Alkaline Phosphatase (45-117) U/L Total Creatine Kinase (26-192) U/L Troponin I (0.02-0.05) ng/mL B-Natriuretic Peptide (0-100) pg/mL Total Protein (6.4-8.2) g/dL Albumin (3.4-5.0) g/dL Imaging Data Attestation: I personally reviewed and interpreted this imaging study as follows : Radiologist's impression: Chest X-Ray 06/12/18 09:14 CONCLUSION: No acute cardiopulmonary abnormality is identified. Background changes are characteristic of emphysema. Discharge Plan Discharge Disposition Patient Disposition: ED Admit(ED Internal Use Only) Discharge Order Discharge Orders: ED Use Only Admit Order (Routine); Ordered 06/12/18 Ordered By: Deisi Colin Discharge Details Diagnosis: Acute exacerbation of chronic obstructive pulmonary disease (COPD), Respiratory failure Physicians Team ED Provider: Deisi Colin Primary Care Provider: Primary Care Kenneyi,Caroline Rxs /Orders / Referrals /Forms Prescriptions: No Action prednisone 10 mg Tablet 30 mg PO BID RF: 0 albuterol sulfate 2.5 mg /3 mL (0.083 %) Solution For Nebulization 2.5 mg INHALATION Q4H PRN (Reason: Shortness Of Breath) RF: 0 alprazolam [Xanax] 0.5 mg Tablet 0.5 mg PO BID RF: 0 nebulizers Misc RF: 0 zolpidem 10 mg Tablet, Sublingual 10 mg Sublingual HS PRN (Reason: Sleep) RF: 0 oxycodone-acetaminophen [Percocet] 5-325 mg tablet 1 tab PO Q4-6H PRN (Reason: pain) Qty: 12 RF: 0 Discharge Interventions Interventions: Vital Signs Last Done: 06/12/18 10:45 Status ED Status: Admitted Patient
[2018-06-12 10:08] LABS: Baso # (Auto) 0.1 th/mm3 (0.0-0.2); Baso % (Auto) 0.5 % (0.0-2.0); Eos # (Auto) 0.1 th/mm3 (0.0-0.4); Eos % (Auto) 0.2 % (0.0-4.0); Hematocrit 39.9 % (35.0-46.0); Hemoglobin 12.3 gm/dL (11.6-15.3); Lymph # (Auto) 1.6 th/mm3 (1.0-4.8); Lymph % (Auto) 6.6 % (9.0-44.0); Mean Corpuscular HGB Conc 30.9 % (32.0-36.0); Mean Corpuscular Hemoglobin 20.7 pg (27.0-34.0); Mean Platelet Volume 9.5 fL (7.0-11.0); Mono # (Auto) 1.9 th/mm3 (0.0-0.9); Mono % (Auto) 7.7 % (0.0-8.0); Neut # (Auto) 20.6 th/mm3 (1.8-7.7); Platelet Count 326 th/mm3 (150-450); Red Blood Count 5.95 mil/mm3 (4.00-5.30); Red Cell Distribution Width 17.1 % (11.6-17.2); White Blood Count 24.2 th/mm3 (4.0-11.0)
[2018-06-12 10:18] LABS: Activated Partial Thrombo Time 27.1 sec (23.4-31.7); INR 1.1 Ratio; Prothrombin Time 10.8 sec (9.8-11.6)
--- NOTE | 2018-06-12 10:21 | XR ---
EXAM DATE: 06/12/2018 10:16 AM EST AGE/SEX: 53 years / Female INDICATIONS: Shortness of breath. CLINICAL DATA: This is the patient's initial encounter. Patient reports that signs and symptoms have been present for 1 day and indicates a pain score of 3/10. MEDICAL/SURGICAL HISTORY: Asthma. Chronic obstructive pulmonary disease. Crohn disease. . Leo endectomy. Hysterectomy. Colon resection. COMPARISON: [facility], CHEST 1V SINGLE AP, 05/11/2018. . FINDINGS: Portable AP view of the chest demonstrates a normal-sized cardiac silhouette with calcification of th e aorta. Lungs are hyperinflated with flattening of the hemidiaphragms. No pleural effusion, airspace consolidation, or pneumothorax is identified. The bones and soft tissues demonstrate no acute abnorm ality. EKG lines overlie the patient. CONCLUSION: No acute cardiopulmonary abnormality is identified. Background changes are characteristic of emphysem a. Electronically signed by: Jose Roberto Urrutia MD Board Certified Radiologist 06/12/2018 10:20 AM EST
[2018-06-12 10:24] LABS: Albumin 3.6 g/dL (3.4-5.0); Anion Gap 6 meq/L (5-15); Aspartate Aminotransferase 30 U/L (15-37); Blood Urea Nitrogen 9 mg/dL (7-18); Calcium 7.9 mg/dL (8.5-10.1); Carbon Dioxide 33.7 meq/L (21.0-32.0); Chloride 99 meq/L (98-107); Glomerular Filtration Rate Greater Than 89 mL/min (>89); Glucose,Random 95 mg/dL (74-106); Magnesium 1.8 mg/dL (1.5-2.5); Potassium 3.2 meq/L (3.5-5.1); Sodium 139 meq/L (136-145)
[2018-06-12 10:29] LABS: Alanine Aminotransferase 24 U/L (10-53); Alkaline Phosphatase 73 U/L (45-117); Total Protein 6.6 g/dL (6.4-8.2); Troponin I 0.03 ng/mL (0.02-0.05)
[2018-06-12 10:30] LABS: Creatine Kinase 95 U/L (26-192)
[2018-06-12] MEDS ORDERED: Ketorolac Inj 30 MG/ML (IVP) Vial IV.PUSH ONE (10:33)
[2018-06-12 10:43] LABS: ABG Base Excess 10.4 mmol/L (-2-2); ABG PCO2 59 mmHg (38-42); ABG PO2 65 mmHg (61-120)
[2018-06-12] MEDS ORDERED: Sod Chloride 0.9% Inj 1,000 ML IV.CONT SCH (12:00)
--- NOTE | 2018-06-12 12:16 | P.HPIM ---
History of Present Illness Service: [facility] Primary Care Physician: No Primary Care Physician Chief Complaint: shortness of breath History of Present Illness: Patient is a 53-year-old female with a past medical history significant for COPD on home O2, tobacco abuse, and recent fall injury with thoracic spine compression, rib and clavicular fractures 04/2018. At the time of evaluation patient is deemed to be a poor historian secondary to recent Ativan administration. History was obtained from RN, ED physician as well as chart review. RN states patient was extremely anxious after being placed on BiPAP and she received Ativan in order to help calm her down. Patient is resting in bed in no acute distress. ED physician as well as RN stated that on initial presentation patient was severely hypoxic with a O2 sat of 75%, tachypneic and sternal retractions. Patient had stated that she was running low on her home oxygen. Her shortness of breath started to progressively worsen 2 days prior to presentation. Patient's white blood cell count was elevated and 24.2. Her serum potassium level is low and 3.2. Chest x-ray shows no acute cardiopulmonary abnormality and background changes are consistent with emphysema. Patient was placed on BIPAP with IPAP of 12/EPAP 5 and an ABG was obtained that showed a pH of 7.4, O2 sat 86%, pCO2 59, HCO3 36. Patient does not appear in any acute distress at time of examination. She is sedated and does not open eyes to verbal stimuli or gentle sternal rub, however, she does withdraw from pain. Patient is being admitted to [facility] under the care of the hospitalist service. Inpatient Certification Inpatient Certification: I certify that the inpatient services were ordered in accordance with Medicare regulations governing the order. This includes certification that hospital inpatient services are reasonable and necessary and in the case of services not specified as inpatient-only under 42 CFR 419.22(n), that they are appropriately provided as inpatient services in accordance to with the 2-midnight benchmark under 43 CFR 412.3(e) Estimated Total Length of Stay (Days): 3 Plans for Post Hospital Care: Home Review of Systems ROS Unobtainable: unobtainable due to mental condition (patient with recent Ativan administration secondary to severe anxiety) [facility] Medical History Medical History FH: cholecystectomy (Acute) Back pain (Acute) COPD (chronic obstructive pulmonary disease) (Acute) Crohn's disease (Acute) Hx of hysterectomy (Acute) Surgical History Surgical History Hx of appendectomy (Acute) Hx of section (Acute) S/P colon resection (Acute) Social History Social History Substance History: No History of Abuse Second Hand Smoke Exposure: Yes Smoking Status: Former smoker Tobacco Type: Cigarettes How Often Do You Have a Drink Containing Alcohol: 2 to 4 times a month Recent Travel in [facility] within the Last 8 Weeks: No Recent Out of Country Travel within the Last 8 Weeks: No Immunization History Tetanus Immunization: Unsure Medications and Allergies Allergies Allergy/AdvReac Type Severity Reaction Status Date / Time No Known Allergies Allergy Verified 06/12/18 09:14 Home Medications Medication Instructions Recorded Confirmed Type albuterol sulfate 2.5 mg INHALATION Q4H PRN 01/10/18 06/12/18 History alprazolam [Xanax] 0.5 mg PO BID 01/10/18 06/12/18 History nebulizers 01/10/18 05/20/18 History prednisone 30 mg PO BID 01/10/18 06/12/18 History zolpidem 10 mg SUBLINGUAL HS PRN 05/11/18 06/12/18 History Active Medications: Active Medications Acetaminophen (Tylenol) 650 mg PO Q6H PRN PRN Reason: PAIN 1-10 AND/OR FEVER >101F Albuterol (Duoneb Neb (Laura)) 1 ampul NEB Q4HR NEB LAURA Last Admin: 06/12/18 12:13 Dose: 1 ampul Albuterol (Albuterol Neb (Prn)) 2.5 mg NEB Q2HR NEB PRN PRN Reason: SHORTNESS OF BREATH Chlorhexidine Gluconate (Chlorhexidine 2% Cloth) 3 pack TOPICAL DAILY@0400 LAURA Stop: 06/18/18 03:59 Chlorhexidine Gluconate (Chlorhexidine 2% Cloth) 3 pack TOPICAL DAILY@0400 PRN PRN Reason: Extra cloth needed Stop: 06/18/18 03:59 Famotidine (Pepcid) 20 mg NG/OG BID LAURA Famotidine (Pepcid) 20 mg PO BID [facility] Heparin Sodium (Porcine) (Heparin Inj) 5,000 units SQ Q12H [facility] Sodium Chloride (Ns Inj) 1,000 mls @ 75 mls/hr IV.CONT .[id number] [facility] Pantoprazole Sodium (Protonix) 40 mg PO DAILY [facility] Sodium Chloride (Ns Flush) 2 ml IV.FLUSH PRN PRN PRN Reason: FLUSH AFTER USING IV ACCESS Physical Exam Vital signs: Last Vital Signs Pulse 94 H 06/12/18 10:45 Resp 21 06/12/18 10:45 BP 147/63 H 06/12/18 10:45 Pulse Ox 98 06/12/18 10:45 Intake & Output 06/10/18 06/11/18 06/12/18 06/13/18 06:59 06:59 06:59 06:59 Weight 49.895 kg Constitutional no acute distress and somnolent Routine HEENT Exam Head: Present normocephalic and atraumatic Eye: Present EOMI and PERRL ENT: Present mucous membranes moist Routine Neck Exam Present supple; Absent JVD and tracheal deviation Routine Chest/Breast/Axilla Exam Chest wall: Absent tenderness Routine Respiratory Exam Present decreased breath sounds and diminished air movement; Absent wheezes Routine Cardiovascular Exam Present RRR, S1 and S2 Routine Abdominal Exam Present soft; Absent tenderness and distended Routine Extremities Exam Absent cyanosis and edema Routine Skin Exam Present intact Routine Neurological Exam Patient sleeping secondary to recent Ativan administration Routine Psychiatric Exam Present unable to assess Results Labs CBC & Chem 7: 06/12/18 09:45 06/12/18 09:45 Imaging Impressions Chest X-Ray 06/12/18 09:14 CONCLUSION: No acute cardiopulmonary abnormality is identified. Background changes are characteristic of emphysema. ABG ABG results: ABG pH 7.40 pCO2 59 pO2 65 HCO3 36 Base excess 10.4 H Caprini VTE Risk Assessment Caprini VTE Risk Assessment: No/Low Risk (score <= 1) Caprini Risk Assessment Model: Point Value = 1 Point Value = 2 Point Value = 3 Point Value = 5 Age 41-60 Minor surgery BMI > 25 kg/m2 Swollen legs Varicose veins or History of unexplained or recurrent spontaneous Oral contraceptives or hormone replacement Sepsis (< 1 month) Serious lung disease, including pneumonia (< 1 month) Abnormal pulmonary function Acute myocardial infarction Congestive heart failure (< 1 month) History of inflammatory bowel disease Medical patient at bed rest Age 61-74 Arthroscopic surgery Major open surgery (> 45 min) Laparoscopic surgery (> 45 min) Malignancy Confined to bed (> 72 hours) Immobilizing plaster cast Central venous access Age >= 75 History of VTE Family history of VTE Factor V Leiden Prothrombin [id number] Lupus anticoagulant Anticardiolipin antibodies Elevated serum homocysteine Heparin-induced thrombocytopenia Other congenital or acquired thrombophilia Stroke (< 1 month) Elective arthroplasty Hip, pelvis, or leg fracture Acute spinal cord injury (< 1 month) Prophylaxis Regimen: Total Risk Factor Score Risk Level Prophylaxis Regimen 0-1 Low Early ambulation 2 Moderate Order ONE of the following: *Sequential Compression Device (SCD) *Heparin 5000 units SQ BID 3-4 Higher Order ONE of the following medications: *Heparin 5000 units SQ TID *Enoxaparin/Lovenox 40 mg SQ daily (WT < 150 kg, CrCl > 30 mL/min) *Enoxaparin/Lovenox 30 mg SQ daily (WT < 150 kg, CrCl > 10-29 mL/min) *Enoxaparin/Lovenox 30 mg SQ BID (WT < 150 kg, CrCl > 30 mL/min) AND/OR *Sequential Compression Device (SCD) 5 or more Highest Order ONE of the following medications: *Heparin 5000 units SQ TID (Preferred with Epidurals) *Enoxaparin/Lovenox 40 mg SQ daily (WT < 150 kg, CrCl > 30 mL/min) *Enoxaparin/Lovenox 30 mg SQ daily (WT < 150 kg, CrCl > 10-29 mL/min) *Enoxaparin/Lovenox 30 mg SQ BID (WT < 150 kg, CrCl > 30 mL/min) AND *Sequential Compression Device (SCD) Assessment and Plan Plan Patient is a 53-year-old female with a past medical history significant for tobacco use and COPD home O2 dependent @ 3LPM. She presented to the emergency department complaining of worsening shortness of breath over the past 2 days that has been worsening and running low on her home oxygen. Patient was noted to be in severe respiratory distress at time of arrival in the ED. She was noticed to have substernal retractions, O2 sat of 75% and tachypnea. Patient was also assuming a tripod position according to ER physician. Acute hypoxic respiratory failure. Patient will be admitted to [facility]. She was placed on BiPAP in the ED with following setting IPAP 14/EPAP 5 and 40% O2. We will order duo nebs every 4 hours scheduled and every 2 hours as needed. Patient was given Solu-Medrol in the ED and will continue this IV. Case management has been consulted to evaluate patients home O2 situation as she apparently stated she was running low on her home O2 Acute on chronic COPD exacerbation, home O2 dependent. See treatment as outlined above. In addition patient will be started on Doxycycline PO BID. Symbicort BID. Patient currently NPO due to being given Ativan for severe anxiety while on BIPAP. RN to perform bedside swallow eval once patient is AAOx3 , if patient passes ok to resume her on regular diet. Anxiety. Continue home Xanax 0.5 mg PO BID. Hypokalemia. Replace with PO supplementation once awake and alert. Leukocytosis. Patient with hx of chronic steroid use. See treatment plan as outlined above. Repeat labs in am. CXR with no evidence of pneumonia. Follow clinically. MDM: self Code: Full GI ppx: Pepcid DVT ppx: Heparin SQ Further orders pending clinical course and patients response to therapy. Discussed Condition With: RN at bedside, ED physician Discharge Planning: Home
[2018-06-12] MEDS: Heparin - SQ 10,000 UNITS/ML Vial SQ SCH ×2 (12:34→23:02)
[2018-06-12] MEDS ORDERED: Potassium Bicarbonate 25 MEQ Effervescent Tablet PO ONE (14:00)
--- NOTE | 2018-06-12 15:49 | ECG ---
Date Performed: 06/12/2018 Time Performed: 10:42:50 PTAGE: 53 years EKG: Sinus rhythm WITH OCCASIONAL SUPRAVENTRICULAR PREMATURE COMPLEXES INCOMPLETE RIGHT BUNDLE BRANCH BLOCK BORDERLINE ECG Since PREVIOUS TRACING , no significant change noted PREVIOUS TRACIN07/29/2017 03.04 DOCTOR: Lino Arroyo Interpretating Date/Time 06/12/2018 15:47:02
[2018-06-12] MEDS: MethylPREDNISolone Sod Succinate Inj 40 MG/ML Vial IV.PUSH SCH ×2 (16:08→21:16)
--- NOTE | 2018-06-12 17:16 | MB ---
cc: Mariola Garnett MD DATE: 06/12/2018 REASON FOR CONSULTATION: COPD exacerbation. HISTORY OF PRESENT ILLNESS: The patient is a 53-year-old female with a known history of severe COPD, chronic respiratory failure, on home oxygen therapy with a history of a recent fall and compression fracture of the spine, rib and clavicular fractures in 04/2018. The patient is admitted with a 2-day history of increasing shortness of breath, progressively worse. Upon presentation to the emergency room, her oxygen saturation was noted to be in the 70s. The patient apparently had ran out of oxygen while at home. She denies history of cough, expectoration, fever, chills, hemoptysis. The patient is sedated on BiPAP therapy, comfortable at present; however, could not relate much of a history. History is obtained from patient's record. PAST MEDICAL HISTORY: 1. Chronic obstructive pulmonary disease. 2. Chronic respiratory failure, on oxygen therapy. 3. History of Crohn's disease. 4. Back pain, post fracture. 5. Previous hysterectomy. 6. Previous appendectomy. 7. . 8. Colon resection in the past. FAMILY HISTORY: Noncontributory. ALLERGIES: NOT KNOWN TO MEDICATIONS: CURRENT MEDICATIONS: 1. Nebulized albuterol 2. Ipratropium. 3. Symbicort twice daily. 4. Pepcid. 5. Solu-Medrol intravenously. REVIEW OF SYSTEMS: A 12-point review of systems as per HPI and past history, otherwise negative. PHYSICAL EXAMINATION: GENERAL: The patient is on BiPAP therapy and given medication for anxiety. VITAL SIGNS: Temperature 98.5, pulse 80, respirations 20, blood pressure 110/70, oxygen saturation 94% on BiPAP therapy. HEENT: Unremarkable. Eyes without icterus. NECK: Without adenopathy or thyroid enlargement. CHEST: Few scattered rhonchi bilaterally. CARDIAC: PMI not appreciated. S1, S2 audible. No murmur. No rub. ABDOMEN: Lax, bowel sounds audible. EXTREMITIES: No clubbing, cyanosis or edema. LABORATORY DATA: White count 24,000, hemoglobin 12, hematocrit 39. ABG: pH 7.40, pCO2 of 59, pO2 of 65 on BiPAP therapy 12/5. Sodium 139, potassium 3.2, BUN 9, creatinine 0.5. Chest x-ray upon presentation today without acute abnormality. IMPRESSION: 1. Chronic obstructive pulmonary disease exacerbation. 2. Acute on chronic respiratory failure. 3. Crohn's disease. PLAN: The patient will be maintained on oxygen therapy as needed. If BiPAP therapy is helpful, it will be continued. Oxygenation and ventilation seem adequate. She does have evidence of hypercarbia, how chronic this is I am not sure, however, this will need to be followed. Would continue her bronchodilator therapy when able. We will obtain pulmonary function evaluation. I do thank you for asking me to partake in this patient's care. We will follow with you as needed. Mariola Garnett MD WWW/susi , 04:55 PM , 05:04 PM
[2018-06-12] MEDS ORDERED: Famotidine 20 MG Tablet NG/OG SCH (21:00)
[2018-06-12] MEDS: Famotidine 20 MG Tablet PO SCH (21:17)
[2018-06-12] MEDS: ALPRAZolam 0.5 MG Tablet PO SCH (21:17)
[2018-06-12] MEDS: Budesonide-Formoterol 80/4.5 MCG 6.9 GM Inhaler INH SCH (21:50)
[2018-06-12] MEDS: Acetaminophen 325 MG Tablet PO PRN (21:51)
[2018-06-12] MEDS: Benzonatate 100 MG Capsule PO PRN (21:51)
[2018-06-12] MEDS: guaiFENesin/Codeine Syrup 200 MG/20 MG 10 ML UDC PO PRN (23:02)
[2018-06-13 01:48] LABS: Bilirubin,Urine Negative (Negative); Clarity,Urine Clear (Clear); Color,Urine Yellow (Yellw/Straw); Glucose,Urine (UA) 500 or Greater mg/dL (Negative); Leukocyte Esterase,Urine Negative (Negative); Mucus,Urine Few /lpf (Occasional); Nitrite,Urine Negative (Negative); Specific Gravity,Urine 1.013 (1.002-1.035); Squamous Epithelial Cell,Urine 1 /hpf (0-5)
[2018-06-13] MEDS ORDERED: Chlorhexidine Gluconate 2% 1 Pack (2 Cloths) TOPICAL PRN (04:00)
[2018-06-13] MEDS: MethylPREDNISolone Sod Succinate Inj 40 MG/ML Vial IV.PUSH SCH ×4 (04:25→20:20)
[2018-06-13] MEDS: Chlorhexidine Gluconate 2% 1 Pack (2 Cloths) TOPICAL SCH (04:25)
[2018-06-13 05:40] LABS: Baso % (Auto) 0.2 % (0.0-2.0); Eos % (Auto) 0.1 % (0.0-4.0); Hematocrit 38.1 % (35.0-46.0); Hemoglobin 11.8 gm/dL (11.6-15.3); Lymph # (Auto) 0.5 th/mm3 (1.0-4.8); Mean Corpuscular Hemoglobin 21.1 pg (27.0-34.0); Mean Corpuscular Volume 68.3 fL (80.0-100.0); Mean Platelet Volume 10.4 fL (7.0-11.0); Mono # (Auto) 0.7 th/mm3 (0.0-0.9); Mono % (Auto) 4.8 % (0.0-8.0); Neut # (Auto) 14.1 th/mm3 (1.8-7.7); Neut % (Auto) 91.9 % (16.0-70.0); Platelet Count 273 th/mm3 (150-450); Red Blood Count 5.58 mil/mm3 (4.00-5.30); Red Cell Distribution Width 18.4 % (11.6-17.2); White Blood Count 15.3 th/mm3 (4.0-11.0)
[2018-06-13 05:47] LABS: Mean Corpuscular HGB Conc 30.9 % (32.0-36.0)
[2018-06-13 06:04] LABS: Alanine Aminotransferase 24 U/L (10-53); Albumin 3.4 g/dL (3.4-5.0); Alkaline Phosphatase 71 U/L (45-117); Anion Gap 9 meq/L (5-15); Aspartate Aminotransferase 29 U/L (15-37); Blood Urea Nitrogen 10 mg/dL (7-18); Carbon Dioxide 32.4 meq/L (21.0-32.0); Chloride 100 meq/L (98-107); Glomerular Filtration Rate 65 mL/min (>89); Glucose,Random 226 mg/dL (74-106); Potassium 3.5 meq/L (3.5-5.1); Sodium 141 meq/L (136-145); Total Protein 6.7 g/dL (6.4-8.2)
[2018-06-13] MEDS: Benzonatate 100 MG Capsule PO PRN ×2 (09:02→17:36)
[2018-06-13] MEDS: guaiFENesin/Codeine Syrup 200 MG/20 MG 10 ML UDC PO PRN ×2 (09:04→15:02)
[2018-06-13] MEDS: ALPRAZolam 0.5 MG Tablet PO SCH ×2 (09:04→20:21)
[2018-06-13] MEDS: Famotidine 20 MG Tablet PO SCH ×2 (09:04→20:21)
[2018-06-13] MEDS: Budesonide-Formoterol 80/4.5 MCG 6.9 GM Inhaler INH SCH ×2 (09:08→20:21)
[2018-06-13] MEDS ORDERED: Promethazine 25 MG Supp RECTAL PRN (11:33)
[2018-06-13] MEDS: Heparin - SQ 10,000 UNITS/ML Vial SQ SCH (11:46)
[2018-06-13] MEDS: Acetaminophen 325 MG Tablet PO PRN (17:36)
[2018-06-13] MEDS ORDERED: Dextrose 50% in Water 50 ML Vial IV.PUSH PRN (18:07)
--- NOTE | 2018-06-13 18:09 | P.PNIM ---
Subjective Interval history: Says that pleuritic type chest pain continues with deep breathing. Denies any nausea or vomiting. Still with continued cough. Physical Exam Vital signs: Vital Signs 06/12/18 19:00 06/12/18 20:00 06/12/18 20:57 Temperature 96.9 F L Pulse Rate 76 96 H 110 H Respiratory Rate 28 H 22 Blood Pressure 129/92 H Pulse Oximetry 96 06/12/18 21:00 06/12/18 21:06 06/12/18 22:00 Temperature Pulse Rate 110 H 116 H Respiratory Rate Blood Pressure Pulse Oximetry 92 L 06/12/18 23:00 06/12/18 23:30 06/13/18 00:00 Temperature 96.9 F L Pulse Rate 110 H 116 H Respiratory Rate 24 Blood Pressure 127/83 Pulse Oximetry 94 L 95 06/13/18 01:00 06/13/18 02:00 06/13/18 02:35 Temperature Pulse Rate 119 H 114 H Respiratory Rate 20 Blood Pressure Pulse Oximetry 06/13/18 03:00 06/13/18 04:00 06/13/18 05:00 Temperature 98.2 F Pulse Rate 106 H 116 H 112 H Respiratory Rate 22 Blood Pressure 122/72 Pulse Oximetry 95 06/13/18 06:00 06/13/18 07:00 06/13/18 08:00 Temperature 98.4 F Pulse Rate 102 H 97 H 98 H Respiratory Rate 20 Blood Pressure 121/75 Pulse Oximetry 92 L 06/13/18 08:47 06/13/18 09:00 06/13/18 10:00 Temperature Pulse Rate 84 102 H 100 H Respiratory Rate 14 Blood Pressure Pulse Oximetry 92 L 06/13/18 10:54 06/13/18 11:00 06/13/18 12:00 Temperature 98 F Pulse Rate 107 H 114 H 107 H Respiratory Rate 15 20 Blood Pressure 124/68 Pulse Oximetry 95 06/13/18 13:00 06/13/18 14:00 06/13/18 15:00 Temperature Pulse Rate 108 H 94 H 102 H Respiratory Rate Blood Pressure Pulse Oximetry 06/13/18 15:22 06/13/18 16:00 06/13/18 17:00 Temperature 98.8 F Pulse Rate 102 H 110 H 108 H Respiratory Rate 20 Blood Pressure 118/62 Pulse Oximetry 96 Intake & Output 1206/13/18 06/13/18 18:59 06:59 18:59 Intake Total 1000 / 1000 1750 / 1750 1960 / 1960 Output Total 0 / 0 480 / 480 500 / 500 Balance 1000 / 1000 1270 / 1270 1460 / 1460 Weight 49.895 kg 50.4 kg Intake: IV 1000 / 1000 1000 / 1000 1000 / 1000 NS + KCl 40 mEq Inj 1,000 ML @ 1000 / 1000 1000 / 1000 75 mls/hr IV.CONT .[id number] NICOLE Rx#:[id number] NS Inj 1,000 ML @ 75 mls/hr IV. 1000 / 1000 CONT .[id number] NICOLE Rx#:[id number] Oral 0 / 0 750 / 750 960 / 960 Output: Urine 0 / 0 480 / 480 500 / 500 Other: # Voids 3 Date of Last Bowel Movement 06/13/18 06/13/18 # Bowel Movements 2 3 Narrative: GENERAL: Patient sitting in bed bed coughing. Appears uncomfortable. SKIN: Warm and dry. HEAD: Normocephalic. EYES: No scleral icterus. No injection or drainage. NECK: Supple, trachea midline. No JVD. CARDIOVASCULAR: Regular rate and rhythm without murmurs, gallops, or rubs. RESPIRATORY: Breath sounds equal bilaterally. No accessory muscle use. GASTROINTESTINAL: Abdomen soft, non-tender, nondistended. MUSCULOSKELETAL: No cyanosis, or edema. BACK: Nontender without obvious deformity. No CVA tenderness. Results - Labs CBC & Chem 7: 06/13/18 04:22 06/13/18 04:22 Laboratory Results - last 24 hr 06/12/18 06/13/18 06/13/18 23:15 01:00 04:22 WBC 15.3 H RBC 5.58 H Hgb 11.8 Hct 38.1 MCV 68.3 L MCH 21.1 L MCHC 30.9 L RDW 18.4 H Plt Count 273 MPV 10.4 Neut % (Auto) 91.9 H Lymph % (Auto) 3.0 L [place] % (Auto) 4.8 Eos % (Auto) 0.1 Baso % (Auto) 0.2 Neut # (Auto) 14.1 H Lymph # (Auto) 0.5 L [place] # (Auto) 0.7 Eos # (Auto) 0.0 Baso # (Auto) 0.0 WBC Differential . Differential Comment Auto diff final Sodium Potassium Chloride Carbon Dioxide Anion Gap BUN Creatinine Estimated GFR Random Glucose Calcium Total Bilirubin AST ALT Alkaline Phosphatase Total Protein Albumin Urine Color Yellow Urine Clarity Clear Urine pH 6.0 Ur Specific [place] 1.013 Urine Protein Negative Urine Glucose (UA) 500 or greater Urine Ketones Negative Urine Occult Blood Negative Urine Nitrate Negative Urine Bilirubin Negative Urine Urobilinogen Less than 2 Ur Leukocyte Esterase Negative Urine RBC Less than 1 Urine WBC Less than 1 Ur Squamous Epith Cells 1 Urine Mucus Few H Micro UA Comment Culture not ind Ur Microscopic Review Not Reportable Urine Culture Comments Culture not ind Nasal Screen MRSA (PCR) Mrsa detected Stl C.difficile DNA Amp St C. diff Tox Epid 027 06/13/18 06/13/18 04:22 14:45 WBC RBC Hgb Hct MCV MCH MCHC RDW Plt Count MPV Neut % (Auto) Lymph % (Auto) [place] % (Auto) Eos % (Auto) Baso % (Auto) Neut # (Auto) Lymph # (Auto) [place] # (Auto) Eos # (Auto) Baso # (Auto) WBC Differential Differential Comment Sodium 141 Potassium 3.5 Chloride 100 Carbon Dioxide 32.4 H Anion Gap 9 BUN 10 Creatinine 0.91 Estimated GFR 65 L Random Glucose 226 H D Calcium 8.0 L Total Bilirubin 1.2 H AST 29 ALT 24 Alkaline Phosphatase 71 Total Protein 6.7 Albumin 3.4 Urine Color Urine Clarity Urine pH Ur Specific [place] Urine Protein Urine Glucose (UA) Urine Ketones Urine Occult Blood Urine Nitrate Urine Bilirubin Urine Urobilinogen Ur Leukocyte Esterase Urine RBC Urine WBC Ur Squamous Epith Cells Urine Mucus Micro UA Comment Ur Microscopic Review Urine Culture Comments Nasal Screen MRSA (PCR) Stl C.difficile DNA Amp Positive H St C. diff Tox Epid 027 Negative Microbiology 06/12/18 10:20 Blood - Peripheral Aerobic Blood Culture - Preliminary No growth in 1 day 06/12/18 10:20 Blood - Peripheral Anaerobic Blood Culture - Preliminary No growth in 1 day 06/12/18 10:15 Blood - Peripheral Aerobic Blood Culture - Preliminary No growth in 1 day 06/12/18 10:15 Blood - Peripheral Anaerobic Blood Culture - Preliminary No growth in 1 day Assessment and Plan - Plan Patient is a 53-year-old female with a past medical history significant for tobacco use and COPD home O2 dependent @ 3LPM. She presented to the emergency department complaining of worsening shortness of breath over the past 2 days that has been worsening and running low on her home oxygen. Patient was noted to be in severe respiratory distress at time of arrival in the ED. She was noticed to have substernal retractions, O2 sat of 75% and tachypnea. Patient was also assuming a tripod position according to ER physician. //Acute hypoxic respiratory failure. Patient will be admitted to [facility] [place]. She was placed on BiPAP in the ED with following setting IPAP 14/EPAP 5 and 40% O2. We will order duo nebs every 4 hours scheduled and every 2 hours as needed. Patient was given Solu-Medrol in the ED and will continue this IV. Case management has been consulted to evaluate patients home O2 situation as she apparently stated she was running low on her home O2 = Improving slightly. Due to pleuritic type chest pain, will order d-dimer. //Acute on chronic COPD exacerbation, home O2 dependent. See treatment as outlined above. In addition patient will be started on Doxycycline PO BID. Symbicort BID. Patient currently NPO due to being given Ativan for severe anxiety while on BIPAP. RN to perform bedside swallow eval once patient is AAOx3 , if patient passes ok to resume her on regular diet. = Continue doxycycline, nebs, steroids. Pulmonology following. Appreciate assistance. //Diarrhea //Suspected C. difficile. -Toxin evaluation pending, however DNA positive We will start on by mouth vancomycin and monitor. Patient is already on isolation /Anxiety. Continue home Xanax 0.5 mg PO BID. //Hypokalemia. = Resolved after replacement. Monitor. //Steroid-induced hyperglycemia in the 200s. Will start on insulin sliding scale and check A1c. Likely secondary to steroids. //Leukocytosis. Patient with hx of chronic steroid use. See treatment plan as outlined above. Repeat labs in am. CXR with no evidence of pneumonia. Follow clinically. code full GI ppx: Pepcid DVT ppx: Heparin SQ Discussed Condition With: Patient, nurse, rn field case manager. Discharge Planning: Pending improvement. Self-pay Uncertain how she gets oxygen at home, however will assess need for oxygen at discharge.
--- NOTE | 2018-06-13 19:26 | P.PN ---
Subjective Interval history: alert less sob Physical Exam Vital signs: Vital Signs 06/12/18 20:00 06/12/18 20:57 06/12/18 21:00 Temperature 96.9 F L Pulse Rate 96 H 110 H 110 H Respiratory Rate 28 H 22 Blood Pressure 129/92 H Pulse Oximetry 96 06/12/18 21:06 06/12/18 22:00 06/12/18 23:00 Temperature Pulse Rate 116 H 110 H Respiratory Rate Blood Pressure Pulse Oximetry 92 L 06/12/18 23:30 06/13/18 00:00 06/13/18 01:00 Temperature 96.9 F L Pulse Rate 116 H 119 H Respiratory Rate 24 Blood Pressure 127/83 Pulse Oximetry 94 L 95 06/13/18 02:00 06/13/18 02:35 06/13/18 03:00 Temperature Pulse Rate 114 H 106 H Respiratory Rate 20 Blood Pressure Pulse Oximetry 06/13/18 04:00 06/13/18 05:00 06/13/18 06:00 Temperature 98.2 F Pulse Rate 116 H 112 H 102 H Respiratory Rate 22 Blood Pressure 122/72 Pulse Oximetry 95 06/13/18 07:00 06/13/18 08:00 06/13/18 08:47 Temperature 98.4 F Pulse Rate 97 H 98 H 84 Respiratory Rate 20 14 Blood Pressure 121/75 Pulse Oximetry 92 L 92 L 06/13/18 09:00 06/13/18 10:00 06/13/18 10:54 Temperature Pulse Rate 102 H 100 H 107 H Respiratory Rate 15 Blood Pressure Pulse Oximetry 06/13/18 11:00 06/13/18 12:00 06/13/18 13:00 Temperature 98 F Pulse Rate 114 H 107 H 108 H Respiratory Rate 20 Blood Pressure 124/68 Pulse Oximetry 95 06/13/18 14:00 06/13/18 15:00 06/13/18 15:22 Temperature 98.8 F Pulse Rate 94 H 102 H 102 H Respiratory Rate 20 Blood Pressure 118/62 Pulse Oximetry 96 06/13/18 16:00 06/13/18 17:00 06/13/18 18:00 Temperature Pulse Rate 110 H 108 H 101 H Respiratory Rate Blood Pressure Pulse Oximetry 06/13/18 19:07 Temperature Pulse Rate 101 H Respiratory Rate 20 Blood Pressure Pulse Oximetry Intake & Output 12/06/13/18 06/14/18 06:59 18:59 06:59 Intake Total 1750 / 1750 1960 / 1960 Output Total 480 / 480 500 / 500 Balance 1270 / 1270 1460 / 1460 Weight 50.4 kg Intake: IV 1000 / 1000 1000 / 1000 NS + KCl 40 mEq Inj 1,000 ML @ 1000 / 1000 1000 / 1000 75 mls/hr IV.CONT .[id number] NICOLE Rx#:[id number] Oral 750 / 750 960 / 960 Output: Urine 480 / 480 500 / 500 Other: # Voids 3 Date of Last Bowel Movement 06/13/18 06/13/18 # Bowel Movements 2 3 Narrative: GENERAL: Patient sitting in bed bed coughing. Appears uncomfortable. SKIN: Warm and dry. HEAD: Normocephalic. EYES: No scleral icterus. No injection or drainage. NECK: Supple, trachea midline. No JVD. CARDIOVASCULAR: Regular rate and rhythm without murmurs, gallops, or rubs. RESPIRATORY: Breath sounds equal bilaterally. No accessory muscle use. GASTROINTESTINAL: Abdomen soft, non-tender, nondistended. MUSCULOSKELETAL: No cyanosis, or edema. BACK: Nontender without obvious deformity. No CVA tenderness. Results - Labs CBC & Chem 7: 06/13/18 04:22 06/13/18 04:22 Laboratory Results - last 24 hr 06/12/18 06/13/18 06/13/18 23:15 01:00 04:22 WBC 15.3 H RBC 5.58 H Hgb 11.8 Hct 38.1 MCV 68.3 L MCH 21.1 L MCHC 30.9 L RDW 18.4 H Plt Count 273 MPV 10.4 Neut % (Auto) 91.9 H Lymph % (Auto) 3.0 L [place] % (Auto) 4.8 Eos % (Auto) 0.1 Baso % (Auto) 0.2 Neut # (Auto) 14.1 H Lymph # (Auto) 0.5 L [place] # (Auto) 0.7 Eos # (Auto) 0.0 Baso # (Auto) 0.0 WBC Differential . Differential Comment Auto diff final Sodium Potassium Chloride Carbon Dioxide Anion Gap BUN Creatinine Estimated GFR Random Glucose Calcium Total Bilirubin AST ALT Alkaline Phosphatase Total Protein Albumin Urine Color Yellow Urine Clarity Clear Urine pH 6.0 Ur Specific [place] 1.013 Urine Protein Negative Urine Glucose (UA) 500 or greater Urine Ketones Negative Urine Occult Blood Negative Urine Nitrate Negative Urine Bilirubin Negative Urine Urobilinogen Less than 2 Ur Leukocyte Esterase Negative Urine RBC Less than 1 Urine WBC Less than 1 Ur Squamous Epith Cells 1 Urine Mucus Few H Micro UA Comment Culture not ind Ur Microscopic Review Not Reportable Urine Culture Comments Culture not ind Nasal Screen MRSA (PCR) Mrsa detected Stl C.difficile DNA Amp St C. diff Tox Epid 027 06/13/18 06/13/18 04:22 14:45 WBC RBC Hgb Hct MCV MCH MCHC RDW Plt Count MPV Neut % (Auto) Lymph % (Auto) [place] % (Auto) Eos % (Auto) Baso % (Auto) Neut # (Auto) Lymph # (Auto) [place] # (Auto) Eos # (Auto) Baso # (Auto) WBC Differential Differential Comment Sodium 141 Potassium 3.5 Chloride 100 Carbon Dioxide 32.4 H Anion Gap 9 BUN 10 Creatinine 0.91 Estimated GFR 65 L Random Glucose 226 H D Calcium 8.0 L Total Bilirubin 1.2 H AST 29 ALT 24 Alkaline Phosphatase 71 Total Protein 6.7 Albumin 3.4 Urine Color Urine Clarity Urine pH Ur Specific [place] Urine Protein Urine Glucose (UA) Urine Ketones Urine Occult Blood Urine Nitrate Urine Bilirubin Urine Urobilinogen Ur Leukocyte Esterase Urine RBC Urine WBC Ur Squamous Epith Cells Urine Mucus Micro UA Comment Ur Microscopic Review Urine Culture Comments Nasal Screen MRSA (PCR) Stl C.difficile DNA Amp Positive H St C. diff Tox Epid 027 Negative Microbiology 06/12/18 10:20 Blood - Peripheral Aerobic Blood Culture - Preliminary No growth in 1 day 06/12/18 10:20 Blood - Peripheral Anaerobic Blood Culture - Preliminary No growth in 1 day 06/12/18 10:15 Blood - Peripheral Aerobic Blood Culture - Preliminary No growth in 1 day 06/12/18 10:15 Blood - Peripheral Anaerobic Blood Culture - Preliminary No growth in 1 day Assessment and Plan - Plan COPDEXACERBAION RESP. FAILURE PLAN O2 NEEDED BRONCHODILATOR THERAPY STEROIDS INCREASE ACTIVITY
[2018-06-13] MEDS: Insulin NovoLOG Aspart Correctional Sugar Inj SQ SCH (21:48)
[2018-06-14] MEDS: MethylPREDNISolone Sod Succinate Inj 40 MG/ML Vial IV.PUSH SCH ×4 (02:45→21:20)
[2018-06-14] MEDS: Heparin - SQ 10,000 UNITS/ML Vial SQ SCH ×2 (02:45→11:53)
[2018-06-14] MEDS: guaiFENesin/Codeine Syrup 200 MG/20 MG 10 ML UDC PO PRN ×3 (02:46→21:17)
[2018-06-14] MEDS: Chlorhexidine Gluconate 2% 1 Pack (2 Cloths) TOPICAL SCH (03:57)
[2018-06-14] MEDS: Insulin NovoLOG Aspart Correctional Sugar Inj SQ SCH ×4 (08:24→21:25)
[2018-06-14] MEDS: ALPRAZolam 0.5 MG Tablet PO SCH ×2 (08:54→21:17)
[2018-06-14] MEDS: Famotidine 20 MG Tablet PO SCH ×2 (08:54→21:17)
[2018-06-14] MEDS: Budesonide-Formoterol 80/4.5 MCG 6.9 GM Inhaler INH SCH ×2 (08:54→21:21)
[2018-06-14 09:54] LABS: Hemoglobin A1c 5.3 % (4.3-6.0)
--- NOTE | 2018-06-14 12:04 | P.PN ---
Subjective Interval history: ALERT NAD ISOLATION FOR MRSA Physical Exam Vital signs: Vital Signs 06/13/18 13:00 06/13/18 14:00 06/13/18 15:00 Temperature Pulse Rate 108 H 94 H 102 H Respiratory Rate Blood Pressure Pulse Oximetry 06/13/18 15:22 06/13/18 16:00 06/13/18 17:00 Temperature 98.8 F Pulse Rate 102 H 110 H 108 H Respiratory Rate 20 Blood Pressure 118/62 Pulse Oximetry 96 06/13/18 18:00 06/13/18 19:00 06/13/18 19:07 Temperature Pulse Rate 101 H 101 H 101 H Respiratory Rate 20 Blood Pressure Pulse Oximetry 06/13/18 20:00 06/13/18 21:00 06/13/18 22:00 Temperature 98.1 F Pulse Rate 98 H 94 H 92 H Respiratory Rate 22 Blood Pressure 129/83 Pulse Oximetry 93 L 06/13/18 22:49 06/13/18 23:00 06/14/18 00:00 Temperature 97.9 F Pulse Rate 99 H 97 H 98 H Respiratory Rate 20 22 Blood Pressure 125/74 Pulse Oximetry 95 06/14/18 01:00 06/14/18 02:00 06/14/18 03:00 Temperature Pulse Rate 98 H 106 H 101 H Respiratory Rate Blood Pressure Pulse Oximetry 06/14/18 03:48 06/14/18 04:00 06/14/18 05:00 Temperature Pulse Rate 101 H 126 H 84 Respiratory Rate 19 20 Blood Pressure 103/58 L Pulse Oximetry 94 L 06/14/18 06:00 06/14/18 07:00 06/14/18 08:00 Temperature Pulse Rate 87 96 H 90 Respiratory Rate Blood Pressure Pulse Oximetry 06/14/18 08:07 06/14/18 09:00 06/14/18 09:08 Temperature 97.8 F Pulse Rate 96 H 118 H 101 H Respiratory Rate 18 18 Blood Pressure 134/96 H Pulse Oximetry 95 92 L 06/14/18 10:00 06/14/18 11:00 06/14/18 11:29 Temperature Pulse Rate 106 H 111 H 108 H Respiratory Rate 16 Blood Pressure Pulse Oximetry 06/14/18 11:42 Temperature 98.8 F Pulse Rate 113 H Respiratory Rate 18 Blood Pressure 126/85 Pulse Oximetry 90 L Intake & Output 12/06/14/18 06/14/18 18:59 06:59 18:59 Intake Total 1959 / 1959 1720 / 1720 Output Total 500 / 500 1999 Balance 1460 / 1460 -280 / -280 Weight 50 kg Intake: IV 1000 / 1000 1000 / 1000 NS + KCl 40 mEq Inj 1,000 ML @ 1000 / 1000 1000 / 1000 75 mls/hr IV.CONT .[id number] NICOLE Rx#:[id number] Oral 960 / 960 720 / 720 Output: Urine 500 / 500 1999 Other: # Voids 3 Date of Last Bowel Movement 06/13/18 06/14/18 06/14/18 # Bowel Movements 3 2 Narrative: GENERAL: Patient sitting in bed bed coughing. Appears uncomfortable. SKIN: Warm and dry. HEAD: Normocephalic. EYES: No scleral icterus. No injection or drainage. NECK: Supple, trachea midline. No JVD. CARDIOVASCULAR: Regular rate and rhythm without murmurs, gallops, or rubs. RESPIRATORY: Breath sounds equal bilaterally. No accessory muscle use. GASTROINTESTINAL: Abdomen soft, non-tender, nondistended. MUSCULOSKELETAL: No cyanosis, or edema. BACK: Nontender without obvious deformity. No CVA tenderness. Results - Labs CBC & Chem 7: 06/13/18 04:22 06/13/18 04:22 Laboratory Results - last 24 hr 06/13/18 06/13/18 06/13/18 04:22 14:45 18:32 D-Dimer Quant (PE/DVT) 0.38 POC Glucose Hemoglobin A1c 5.3 Stool C.difficile Ag Positive H Stool C.difficile Toxin Negative Stl C.difficile DNA Amp Positive H St C. diff Tox Epid 027 Negative 06/13/18 06/14/18 21:45 08:11 D-Dimer Quant (PE/DVT) POC Glucose 213 H 106 Hemoglobin A1c Stool C.difficile Ag Stool C.difficile Toxin Stl C.difficile DNA Amp St C. diff Tox Epid 027 Microbiology 06/12/18 10:20 Blood - Peripheral Aerobic Blood Culture - Preliminary No growth in 2 days 06/12/18 10:20 Blood - Peripheral Anaerobic Blood Culture - Preliminary No growth in 2 days 06/12/18 10:15 Blood - Peripheral Aerobic Blood Culture - Preliminary No growth in 2 days 06/12/18 10:15 Blood - Peripheral Anaerobic Blood Culture - Preliminary No growth in 2 days Assessment and Plan - Plan COPD EXACERBAION RESP. FAILURE PLAN O2 NEEDED BRONCHODILATOR THERAPY TAPER STEROIDS INCREASE ACTIVITY
--- NOTE | 2018-06-14 13:02 | P.PN ---
Subjective Interval history: Follow-up COPD exacerbation with respiratory failure June 14, 2018-patient seen and examined, still with shortness of breath and complains of chest pain and requesting more narcotics at this point. Patient state, she has a history of Crohn's disease thus the diarrhea Physical Exam Vital signs: Vital Signs 06/13/18 13:00 06/13/18 14:00 06/13/18 15:00 Temperature Pulse Rate 108 H 94 H 102 H Respiratory Rate Blood Pressure Pulse Oximetry 06/13/18 15:22 06/13/18 16:00 06/13/18 17:00 Temperature 98.8 F Pulse Rate 102 H 110 H 108 H Respiratory Rate 20 Blood Pressure 118/62 Pulse Oximetry 96 06/13/18 18:00 06/13/18 19:00 06/13/18 19:07 Temperature Pulse Rate 101 H 101 H 101 H Respiratory Rate 20 Blood Pressure Pulse Oximetry 06/13/18 20:00 06/13/18 21:00 06/13/18 22:00 Temperature 98.1 F Pulse Rate 98 H 94 H 92 H Respiratory Rate 22 Blood Pressure 129/83 Pulse Oximetry 93 L 06/13/18 22:49 06/13/18 23:00 06/14/18 00:00 Temperature 97.9 F Pulse Rate 99 H 97 H 98 H Respiratory Rate 20 22 Blood Pressure 125/74 Pulse Oximetry 95 06/14/18 01:00 06/14/18 02:00 06/14/18 03:00 Temperature Pulse Rate 98 H 106 H 101 H Respiratory Rate Blood Pressure Pulse Oximetry 06/14/18 03:48 06/14/18 04:00 06/14/18 05:00 Temperature Pulse Rate 101 H 126 H 84 Respiratory Rate 19 20 Blood Pressure 103/58 L Pulse Oximetry 94 L 06/14/18 06:00 06/14/18 07:00 06/14/18 08:00 Temperature Pulse Rate 87 96 H 90 Respiratory Rate Blood Pressure Pulse Oximetry 06/14/18 08:07 06/14/18 09:00 06/14/18 09:08 Temperature 97.8 F Pulse Rate 96 H 118 H 101 H Respiratory Rate 18 18 Blood Pressure 134/96 H Pulse Oximetry 95 92 L 06/14/18 10:00 06/14/18 11:00 06/14/18 11:29 Temperature Pulse Rate 106 H 111 H 108 H Respiratory Rate 16 Blood Pressure Pulse Oximetry 06/14/18 11:42 Temperature 98.8 F Pulse Rate 113 H Respiratory Rate 18 Blood Pressure 126/85 Pulse Oximetry 90 L Intake & Output 06/13/18 06/14/18 06/14/18 18:59 06:59 18:59 Intake Total 1959 / 1959 1720 / 1720 Output Total 500 / 500 1999 / 1999 Balance 1460 / 1460 -280 / -280 Weight 50 kg Intake: IV 1000 / 1000 1000 / 1000 NS + KCl 40 mEq Inj 1,000 ML @ 1000 / 1000 1000 / 1000 75 mls/hr IV.CONT .[id number] NICOLE Rx#:[id number] Oral 960 / 960 720 / 720 Output: Urine 500 / 500 1999 Other: # Voids 3 Date of Last Bowel Movement 06/13/18 06/14/18 06/14/18 # Bowel Movements 3 2 Narrative: GENERAL: NAD SKIN: Warm and dry. HEAD: Atraumatic. Normocephalic. EYES: Pupils equal and round. No scleral icterus. No injection or drainage. ENT: No nasal bleeding or discharge. Mucous membranes pink and moist. NECK: Trachea midline. No JVD. CARDIOVASCULAR: Regular rate and rhythm. RESPIRATORY: No accessory muscle use. Breath sounds decreased bilaterally. GASTROINTESTINAL: Abdomen soft, non-tender, nondistended. Hepatic and splenic margins not palpable. MUSCULOSKELETAL: Extremities without clubbing, cyanosis, or edema. No obvious deformities. NEUROLOGICAL: Awake and alert. No obvious cranial nerve deficits. Motor grossly within normal limits. Five out of 5 muscle strength in the arms and legs. Normal speech. PSYCHIATRIC: Appropriate mood and affect; insight and judgment normal. Results - Labs CBC & Chem 7: 06/13/18 04:22 06/13/18 04:22 Laboratory Results - last 24 hr 06/13/18 06/13/18 06/13/18 04:22 14:45 18:32 D-Dimer Quant (PE/DVT) 0.38 POC Glucose Hemoglobin A1c 5.3 Stool C.difficile Ag Positive H Stool C.difficile Toxin Negative Stl C.difficile DNA Amp Positive H St C. diff Tox Epid 027 Negative 06/13/18 06/14/18 06/14/18 21:45 08:11 11:46 D-Dimer Quant (PE/DVT) POC Glucose 213 H 106 197 H Hemoglobin A1c Stool C.difficile Ag Stool C.difficile Toxin Stl C.difficile DNA Amp St C. diff Tox Epid 027 Microbiology 06/12/18 10:20 Blood - Peripheral Aerobic Blood Culture - Preliminary No growth in 2 days 06/12/18 10:20 Blood - Peripheral Anaerobic Blood Culture - Preliminary No growth in 2 days 06/12/18 10:15 Blood - Peripheral Aerobic Blood Culture - Preliminary No growth in 2 days 06/12/18 10:15 Blood - Peripheral Anaerobic Blood Culture - Preliminary No growth in 2 days Assessment and Plan - Plan 53-year-old female with Acute COPD exacerbation with acute respiratory failure Currently on Solu-Medrol now 40 mg every 12 hours IV, scheduled and as needed DuoNeb, Doxy, Symbicort and will add Spiriva Appreciate input from pulmonary medicine Maintain oxygen saturation above 92% Will need to walk test prior to discharge Patient with history of Crohn disease Currently with diarrhea, suspected C. difficile Continue with p.o. vancomycin and monitor Leukocytosis Secondary to chronic steroid use Continue to monitor platelet count Steroid-induced hyperglycemia Continue with sliding scale insulin Hemoglobin A1c pending Anxiety Currently on Xanax 0.5 mg p.o. twice daily Hypokalemia Replace electrolytes and monitor DVT prophylaxis: Heparin subcu
[2018-06-15] MEDS ORDERED: Phenol 1.4% 180 ML Spray Bottle OROPHARYNG PRN (00:05)
[2018-06-15] MEDS: Heparin - SQ 10,000 UNITS/ML Vial SQ SCH ×3 (00:52→23:45)
[2018-06-15] MEDS: Chlorhexidine Gluconate 2% 1 Pack (2 Cloths) TOPICAL SCH (05:16)
[2018-06-15] MEDS: ALPRAZolam 0.5 MG Tablet PO SCH ×2 (08:43→20:06)
[2018-06-15] MEDS: MethylPREDNISolone Sod Succinate Inj 40 MG/ML Vial IV.PUSH SCH ×2 (08:43→20:05)
[2018-06-15] MEDS: Famotidine 20 MG Tablet PO SCH ×2 (08:44→20:05)
[2018-06-15] MEDS: Insulin NovoLOG Aspart Correctional Sugar Inj SQ SCH ×4 (08:44→20:06)
[2018-06-15] MEDS: Budesonide-Formoterol 80/4.5 MCG 6.9 GM Inhaler INH SCH ×2 (08:45→20:06)
[2018-06-15] MEDS: Tiotropium Bromide 18 MCG/ACT Inhaler INH SCH (08:45)
[2018-06-15 08:53] LABS: Baso % (Auto) 0.1 % (0.0-2.0); Hematocrit 38.2 % (35.0-46.0); Hemoglobin 11.8 gm/dL (11.6-15.3); Lymph # (Auto) 1.9 th/mm3 (1.0-4.8); Mean Corpuscular Hemoglobin 21.1 pg (27.0-34.0); Mean Corpuscular Volume 68.3 fL (80.0-100.0); Mean Platelet Volume 9.7 fL (7.0-11.0); Mono # (Auto) 1.3 th/mm3 (0.0-0.9); Mono % (Auto) 7.5 % (0.0-8.0); Neut # (Auto) 14.3 th/mm3 (1.8-7.7); Neut % (Auto) 81.4 % (16.0-70.0); Platelet Count 298 th/mm3 (150-450); Red Cell Distribution Width 18.7 % (11.6-17.2); White Blood Count 17.6 th/mm3 (4.0-11.0)
[2018-06-15 08:55] LABS: Mean Corpuscular HGB Conc 30.8 % (32.0-36.0)
[2018-06-15 09:16] LABS: Alanine Aminotransferase 73 U/L (10-53); Albumin 3.2 g/dL (3.4-5.0); Alkaline Phosphatase 61 U/L (45-117); Anion Gap 4 meq/L (5-15); Aspartate Aminotransferase 117 U/L (15-37); Blood Urea Nitrogen 10 mg/dL (7-18); Calcium 8.8 mg/dL (8.5-10.1); Chloride 100 meq/L (98-107); Glomerular Filtration Rate Greater Than 89 mL/min (>89); Glucose,Random 72 mg/dL (74-106); Potassium 5.2 meq/L (3.5-5.1); Sodium 141 meq/L (136-145); Total Protein 6.1 g/dL (6.4-8.2)
[2018-06-15 09:34] LABS: Basophilic Stippling Moderate; Toxic Vacuolation Present
[2018-06-15 09:36] LABS: Toxic Granulation 1+
[2018-06-15 09:37] LABS: Target Cells 1+
[2018-06-15 09:38] LABS: Platelet Estimate Normal (Normal); Platelet Morphology Normal (Normal)
--- NOTE | 2018-06-15 11:45 | P.PN ---
Subjective Interval history: Follow-up COPD exacerbation with respiratory failure June 14, 2018-patient seen and examined, still with shortness of breath and complains of chest pain and requesting more narcotics at this point. Patient state, she has a history of Crohn's disease thus the diarrhea June 15, 2018-patient seen and examined, reports some improvement of shortness of breath. Would like to go home. Still with diarrhea episode. Physical Exam Vital signs: Vital Signs 06/14/18 13:00 06/14/18 14:00 06/14/18 15:00 Temperature Pulse Rate 110 H 106 H 99 H Respiratory Rate Blood Pressure Pulse Oximetry 06/14/18 15:09 06/14/18 16:00 06/14/18 16:32 Temperature 98.4 F Pulse Rate 105 H 122 H 103 H Respiratory Rate 18 16 Blood Pressure 135/95 H Pulse Oximetry 95 06/14/18 17:00 06/14/18 18:00 06/14/18 19:00 Temperature Pulse Rate 114 H 112 H 106 H Respiratory Rate Blood Pressure Pulse Oximetry 06/14/18 19:51 06/14/18 20:00 06/14/18 21:00 Temperature Pulse Rate 110 H 113 H 114 H Respiratory Rate 25 H 18 Blood Pressure 143/91 H Pulse Oximetry 91 L 90 L 06/14/18 22:00 06/14/18 23:00 06/14/18 23:24 Temperature Pulse Rate 94 H 94 H 84 Respiratory Rate 16 Blood Pressure Pulse Oximetry 97 06/15/18 00:00 06/15/18 01:00 06/15/18 02:00 Temperature Pulse Rate 96 H 88 106 H Respiratory Rate 20 Blood Pressure 127/69 Pulse Oximetry 97 06/15/18 03:00 06/15/18 03:13 06/15/18 04:00 Temperature Pulse Rate 94 H 89 101 H Respiratory Rate 14 22 Blood Pressure Pulse Oximetry 94 L 06/15/18 05:00 06/15/18 06:00 06/15/18 06:09 Temperature Pulse Rate 96 H 83 103 H Respiratory Rate 22 Blood Pressure 128/89 Pulse Oximetry 99 06/15/18 07:32 06/15/18 08:00 06/15/18 09:00 Temperature 97.4 F L Pulse Rate 80 100 H 104 H Respiratory Rate 18 18 Blood Pressure 151/92 H Pulse Oximetry 99 97 06/15/18 10:00 Temperature Pulse Rate 104 H Respiratory Rate Blood Pressure Pulse Oximetry Intake & Output 06/14/18 06/15/18 06/15/18 18:59 06:59 18:59 Intake Total 1999 1540 / 1540 Output Total 2200 / 0 1200 / 1200 Balance -200 / -200 340 / 340 Weight 50.1 kg Intake: IV 1000 / 1000 NS + KCl 40 mEq Inj 1,000 ML @ 1000 / 1000 75 mls/hr IV.CONT .[id number] NICOLE Rx#:[id number] Oral 1999 540 / 540 Output: Urine/Stool Mix 2200 / 2200 1200 / 1200 Other: Date of Last Bowel Movement 06/14/18 06/14/18 06/15/18 # Bowel Movements 1 Narrative: GENERAL: NAD SKIN: Warm and dry. HEAD: Atraumatic. Normocephalic. EYES: Pupils equal and round. No scleral icterus. No injection or drainage. ENT: No nasal bleeding or discharge. Mucous membranes pink and moist. NECK: Trachea midline. No JVD. CARDIOVASCULAR: Regular rate and rhythm. RESPIRATORY: No accessory muscle use. Breath sounds decreased bilaterally. GASTROINTESTINAL: Abdomen soft, non-tender, nondistended. Hepatic and splenic margins not palpable. MUSCULOSKELETAL: Extremities without clubbing, cyanosis, or edema. No obvious deformities. NEUROLOGICAL: Awake and alert. No obvious cranial nerve deficits. Motor grossly within normal limits. Five out of 5 muscle strength in the arms and legs. Normal speech. PSYCHIATRIC: Appropriate mood and affect; insight and judgment normal. Results - Labs CBC & Chem 7: 06/15/18 07:50 06/15/18 07:50 Laboratory Results - last 24 hr 06/14/18 06/14/18 06/14/18 11:46 17:06 20:17 WBC RBC Hgb Hct MCV MCH MCHC RDW Plt Count MPV Prelim Diff (Auto) Neut % (Auto) Lymph % (Auto) [place] % (Auto) Eos % (Auto) Baso % (Auto) Neut # (Auto) Lymph # (Auto) [place] # (Auto) Eos # (Auto) Baso # (Auto) WBC Differential Diff Scan Differential Comment Toxic Granulation Toxic Vacuolation Platelet Estimate Platelet Morphology Basophilic Stippling Target Cells Keratocytes Sodium Potassium Chloride Carbon Dioxide Anion Gap BUN Creatinine Estimated GFR POC Glucose 197 H 173 H 168 H Random Glucose Calcium Total Bilirubin AST ALT Alkaline Phosphatase Total Protein Albumin 06/15/18 06/15/18 06/15/18 07:50 07:50 08:08 WBC 17.6 H RBC 5.60 H Hgb 11.8 Hct 38.2 MCV 68.3 L MCH 21.1 L MCHC 30.8 L RDW 18.7 H Plt Count 298 MPV 9.7 Prelim Diff (Auto) Slide review pending Neut % (Auto) 81.4 H Lymph % (Auto) 11.0 [place] % (Auto) 7.5 Eos % (Auto) 0.0 Baso % (Auto) 0.1 Neut # (Auto) 14.3 H Lymph # (Auto) 1.9 [place] # (Auto) 1.3 H Eos # (Auto) 0.0 Baso # (Auto) 0.0 WBC Differential . Diff Scan Auto diff confirmed Differential Comment . Toxic Granulation 1+ H Toxic Vacuolation Present H Platelet Estimate Normal Platelet Morphology Normal Basophilic [place] Moderate H Target Cells 1+ H Keratocytes Occ H Sodium 141 Potassium 5.2 H Chloride 100 Carbon Dioxide 37.0 H Anion Gap 4 L BUN 10 Creatinine 0.52 Estimated GFR Greater than 89 POC Glucose 73 Random Glucose 72 L Calcium 8.8 Total Bilirubin 1.0 AST 117 H ALT 73 H Alkaline Phosphatase 61 Total Protein 6.1 L D Albumin 3.2 L Microbiology 06/12/18 10:20 Blood - Peripheral Aerobic Blood Culture - Preliminary No growth in 3 days 06/12/18 10:20 Blood - Peripheral Anaerobic Blood Culture - Preliminary No growth in 3 days 06/12/18 10:15 Blood - Peripheral Aerobic Blood Culture - Preliminary No growth in 3 days 06/12/18 10:15 Blood - Peripheral Anaerobic Blood Culture - Preliminary No growth in 3 days - Procedures None Assessment and Plan - Plan 53-year-old female with Acute COPD exacerbation with acute respiratory failure Currently on Solu-Medrol now 40 mg every 12 hours IV, scheduled and as needed DuoNeb, Doxy, Symbicort and Spiriva Will start p.o. prednisone 20 mg daily on June 16, 2018 and discontinue Solu-Medrol tonight. Appreciate input from pulmonary medicine Maintain oxygen saturation above 92% Will need to walk test prior to discharge Patient with history of Crohn disease C. difficile diarrhea Continue with p.o. vancomycin and monitor Leukocytosis Secondary to chronic steroid use Continue to monitor platelet count Steroid-induced hyperglycemia Continue with sliding scale insulin Hemoglobin A1c 5.3 Anxiety Currently on Xanax 0.5 mg p.o. twice daily Hypokalemia Now resolved, and will discontinue IV fluid DVT prophylaxis: Heparin subcu Discharge Planning: Likely discharge in a.m. June 16, 2018
--- NOTE | 2018-06-15 16:05 | P.PN ---
Subjective Interval history: ALERT NAD SITTING IN CHAIR Physical Exam Vital signs: Vital Signs 06/14/18 16:32 06/14/18 17:00 06/14/18 18:00 Temperature Pulse Rate 103 H 114 H 112 H Respiratory Rate 16 Blood Pressure Pulse Oximetry Pulse Oximetry [Resting on Room Air] Pulse Oximetry [Resting with Oxygen] 06/14/18 19:00 06/14/18 19:51 06/14/18 20:00 Temperature Pulse Rate 106 H 110 H 113 H Respiratory Rate 25 H 18 Blood Pressure 143/91 H Pulse Oximetry 91 L 90 L Pulse Oximetry [Resting on Room Air] Pulse Oximetry [Resting with Oxygen] 06/14/18 21:00 06/14/18 22:00 06/14/18 23:00 Temperature Pulse Rate 114 H 94 H 94 H Respiratory Rate Blood Pressure Pulse Oximetry Pulse Oximetry [Resting on Room Air] Pulse Oximetry [Resting with Oxygen] 06/14/18 23:24 06/15/18 00:00 06/15/18 01:00 Temperature Pulse Rate 84 96 H 88 Respiratory Rate 16 20 Blood Pressure 127/69 Pulse Oximetry 97 97 Pulse Oximetry [Resting on Room Air] Pulse Oximetry [Resting with Oxygen] 06/15/18 02:00 06/15/18 03:00 06/15/18 03:13 Temperature Pulse Rate 106 H 94 H 89 Respiratory Rate 14 Blood Pressure Pulse Oximetry Pulse Oximetry [Resting on Room Air] Pulse Oximetry [Resting with Oxygen] 06/15/18 04:00 06/15/18 05:00 06/15/18 06:00 Temperature Pulse Rate 101 H 96 H 83 Respiratory Rate 22 Blood Pressure Pulse Oximetry 94 L Pulse Oximetry [Resting on Room Air] Pulse Oximetry [Resting with Oxygen] 06/15/18 06:09 06/15/18 07:32 06/15/18 08:00 Temperature 97.4 F L Pulse Rate 103 H 80 100 H Respiratory Rate 22 18 18 Blood Pressure 128/89 151/92 H Pulse Oximetry 99 99 97 Pulse Oximetry [Resting on Room Air] Pulse Oximetry [Resting with Oxygen] 06/15/18 09:00 06/15/18 10:00 06/15/18 12:00 Temperature 97.6 F Pulse Rate 104 H 104 H 109 H Respiratory Rate 18 Blood Pressure 147/64 H Pulse Oximetry 96 Pulse Oximetry [Resting on Room Air] Pulse Oximetry [Resting with Oxygen] 06/15/18 12:32 06/15/18 12:52 Temperature Pulse Rate 82 Respiratory Rate 18 Blood Pressure Pulse Oximetry Pulse Oximetry [Resting on Room Air] 84 L Pulse Oximetry [Resting with Oxygen] 94 L Intake & Output 06/14/18 06/15/18 06/15/18 18:59 06:59 18:59 Intake Total 1999 1540 / 1540 1000 / 1000 Output Total 2200 / 2200 1200 / 1200 Balance -200 / -200 340 / 340 1000 / 1000 Weight 50.1 kg Intake: IV 999 1000 / 999 NS + KCl 40 mEq Inj 1,000 ML @ 999 1000 / 1000 75 mls/hr IV.CONT .[id number] [facility] Rx#:[id number] Oral 1999 540 / 540 Output: Urine/Stool Mix 2200 / 2200 1200 / 1200 Other: Date of Last Bowel Movement 06/14/18 06/14/18 06/15/18 # Bowel Movements 1 Narrative: GENERAL: NAD SKIN: Warm and dry. HEAD: Atraumatic. Normocephalic. EYES: Pupils equal and round. No scleral icterus. No injection or drainage. ENT: No nasal bleeding or discharge. Mucous membranes pink and moist. NECK: Trachea midline. No JVD. CARDIOVASCULAR: Regular rate and rhythm. RESPIRATORY: No accessory muscle use. Breath sounds decreased bilaterally. GASTROINTESTINAL: Abdomen soft, non-tender, nondistended. Hepatic and splenic margins not palpable. MUSCULOSKELETAL: Extremities without clubbing, cyanosis, or edema. No obvious deformities. NEUROLOGICAL: Awake and alert. No obvious cranial nerve deficits. Motor grossly within normal limits. Five out of 5 muscle strength in the arms and legs. Normal speech. PSYCHIATRIC: Appropriate mood and affect; insight and judgment normal. Results - Labs CBC & Chem 7: 06/15/18 07:50 06/15/18 07:50 Laboratory Results - last 24 hr 06/14/18 06/14/18 06/15/18 17:06 20:17 07:50 WBC 17.6 H RBC 5.60 H Hgb 11.8 Hct 38.2 MCV 68.3 L MCH 21.1 L MCHC 30.8 L RDW 18.7 H Plt Count 298 MPV 9.7 Prelim Diff (Auto) Slide review pending Neut % (Auto) 81.4 H Lymph % (Auto) 11.0 [place] % (Auto) 7.5 Eos % (Auto) 0.0 Baso % (Auto) 0.1 Neut # (Auto) 14.3 H Lymph # (Auto) 1.9 [place] # (Auto) 1.3 H Eos # (Auto) 0.0 Baso # (Auto) 0.0 WBC Differential . Diff Scan Auto diff confirmed Differential Comment . Toxic Granulation 1+ H Toxic Vacuolation Present H Platelet Estimate Normal Platelet Morphology Normal Basophilic Stippling Moderate H Target Cells 1+ H Keratocytes Occ H Sodium Potassium Chloride Carbon Dioxide Anion Gap BUN Creatinine Estimated GFR POC Glucose 173 H 168 H Random Glucose Calcium Total Bilirubin AST ALT Alkaline Phosphatase Total Protein Albumin 06/15/18 06/15/18 06/15/18 07:50 08:08 12:22 WBC RBC Hgb Hct MCV MCH MCHC RDW Plt Count MPV Prelim Diff (Auto) Neut % (Auto) Lymph % (Auto) [place] % (Auto) Eos % (Auto) Baso % (Auto) Neut # (Auto) Lymph # (Auto) [place] # (Auto) Eos # (Auto) Baso # (Auto) WBC Differential Diff Scan Differential Comment Toxic Granulation Toxic Vacuolation Platelet Estimate Platelet Morphology Basophilic Stippling Target Cells Keratocytes Sodium 141 Potassium 5.2 H Chloride 100 Carbon Dioxide 37.0 H Anion Gap 4 L BUN 10 Creatinine 0.52 Estimated GFR Greater than 89 POC Glucose 73 138 H Random Glucose 72 L Calcium 8.8 Total Bilirubin 1.0 AST 117 H ALT 73 H Alkaline Phosphatase 61 Total Protein 6.1 L D Albumin 3.2 L Microbiology 06/12/18 10:20 Blood - Peripheral Aerobic Blood Culture - Preliminary No growth in 3 days 06/12/18 10:20 Blood - Peripheral Anaerobic Blood Culture - Preliminary No growth in 3 days 06/12/18 10:15 Blood - Peripheral Aerobic Blood Culture - Preliminary No growth in 3 days 06/12/18 10:15 Blood - Peripheral Anaerobic Blood Culture - Preliminary No growth in 3 days - Procedures None Assessment and Plan - Plan COPD EXACERBAION RESP. FAILURE IMPROVING PLAN O2 NEEDED BRONCHODILATOR THERAPY TAPER STEROIDS INCREASE ACTIVITY
[2018-06-16] MEDS: Chlorhexidine Gluconate 2% 1 Pack (2 Cloths) TOPICAL SCH (03:52)
[2018-06-16] MEDS: Insulin NovoLOG Aspart Correctional Sugar Inj SQ SCH ×2 (08:32→12:42)
[2018-06-16] MEDS: Budesonide-Formoterol 80/4.5 MCG 6.9 GM Inhaler INH SCH (08:33)
[2018-06-16] MEDS: Tiotropium Bromide 18 MCG/ACT Inhaler INH SCH (08:33)
[2018-06-16] MEDS: ALPRAZolam 0.5 MG Tablet PO SCH (08:33)
[2018-06-16] MEDS: Famotidine 20 MG Tablet PO SCH (08:33)
[2018-06-16] MEDS ORDERED: predniSONE 20 MG Tablet PO SCH (09:00)
--- NOTE | 2018-06-16 12:49 | P.PN ---
Subjective Interval history: Follow-up COPD exacerbation with respiratory failure June 14, 2018-patient seen and examined, still with shortness of breath and complains of chest pain and requesting more narcotics at this point. Patient state, she has a history of Crohn's disease thus the diarrhea June 15, 2018-patient seen and examined, reports some improvement of shortness of breath. Would like to go home. Still with diarrhea episode. June 16, 2018-patient seen and examined, she did not past walk test. Otherwise denies any shortness of breath or chest pain. Physical Exam Vital signs: Vital Signs 06/15/18 12:52 06/15/18 13:00 06/15/18 14:00 Temperature Pulse Rate 108 H 108 H Respiratory Rate Blood Pressure Pulse Oximetry Pulse Oximetry [Resting on Room Air] 84 L Pulse Oximetry [Resting with Oxygen] 94 L 06/15/18 15:00 06/15/18 16:00 06/15/18 16:46 Temperature 97.6 F Pulse Rate 103 H 104 H 99 H Respiratory Rate 20 16 Blood Pressure 148/67 H Pulse Oximetry 96 Pulse Oximetry [Resting on Room Air] Pulse Oximetry [Resting with Oxygen] 06/15/18 17:00 06/15/18 18:00 06/15/18 19:00 Temperature Pulse Rate 106 H 104 H 114 H Respiratory Rate Blood Pressure Pulse Oximetry Pulse Oximetry [Resting on Room Air] Pulse Oximetry [Resting with Oxygen] 06/15/18 19:44 06/15/18 19:54 06/15/18 20:00 Temperature 97.6 F Pulse Rate 111 H 109 H 110 H Respiratory Rate 22 20 Blood Pressure 155/86 H Pulse Oximetry 92 L 92 L 94 L Pulse Oximetry [Resting on Room Air] Pulse Oximetry [Resting with Oxygen] 06/15/18 21:00 06/15/18 22:00 06/15/18 23:00 Temperature Pulse Rate 104 H 106 H 106 H Respiratory Rate Blood Pressure Pulse Oximetry Pulse Oximetry [Resting on Room Air] Pulse Oximetry [Resting with Oxygen] 06/15/18 23:40 06/16/18 00:00 06/16/18 00:43 Temperature 98.0 F Pulse Rate 101 H 98 H 106 H Respiratory Rate 20 16 Blood Pressure 123/81 Pulse Oximetry 90 L Pulse Oximetry [Resting on Room Air] Pulse Oximetry [Resting with Oxygen] 06/16/18 01:00 06/16/18 02:00 06/16/18 03:00 Temperature Pulse Rate 105 H 91 H 85 Respiratory Rate Blood Pressure Pulse Oximetry Pulse Oximetry [Resting on Room Air] Pulse Oximetry [Resting with Oxygen] 06/16/18 03:39 06/16/18 04:00 06/16/18 04:07 Temperature 98.2 F Pulse Rate 102 H 94 H 92 H Respiratory Rate 16 18 Blood Pressure 138/94 H Pulse Oximetry 94 L Pulse Oximetry [Resting on Room Air] Pulse Oximetry [Resting with Oxygen] 06/16/18 05:00 06/16/18 06:00 06/16/18 07:00 Temperature Pulse Rate 92 H 85 89 Respiratory Rate Blood Pressure Pulse Oximetry Pulse Oximetry [Resting on Room Air] Pulse Oximetry [Resting with Oxygen] 06/16/18 07:38 06/16/18 08:00 06/16/18 11:35 Temperature 97.9 F Pulse Rate 102 H 108 H 107 H Respiratory Rate 16 18 18 Blood Pressure 140/103 H Pulse Oximetry 98 100 Pulse Oximetry [Resting on Room Air] Pulse Oximetry [Resting with Oxygen] Intake & Output 06/15/18 06/16/18 06/16/18 18:59 06:59 18:59 Intake Total 1000 / 1000 1680 / 1680 Output Total 2250 / 2250 Balance 1000 / 1000 -570 / -570 Weight 49.8 kg Intake: IV 1000 / 1000 NS + KCl 40 mEq Inj 1,000 ML @ 1000 / 1000 75 mls/hr IV.CONT .[id number] [facility] Rx#:[id number] Oral 1680 / 1680 Output: Urine 2250 / 2250 Other: Date of Last Bowel Movement 06/15/18 06/15/18 06/15/18 Narrative: GENERAL: NAD SKIN: Warm and dry. HEAD: Atraumatic. Normocephalic. EYES: Pupils equal and round. No scleral icterus. No injection or drainage. ENT: No nasal bleeding or discharge. Mucous membranes pink and moist. NECK: Trachea midline. No JVD. CARDIOVASCULAR: Regular rate and rhythm. RESPIRATORY: No accessory muscle use. Breath sounds decreased bilaterally. GASTROINTESTINAL: Abdomen soft, non-tender, nondistended. Hepatic and splenic margins not palpable. MUSCULOSKELETAL: Extremities without clubbing, cyanosis, or edema. No obvious deformities. NEUROLOGICAL: Awake and alert. No obvious cranial nerve deficits. Motor grossly within normal limits. Five out of 5 muscle strength in the arms and legs. Normal speech. PSYCHIATRIC: Appropriate mood and affect; insight and judgment normal. Results - Labs CBC & Chem 7: 06/15/18 07:50 06/15/18 07:50 Laboratory Results - last 24 hr 06/15/18 06/15/18 06/16/18 16:38 19:52 07:59 POC Glucose 161 H 117 H 82 06/16/18 12:10 POC Glucose 105 Microbiology 06/12/18 10:20 Blood - Peripheral Aerobic Blood Culture - Preliminary No growth in 4 days 06/12/18 10:20 Blood - Peripheral Anaerobic Blood Culture - Preliminary No growth in 4 days 06/12/18 10:15 Blood - Peripheral Aerobic Blood Culture - Preliminary No growth in 4 days 06/12/18 10:15 Blood - Peripheral Anaerobic Blood Culture - Preliminary No growth in 4 days - Procedures None Assessment and Plan - Plan 53-year-old female with Acute COPD exacerbation with acute respiratory failure s/p Solu-Medrol now 40 mg every 12 hours IV; continue scheduled and as needed DuoNeb, Doxy, Symbicort and Spiriva Currently on p.o. prednisone 20 mg daily Appreciate input from pulmonary medicine Maintain oxygen saturation above 92% Walk test performed today June 16, 2018 however patient will require oxygen on discharge Patient with history of Crohn disease C. difficile diarrhea Continue with p.o. vancomycin and monitor Leukocytosis Secondary to chronic steroid use Continue to monitor platelet count Steroid-induced hyperglycemia Continue with sliding scale insulin Hemoglobin A1c 5.3 Anxiety Currently on Xanax 0.5 mg p.o. twice daily Hypokalemia Now resolved DVT prophylaxis: Heparin subcu Discharge Planning: Likely discharge in a.m. June 16, 2018
--- NOTE | 2018-06-16 12:51 | P.DS ---
Date of admission: 06/12/18 11:36 Primary care physician: No Primary Care Physician Brief History from admission: Patient is a 53-year-old female with a past medical history significant for COPD on home O2, tobacco abuse, and recent fall injury with thoracic spine compression, rib and clavicular fractures 04/2018. At the time of evaluation patient is deemed to be a poor historian secondary to recent Ativan administration. History was obtained from RN, ED physician as well as chart review. RN states patient was extremely anxious after being placed on BiPAP and she received Ativan in order to help calm her down. Patient is resting in bed in no acute distress. ED physician as well as RN stated that on initial presentation patient was severely hypoxic with a O2 sat of 75%, tachypneic and sternal retractions. Patient had stated that she was running low on her home oxygen. Her shortness of breath started to progressively worsen 2 days prior to presentation. Patient's white blood cell count was elevated and 24.2. Her serum potassium level is low and 3.2. Chest x-ray shows no acute cardiopulmonary abnormality and background changes are consistent with emphysema. Patient was placed on BIPAP with IPAP of 12/EPAP 5 and an ABG was obtained that showed a pH of 7.4, O2 sat 86%, pCO2 59, HCO3 36. Patient does not appear in any acute distress at time of examination. She is sedated and does not open eyes to verbal stimuli or gentle sternal rub, however, she does withdraw from pain. Patient is being admitted to [facility] under the care of the hospitalist service. DS: Medications - Discharge Medications Prescriptions: albuterol sulfate [Ventolin HFA] 2 puff INHALATION Q4-6H PRN #1 g PRN Reason: Shortness Of Breath budesonide-formoterol [Symbicort] 1 puff INH BID #1 g ipratropium bromide [Atrovent HFA] 1 puff INHALATION QID #1 g prednisone 20 mg PO DAILY #7 tab DS: Summary Hospital Course: Patient admitted secondary to COPD exacerbation respiratory failure for which she was started on IV Solu-Medrol as well as bronchodilators long-acting and short acting. She was subsequently switched to p.o. prednisone with improvement of her COPD. Prior to discharge, a walk test was performed and patient will require oxygen at home. She was also started on p.o. vancomycin secondary to C. difficile diarrhea. DVT and GI prophylaxis were provided. PT was consulted. - Time Spent with Patient Total time spent providing and/or coordinating discharge services: Less than 30 minutes Exam Vital signs: Vital Signs 06/15/18 12:52 06/15/18 13:00 06/15/18 14:00 Temperature Pulse Rate 108 H 108 H Respiratory Rate Blood Pressure Pulse Oximetry Pulse Oximetry [Resting on Room Air] 84 L Pulse Oximetry [Resting with Oxygen] 94 L 06/15/18 15:00 06/15/18 16:00 06/15/18 16:46 Temperature 97.6 F Pulse Rate 103 H 104 H 99 H Respiratory Rate 20 16 Blood Pressure 148/67 H Pulse Oximetry 96 Pulse Oximetry [Resting on Room Air] Pulse Oximetry [Resting with Oxygen] 06/15/18 17:00 06/15/18 18:00 06/15/18 19:00 Temperature Pulse Rate 106 H 104 H 114 H Respiratory Rate Blood Pressure Pulse Oximetry Pulse Oximetry [Resting on Room Air] Pulse Oximetry [Resting with Oxygen] 06/15/18 19:44 06/15/18 19:54 06/15/18 20:00 Temperature 97.6 F Pulse Rate 111 H 109 H 110 H Respiratory Rate 22 20 Blood Pressure 155/86 H Pulse Oximetry 92 L 92 L 94 L Pulse Oximetry [Resting on Room Air] Pulse Oximetry [Resting with Oxygen] 06/15/18 21:00 06/15/18 22:00 06/15/18 23:00 Temperature Pulse Rate 104 H 106 H 106 H Respiratory Rate Blood Pressure Pulse Oximetry Pulse Oximetry [Resting on Room Air] Pulse Oximetry [Resting with Oxygen] 06/15/18 23:40 06/16/18 00:00 06/16/18 00:43 Temperature 98.0 F Pulse Rate 101 H 98 H 106 H Respiratory Rate 20 16 Blood Pressure 123/81 Pulse Oximetry 90 L Pulse Oximetry [Resting on Room Air] Pulse Oximetry [Resting with Oxygen] 06/16/18 01:00 06/16/18 02:00 06/16/18 03:00 Temperature Pulse Rate 105 H 91 H 85 Respiratory Rate Blood Pressure Pulse Oximetry Pulse Oximetry [Resting on Room Air] Pulse Oximetry [Resting with Oxygen] 06/16/18 03:39 06/16/18 04:00 06/16/18 04:07 Temperature 98.2 F Pulse Rate 102 H 94 H 92 H Respiratory Rate 16 18 Blood Pressure 138/94 H Pulse Oximetry 94 L Pulse Oximetry [Resting on Room Air] Pulse Oximetry [Resting with Oxygen] 06/16/18 05:00 06/16/18 06:00 06/16/18 07:00 Temperature Pulse Rate 92 H 85 89 Respiratory Rate Blood Pressure Pulse Oximetry Pulse Oximetry [Resting on Room Air] Pulse Oximetry [Resting with Oxygen] 06/16/18 07:38 06/16/18 08:00 06/16/18 11:35 Temperature 97.9 F Pulse Rate 102 H 108 H 107 H Respiratory Rate 16 18 18 Blood Pressure 140/103 H Pulse Oximetry 98 100 Pulse Oximetry [Resting on Room Air] Pulse Oximetry [Resting with Oxygen] Intake & Output 06/15/18 06/16/18 06/16/18 18:59 06:59 18:59 Intake Total 1000 / 1000 1680 / 1680 Output Total 2250 / 2250 Balance 1000 / 1000 -570 / -570 Weight 49.8 kg Intake: IV 1000 / 1000 NS + KCl 40 mEq Inj 1,000 ML @ 1000 / 1000 75 mls/hr IV.CONT .[id number] [facility] Rx#:[id number] Oral 1680 / 1680 Output: Urine 2250 / 2250 Other: Date of Last Bowel Movement 06/15/18 06/15/18 06/15/18 Narrative: GENERAL: NAD SKIN: Warm and dry. HEAD: Atraumatic. Normocephalic. EYES: Pupils equal and round. No scleral icterus. No injection or drainage. ENT: No nasal bleeding or discharge. Mucous membranes pink and moist. NECK: Trachea midline. No JVD. CARDIOVASCULAR: Regular rate and rhythm. RESPIRATORY: No accessory muscle use. Breath sounds decreased bilaterally. GASTROINTESTINAL: Abdomen soft, non-tender, nondistended. Hepatic and splenic margins not palpable. MUSCULOSKELETAL: Extremities without clubbing, cyanosis, or edema. No obvious deformities. NEUROLOGICAL: Awake and alert. No obvious cranial nerve deficits. Motor grossly within normal limits. Five out of 5 muscle strength in the arms and legs. Normal speech. PSYCHIATRIC: Appropriate mood and affect; insight and judgment normal. Results Procedures completed during hospitalization: None Labs on day of discharge: Labs from last 24 hours 12/06/16/18 06/15/18 12:10 07:59 19:52 POC Glucose 105 82 117 H 06/15/18 16:38 POC Glucose 161 H Preliminary micro results at discharge 06/12/18 10:20 Aerobic Blood Culture - Preliminary Blood - Peripheral No growth in 4 days Anaerobic Blood Culture - Preliminary No growth in 4 days 06/12/18 10:15 Aerobic Blood Culture - Preliminary Blood - Peripheral No growth in 4 days Anaerobic Blood Culture - Preliminary No growth in 4 days - Impressions ITS Impressions Chest X-Ray 06/12/18 09:14 CONCLUSION: No acute cardiopulmonary abnormality is identified. Background changes are characteristic of emphysema. Discharge Plan - Discharge Disposition Patient Disposition: Discharge Home - Discharge Condition Condition: Fair - Discharge Order Discharge Orders: Discharge Order (Routine); Ordered 06/16/18 Ordered By: Bandar Emmanuel - Physicians Team Primary Care Provider: Primary Care Caroline Crenshaw Attending Provider: Bandar Emmanuel Other Providers: Mariola Garnett MD
[2018-06-16] MEDS: Heparin - SQ 10,000 UNITS/ML Vial SQ SCH (13:26)
[2018-06-16 13:29] VITALS: BP 142/78; PULSE 124; RESP 20; TEMP 98; O2SAT 93
== END 2018-06-16 14:20 | disposition home or self-care (01) ==
LOC: NEPC 09:04 → NEDA 11:36 → HCVI 13:43 → HCIS 13:44 → HCVI 14:01
PROVIDERS: ADMIT Hospitalist; ATTEND Hospitalist